=== PATIENT | male | born 1945 | race Caucasian/White ===

== ENCOUNTER 2019-09-16 20:05 | Emergency (ER) | payer MEDICARE, OTHER, SELFPAY ==
[2019-09-16 20:25] VITALS: BP 133/81; PULSE 126; RESP 22; TEMP 39.1; O2SAT 92; BMI 27.3
== END 2019-09-16 21:43 | disposition home or self-care (01) ==
LOC: ER 09-17 03:14
PROVIDERS: Emergency Provider Emergency Medicine; Family Provider Internal Medicine; PCP Internal Medicine
DX: Z53.21 Procedure and treatment not carried out due to patient leaving prior to being seen by health care provider (principal)
CPT/HCPCS: 99281

== ENCOUNTER 2019-12-16 11:20 | Outpatient (CLI) | payer MEDICARE, OTHER, SELFPAY ==
[2019-12-16 12:17] LABS: Basophils % 0.5 %; Eosinophils # 0.1 10^3/uL (0.0-0.8); Eosinophils % 2.2 %; Hematocrit 43.1 % (42.0-52.0); Hemoglobin 13.9 g/dL (11.7-16.6); Lymphocytes # 1.4 10^3/uL (0.8-4.8); Lymphocytes % 26.2 %; Mean Corpuscular HGB Conc 32.3 g/dL (30.0-36.0); Mean Corpuscular Hemoglobin 29.4 pg (28.0-34.0); Mean Corpuscular Volume 91.1 fL (80-94); Mean Platelet Volume 9.7 fL (7.4-10.4); Monocytes # 0.3 10^3/uL (0.2-0.9); Monocytes % 5.8 %; Neutrophils # 3.6 10^3/uL (1.8-7.7); Neutrophils % 65.1 %; Nucleated Red Blood Cells % 0 %; Platelet Count 212 10^3/cmm (130-400); Red Blood Count 4.73 10^6/uL (4.1-5.3); Red Cell Distribution Width 13.7 % (12.1-15.1); White Blood Count 5.5 10^3/uL (4.0-10.0)
[2019-12-16 12:43] LABS: Alanine Aminotransferase 20 U/L (0-41); Albumin Level 3.9 g/dL (3.5-5.2); Alkaline Phosphatase 159 IU/L (40-130); Aspartate Amino Transferase 25 U/L (0-40); Blood Urea Nitrogen 12 mg/dL (8-23); Calcium 9.2 mg/dL (8.5-10.5); Carbon Dioxide 25 mmol/L (22-29); Chloride 103 mmol/L (98-107); Globulin 3.1 g/dL (1.3-4.6); Glucose 122 mg/dL (65-115); Osmolality Calculated 287 mOsm/kg (285-295); Sodium 140 mmol/L (136-145); Total Bilirubin 0.4 mg/dL (0.15-1.2)
[2019-12-16 12:52] LABS: Cancer Antigen 19 9 25.77 U/mL (0-35)
== END 2019-12-16 11:21 | disposition home or self-care (01) ==
LOC: ONCMED 12:54
PROVIDERS: Family Provider Internal Medicine; PCP Internal Medicine; Visit Provider Internal Medicine Medical Oncology
DX: C25.0 Malignant neoplasm of head of pancreas (principal)
CPT/HCPCS: 80053; 85025; 86301

== ENCOUNTER 2020-03-22 09:32 | Outpatient (CLI) | payer MEDICARE, OTHER, SELFPAY ==
[2020-03-22 09:58] LABS: Basophils % 0.6 %; Eosinophils # 0.2 10^3/uL (0.0-0.8); Hematocrit 43.1 % (42.0-52.0); Hemoglobin 13.3 g/dL (11.7-16.6); Lymphocytes # 2.1 10^3/uL (0.8-4.8); Lymphocytes % 30.2 %; Mean Corpuscular HGB Conc 30.9 g/dL (30.0-36.0); Mean Corpuscular Hemoglobin 29.2 pg (28.0-34.0); Mean Corpuscular Volume 94.5 fL (80-94); Mean Platelet Volume 9.7 fL (7.4-10.4); Monocytes # 0.5 10^3/uL (0.2-0.9); Monocytes % 7.3 %; Neutrophils # 4.09 10^3/uL (1.8-7.7); Neutrophils % 58.5 %; Nucleated Red Blood Cells % 0 %; Platelet Count 197 10^3/cmm (130-400); Red Blood Count 4.56 10^6/uL (4.1-5.3); Red Cell Distribution Width 14.3 % (12.1-15.1)
[2020-03-22 10:21] LABS: Alanine Aminotransferase 15 U/L (0-41); Albumin Level 3.9 g/dL (3.5-5.2); Alkaline Phosphatase 129 IU/L (40-130); Aspartate Amino Transferase 23 U/L (0-40); Blood Urea Nitrogen 21 mg/dL (8-23); Cancer Antigen 19 9 26.58 U/mL (0-35); Carbon Dioxide 20 mmol/L (22-29); Chloride 103 mmol/L (98-107); Globulin 3.7 g/dL (1.3-4.6); Glucose 153 mg/dL (65-115); Osmolality Calculated 278 mOsm/kg (285-295); Sodium 134 mmol/L (136-145); Total Bilirubin 0.6 mg/dL (0.15-1.2); Total Protein 7.6 g/dL (6.6-8.7)
--- NOTE | 2020-03-24 16:15 | ONC FU_ITS ---
Dr. Acosta Patient Follow-Up Note Patient: Misbah Springer Unit #: [id number]: 1945 Dicatated By: Evaristo Acosta M.D.Date of Visit:Mar 22, 2020 Onc Med Follow-up/Prog Note Chief Complaint: Pancreatic cancer. History of Present Illness: This is a 74 year-old man with adenocarcinoma of the head of the pancreas. By clinical evaluation, his disease appeared to be stage IIA (T3, N0, M0). His symptoms began in December 2017 with a sensation of fullness in the abdominal area. He then lost appetite and began losing weight. He also got very weak. His CT of the abdomen on 02/15/2018 showed pancreatic ductal dilatation and common bile duct dilatation, the latter measuring up to 22 mm, with abrupt termination secondary to a pancreatic head mass. The mass appeared to measure 3.5 x 3.3 cm. The exam was limited to due lack of IV contrast. He was referred to Dr. Cain Joseph at [facility] in [place] where he underwent ERCP with placement of biliary stent on 03/08/2018. The ERCP showed roughly 3 cm stricture of the distal bile duct with dilatation of the extrahepatic biliary tree proximal to that area. Upper EUS at that time showed a 3.6 x 3.7 hypoechoic mass at the level of the head of the pancreas with obstruction of the extrahepatic bile duct. The mass did not appear to involve the visualized portions of the celiac artery or SMA, but it was noted to abut the portal vein. A 12 x 9 mm hyperechoic nodule was noted in the left lobe of the liver. He underwent FNA of both the pancreatic head mass and the hepatic lesion. Pathology on the liver showed benign hepatocytes with no malignant cells identified. The pancreas showed atypical cells, but no definite malignancy. He had surgical oncology consultation with Dr. Trev Marquez at [facility] on 03/29/2018. CT abdomen/pelvis at that time showed mass in the head of the pancreas measuring approximately 3.8 cm. It was noted to infiltrate the surrounding fat in the pancreaticoduodenal groove. The mass was noted to abut the common hepatic artery along its inferior margin, but it did not appear to be encasing it. It was also noted to abut the inferior margin of the portal vein and the right lateral margin of the geno splenic confluence, but it did not appear to encase vascular structures. The superior mesenteric vein, splenic vein, celiac trunk, splenic artery, and superior mesenteric artery were noted to all be distant from the mass. His recommendation was to initiate chemotherapy following confirmation of tissue diagnosis and then reevaluate for possible surgical resection or chemoradiation. Repeat FNA of the pancreatic head mass on 04/05/2018 was positive for adenocarcinoma. I had seen him initially on 04/20/2018. After discussing options for neoadjuvant chemotherapy, he agreed to begin treatment with a modified FOLFIRINOX regimen. It was administered at a reduced dosage of irinotecan and with omission of the 5-FU bolus. He began cycle 1 of FOLFIRINOX on 04/28/2018. His baseline CA-19-9 level was 515 U/mL. He had no acute toxicity with his treatment. However, at day 10 he was admitted to the hospital after presenting to the emergency room with abdominal pain and fever. He was severely neutropenic, ANC 200. He was treated with Neupogen and broad-spectrum antibiotic coverage, with subsequent recovery. However, during that time he also developed pretty severe diarrhea as well as nausea and anorexia. His clinical course also was complicated by urinary retention. He was discharged home on 05/14/2018 with indwelling Kelly catheter. He was seen for a follow-up visit on 05/24/2018. He still had somewhat marginal performance status, but at that point he was improving. His CA-19-9 level had decreased significantly, to 227 U/mL. Given the fact that he did appear to be showing response to the chemotherapy, we did opt to continue his treatment, but with the regimen changed to modified FOLFOX. He developed some increase in neuropathy with the 1st cycle of FOLFOX, but he otherwise tolerated it well. He was able to continue with the 2nd cycle on 06/07/2018. At that point there was further decrease in the CA-19-9 level to 90 U/mL. He then continued with cycle 3 on 06/22/2018. The CA-19-9 had declined to 44 U/mL. He had followup with Dr. Marquez at [facility] on 07/05/2018. As he appeared to have a good response to the neoadjuvant chemotherapy he was offered the option of undergoing surgical resection. He then underwent pancreaticoduodenectomy on 08/18/2018 with complete resection of the tumor. There was no gross evidence of metastatic disease. Pathology showed just a single focus of residual adenocarcinoma measuring less than 0.1 cm, consistent with near-complete response. There was a residual fibrotic tumor bed extending for approximately 2.1 cm, and there was adjacent high-grade dysplasia. There was no lymphovascular or perineural invasion present. All margins were negative for malignancy. A total of 20 regional lymph nodes were negative for metastatic involvement. Final staging was ypT1a, ypN0. Given the excellent response to the neoadjuvant treatment he was recommended to have additional 4 to 8 cycles of postoperative adjuvant chemotherapy and possibly chemoradiation. He began cycle 1 of postoperative adjuvant chemotherapy with modified FOLFOX on 09/28/2018. He had mild neuropathy symptoms, but no other significant toxicity. He continued with his 2nd postoperative cycle on 10/12/2018, with cycle 3 on 10/26/2018, and with cycle 4 on 11/09/2018. At that point his neuropathy symptoms were getting noticeably worse, and it did opt to stop his chemotherapy after that treatment. He was then followed on observation/expectant management, as he opted not to take chemoradiation. His other medical illnesses include hypertension, dyslipidemia, hypothyroidism, obstructive sleep apnea, and benign prostatic hypertrophy. He also has a history of seizure. He is a nonsmoker. INTERIM HISTORY: He is seen for a followup visit. He has been feeling good generally. He has good energy and activity tolerance. ECOG score is 0. His appetite is pretty good. He does have early satiety. His weight is down just a couple of pounds. He does not have fever or night sweats. He has no shortness of breath, cough, or chest pain. He has no GI or complaints. He has no significant joint or bone pain. He has no residual neuropathy symptoms. Medications: Levothyroxine Sodium 1 Tablet (of 125 mcg) Oral daily, Metoprolol Succinate ER 1.5 (50 mg) Tablet SR 24 HR Oral daily, Tamsulosin HCl 1 Tablet (of 0.4 mg) Capsule Oral at bedtime Allergies: Amoxicillin and Sulfa. Review of Systems: Constitutional - He is generally feeling good and his energy is good. He has normal activity. His appetite is good and weight is down a few pounds from last visit. No fever, night sweats, or hot flashes. ECOG score is 0, ENMT - No sinus congestion/drainage. No mouth sores. No sore throat or difficulty swallowing, Hematologic/Lymphatic - He bruises easily, Respiratory - No shortness of breath. No cough. No pleuritic pain or hemoptysis, Cardiovascular - No angina pain. No palpitations, Gastrointestinal - No nausea or vomiting. No heartburn or acid reflux. No diarrhea or constipation. No blood in the stool or black stools, Genitourinary (M) - No dysuria or hematuria. No urinary frequency. No urgency or incontinence, Musculoskeletal - No joint or bone pain, Integumentary - No skin complications, Neurologic - No headache or dizziness. No numbness or tingling. No other focal neurologic symptoms, Psychiatric - No anxiety or depression. No insomnia. Vital Signs: Performed on Mar 22, 2020 15:17 Height - 68.00 in Weight - 184.4 lbs (LOW) BSA - 1.97 sq.m BMI - 28.04 Temperature - 97.8 F (LOW) Pulse - 51 /min (LOW) Respiration - 18 /min BP - 123/77 mm(hg) O2 Sat - 96 % Pain - 0 Physical Examination: Constitutional - He looks good generally, Eyes - Sclerae nonicteric. Conjunctivae clear, ENMT - No lesions noted in the oral cavity, Hematologic/Lymphatic - No cervical, clavicular, or axillary adenopathy, Respiratory - Lungs are clear with good air movement bilaterally, Cardiovascular - Heart rhythm is regular. There is no murmur, gallop, or rub noted, Abdomen - Soft. He has a large ventral hernia. Liver and spleen are not enlarged. There is no abdominal mass or ascites noted and there is no inguinal adenopathy, Extremities - No edema, Neurologic - No focal neurologic deficits noted. Lab/Imaging: Test performed on Mar 22, 2020 09:45 Sodium 134 mmol/L Potassium 4.0 mmol/L Chloride 103 mmol/L CO2 20 mmol/L Anion Gap 15.0 BUN 21 mg/dL Creatinine 0.9 mg/dL Cr Clearance (Est) 85.1000 mL/min Glucose 153 mg/dL Calcium 9.0 mg/dL Protein, Total 7.6 g/dL Albumin 3.9 g/dL Globulin 3.7 g/dL Bilirubin, Total 0.6 mg/dL ALT (SGPT) 15 U/L AST (SGOT) 23 U/L Alkaline Phosphatase 129 IU/L WBC 7.0 10 3/uL RBC 4.56 10 6/uL HGB 13.3 g/dL HCT 43.1 % MCV 94.5 fL MCH 29.2 pg MCHC 30.9 g/dL RDW 14.3 % Platelet Count 197 10 3/cmm MPV 9.7 fL Neutrophils 4.09 10 3/uL Lymphocytes 2.1 10 3/uL Monocytes 0.5 10 3/uL Eosinophils 0.2 10 3/uL Basophils 0.0 10 3/uL Neutrophil % 58.5 % Lymphocyte % 30.2 % Monocyte % 7.3 % Eosinophil % 3.0 % Basophils % 0.6 % NRBC % 0 % CA 19-9 26.58 U/mL Impression: 1. Patient with adenocarcinoma of the head of the pancreas. By clinical evaluation, his disease appears to be stage IIA (T3, N0, M0). 2. He underwent ERCP with placement of biliary stent and upper EUS 03/08/2018. 3. The diagnosis was confirmed by repeat FNA of the pancreatic head mass on 04/07/2018. His other medical illnesses include: 4. Hypertension. 5. Hyperlipidemia. 6. Hypothyroidism. 7. Obstructive sleep apnea. 8. Benign prostatic hypertrophy. 9. He has a history of seizure. He was recommended to undergo neoadjuvant chemotherapy followed by possible surgery or chemoradiation. He began cycle 1 of neoadjuvant FOLFIRINOX chemotherapy on 04/28/2018. It was administered at a reduced dosage of irinotecan and with omission of the 5-FU bolus. Despite those modifications, he developed multiple toxicities. He required hospital admission at day 10 with neutropenic fever. He recovered uneventfully, but he went on to develop diarrhea and pretty severe nausea/anorexia. He also developed urinary retention, requiring indwelling Kelly catheter. As of his follow-up visit on 05/24/2018 he appeared to have recovered adequately. His CA-19-9 level had declined significantly, from 550 to 227 U/mL. As he did appear to be showing response to chemotherapy, and opted to continue treatment but with the regimen changed to modified FOLFOX. He began cycle 1 on 05/25/2018. He had some increase in neuropathy following that treatment, but he otherwise tolerated it well. He received cycle 2 of modified FOLFOX on 06/07/2018, but with a dose reduction in the oxaliplatin. He continued with cycle 3 of modified FOLFOX in 06/22/2018. At that point his CA-19-9 level had declined to 44 U/mL. He had follow-up with Dr. Marquez at [facility], and given the excellent response to the chemotherapy he was offered the option of undergoing surgical resection. He then underwent pancreaticoduodenectomy on 08/18/2018. Pathology showed near complete response to the chemotherapy with just 1 focus of residual tumor measuring less than 0.1 cm. The surgical margins were free, and there was no involvement in 20 regional lymph nodes. Final pathologic staging was ypT1a, ypN0. Given the excellent response to the neoadjuvant treatment, he was recommended to undergo postoperative adjuvant chemotherapy. He began postoperative cycle 1 of modified FOLFOX on 09/28/2018. He tolerated it pretty well. He was able to continue treatment at 2-week intervals. As of 11/09/2018 he began his 4th postoperative cycle of modified FOLFOX. At that point he had worsening neuropathy with the oxaliplatin, and I opted to stop his chemotherapy after that treatment. He declined to undergo chemoradiation. During subsequent follow-up he had improvement in his performance status, and he had complete resolution of his neuropathy symptoms. At this point he appears to be doing well. There has been no clinical evidence to suggest recurrence of the pancreatic cancer, and his tumor marker remains stable. Plan: He remains on observation/expectant management. I will see him again in 3 months. Signed By: Evaristo Acosta M.D. <<Signature on File>>
== END 2020-03-22 09:33 | disposition home or self-care (01) ==
LOC: ONCMED 09:37
PROVIDERS: PCP Internal Medicine; Visit Provider Internal Medicine Medical Oncology
DX: Z08 Encounter for follow-up examination after completed treatment for malignant neoplasm (principal); Z85.07 Personal history of malignant neoplasm of pancreas; I10 Essential (primary) hypertension; E78.5 Hyperlipidemia, unspecified; E03.9 Hypothyroidism, unspecified; G47.33 Obstructive sleep apnea (adult) (pediatric); N40.0 Benign prostatic hyperplasia without lower urinary tract symptoms; Z90.411 Acquired partial absence of pancreas; Z92.21 Personal history of antineoplastic chemotherapy
CPT/HCPCS: 80053; 85025; 86301; G0463

== ENCOUNTER 2020-07-09 11:32 | Outpatient (CLI) | payer MEDICARE, OTHER, SELFPAY ==
[2020-07-09 12:21] LABS: Basophils # 0.1 10^3/uL (0.0-0.1); Basophils % 0.9 %; Eosinophils # 0.2 10^3/uL (0.0-0.8); Eosinophils % 2.8 %; Hematocrit 43.7 % (42.0-52.0); Hemoglobin 14.1 g/dL (11.7-16.6); Lymphocytes # 2.2 10^3/uL (0.8-4.8); Lymphocytes % 33.1 %; Mean Corpuscular HGB Conc 32.3 g/dL (30.0-36.0); Mean Corpuscular Hemoglobin 30.1 pg (28.0-34.0); Mean Corpuscular Volume 93.2 fL (80-94); Mean Platelet Volume 9.4 fL (7.4-10.4); Monocytes # 0.4 10^3/uL (0.2-0.9); Monocytes % 6.5 %; Neutrophils % 56.4 %; Nucleated Red Blood Cells % 0 %; Platelet Count 222 10^3/cmm (130-400); Red Blood Count 4.69 10^6/uL (4.1-5.3); Red Cell Distribution Width 13.6 % (12.1-15.1); White Blood Count 6.7 10^3/uL (4.0-10.0)
[2020-07-09 13:01] LABS: Alanine Aminotransferase 24 U/L (0-41); Albumin Level 4.2 g/dL (3.5-5.2); Alkaline Phosphatase 158 IU/L (40-130); Anion Gap 12.5 (5-19); Aspartate Amino Transferase 27 U/L (0-40); Blood Urea Nitrogen 15 mg/dL (8-23); Calcium 9.2 mg/dL (8.5-10.5); Cancer Antigen 19 9 31.34 U/mL (0-35); Carbon Dioxide 28 mmol/L (22-29); Chloride 101 mmol/L (98-107); Globulin 3.1 g/dL (1.3-4.6); Glucose 102 mg/dL (65-115); Osmolality Calculated 285 mOsm/kg (285-295); Potassium 4.5 mmol/L (3.5-5.1); Sodium 137 mmol/L (136-145); Total Bilirubin 0.5 mg/dL (0.15-1.2); Total Protein 7.3 g/dL (6.6-8.7)
--- NOTE | 2020-07-09 21:26 | ONC FU_ITS ---
Dr. Acosta Patient Follow-Up Note Patient: Misbah Springer Unit #: [id number]: 1945 Dicatated By: Evaristo Acosta M.D.Date of Visit:Jul 09, 2020 Onc Med Follow-up/Prog Note Chief Complaint: Pancreatic cancer. History of Present Illness: This is a 74 year-old man with adenocarcinoma of the head of the pancreas. By clinical evaluation, his disease appeared to be stage IIA (T3, N0, M0). His symptoms began in December 2017 with a sensation of fullness in the abdominal area. He then lost appetite and began losing weight. He also got very weak. His CT of the abdomen on 02/15/2018 showed pancreatic ductal dilatation and common bile duct dilatation, the latter measuring up to 22 mm, with abrupt termination secondary to a pancreatic head mass. The mass appeared to measure 3.5 x 3.3 cm. The exam was limited to due lack of IV contrast. He was referred to Dr. Cain Joseph at [facility] in [place] where he underwent ERCP with placement of biliary stent on 03/08/2018. The ERCP showed roughly 3 cm stricture of the distal bile duct with dilatation of the extrahepatic biliary tree proximal to that area. Upper EUS at that time showed a 3.6 x 3.7 hypoechoic mass at the level of the head of the pancreas with obstruction of the extrahepatic bile duct. The mass did not appear to involve the visualized portions of the celiac artery or SMA, but it was noted to abut the portal vein. A 12 x 9 mm hyperechoic nodule was noted in the left lobe of the liver. He underwent FNA of both the pancreatic head mass and the hepatic lesion. Pathology on the liver showed benign hepatocytes with no malignant cells identified. The pancreas showed atypical cells, but no definite malignancy. He had surgical oncology consultation with Dr. Trev Marquez at [facility] on 03/29/2018. CT abdomen/pelvis at that time showed mass in the head of the pancreas measuring approximately 3.8 cm. It was noted to infiltrate the surrounding fat in the pancreaticoduodenal groove. The mass was noted to abut the common hepatic artery along its inferior margin, but it did not appear to be encasing it. It was also noted to abut the inferior margin of the portal vein and the right lateral margin of the geno splenic confluence, but it did not appear to encase vascular structures. The superior mesenteric vein, splenic vein, celiac trunk, splenic artery, and superior mesenteric artery were noted to all be distant from the mass. His recommendation was to initiate chemotherapy following confirmation of tissue diagnosis and then reevaluate for possible surgical resection or chemoradiation. Repeat FNA of the pancreatic head mass on 04/05/2018 was positive for adenocarcinoma. I had seen him initially on 04/20/2018. After discussing options for neoadjuvant chemotherapy, he agreed to begin treatment with a modified FOLFIRINOX regimen. It was administered at a reduced dosage of irinotecan and with omission of the 5-FU bolus. He began cycle 1 of FOLFIRINOX on 04/28/2018. His baseline CA-19-9 level was 515 U/mL. He had no acute toxicity with his treatment. However, at day 10 he was admitted to the hospital after presenting to the emergency room with abdominal pain and fever. He was severely neutropenic, ANC 200. He was treated with Neupogen and broad-spectrum antibiotic coverage, with subsequent recovery. However, during that time he also developed pretty severe diarrhea as well as nausea and anorexia. His clinical course also was complicated by urinary retention. He was discharged home on 05/14/2018 with indwelling Kelly catheter. He was seen for a follow-up visit on 05/24/2018. He still had somewhat marginal performance status, but at that point he was improving. His CA-19-9 level had decreased significantly, to 227 U/mL. Given the fact that he did appear to be showing response to the chemotherapy, we did opt to continue his treatment, but with the regimen changed to modified FOLFOX. He developed some increase in neuropathy with the 1st cycle of FOLFOX, but he otherwise tolerated it well. He was able to continue with the 2nd cycle on 06/07/2018. At that point there was further decrease in the CA-19-9 level to 90 U/mL. He then continued with cycle 3 on 06/22/2018. The CA-19-9 had declined to 44 U/mL. He had followup with Dr. Marquez at [facility] on 07/05/2018. As he appeared to have a good response to the neoadjuvant chemotherapy he was offered the option of undergoing surgical resection. He then underwent pancreaticoduodenectomy on 08/18/2018 with complete resection of the tumor. There was no gross evidence of metastatic disease. Pathology showed just a single focus of residual adenocarcinoma measuring less than 0.1 cm, consistent with near-complete response. There was a residual fibrotic tumor bed extending for approximately 2.1 cm, and there was adjacent high-grade dysplasia. There was no lymphovascular or perineural invasion present. All margins were negative for malignancy. A total of 20 regional lymph nodes were negative for metastatic involvement. Final staging was ypT1a, ypN0. Given the excellent response to the neoadjuvant treatment he was recommended to have additional 4 to 8 cycles of postoperative adjuvant chemotherapy and possibly chemoradiation. He began cycle 1 of postoperative adjuvant chemotherapy with modified FOLFOX on 09/28/2018. He had mild neuropathy symptoms, but no other significant toxicity. He continued with his 2nd postoperative cycle on 10/12/2018, with cycle 3 on 10/26/2018, and with cycle 4 on 11/09/2018. At that point his neuropathy symptoms were getting noticeably worse, and it did opt to stop his chemotherapy after that treatment. He was then followed on observation/expectant management, as he opted not to take chemoradiation. His other medical illnesses include hypertension, dyslipidemia, hypothyroidism, obstructive sleep apnea, and benign prostatic hypertrophy. He also has a history of seizure. He is a nonsmoker. INTERIM HISTORY: He is seen for a followup visit. He has been feeling good generally. He has pretty good energy. He is able to do light work. His appetite has been okay, though he does not eat as much at 1 time as he used to. His weight is up 5 pounds. He occasionally will have fever, though without any other associated symptoms. His had recently documented his temperature at 102.8 degrees. He does not have night sweating. He has no shortness of breath, cough, or chest pain. He has no GI/ complaints other than his stomach sometimes rumbles a lot. He has no significant joint or bone pain. He does not complain of headache. He does have some difficulty with balance. He has no numbness/paresthesia or other focal neurologic symptoms. Medications: Levothyroxine Sodium 1 Tablet (of 125 mcg) Oral daily, Metoprolol Succinate ER 1.5 (50 mg) Tablet SR 24 HR Oral daily, Tamsulosin HCl 1 Tablet (of 0.4 mg) Capsule Oral at bedtime Allergies: Amoxicillin and Sulfa. Review of Systems: Constitutional - His energy is pretty good. He is able to do some light work. Appetite is okay, he does not eat as much at 1 time as he used to. Weight is up 5 pounds. He occasionally has fever, but without other associated symptoms. He does not have night sweating. ECOG score is 1, ENMT - No sinus congestion/drainage. No mouth sores. No sore throat or difficulty swallowing, Hematologic/Lymphatic - No abnormal bruising or bleeding, Respiratory - No shortness of breath. No cough. No pleuritic pain or hemoptysis, Cardiovascular - No angina pain. No palpitations, Gastrointestinal - No nausea or vomiting. No heartburn or acid reflux. No diarrhea or constipation. No blood in the stool or black stools, Genitourinary (M) - No dysuria or hematuria. No urinary frequency. No urgency or incontinence, Musculoskeletal - No joint or bone pain, Integumentary - No skin rash, Neurologic - No headache or dizziness. He does have difficulty with balance. No numbness or tingling. No other focal neurologic symptoms, Psychiatric - No anxiety or depression. No insomnia. Vital Signs: Performed on Jul 09, 2020 15:44 Height - 68.00 in Weight - 189.4 lbs (HIGH) BSA - 2.00 sq.m BMI - 28.80 Temperature - 97.3 F (LOW) Pulse - 58 /min (LOW) Respiration - 18 /min BP - 157/93 mm(hg) (HIGH) O2 Sat - 97 % Pain - 0 Physical Examination: Constitutional - He looks good generally, Eyes - Sclerae nonicteric. Conjunctivae clear, ENMT - No lesions noted in the oral cavity, Hematologic/Lymphatic - No cervical, clavicular, or axillary adenopathy, Respiratory - Lungs are clear with good air movement bilaterally, Cardiovascular - Heart rhythm is regular. There is no murmur, gallop, or rub noted, Abdomen - Soft. He has a large ventral hernia. Liver and spleen are not enlarged. There is no abdominal mass or ascites noted and there is no inguinal adenopathy, Extremities - No edema, Neurologic - No focal neurologic deficits noted. Lab/Imaging: Test performed on Jul 09, 2020 11:50 Sodium 137 mmol/L Potassium 4.5 mmol/L Chloride 101 mmol/L CO2 28 mmol/L Anion Gap 12.5 BUN 15 mg/dL Creatinine 0.9 mg/dL Cr Clearance (Est) 85.1000 mL/min Glucose 102 mg/dL Osmolality - Calculated 285 mOsm/kg Calcium 9.2 mg/dL Protein, Total 7.3 g/dL Albumin 4.2 g/dL Globulin 3.1 g/dL Bilirubin, Total 0.5 mg/dL ALT (SGPT) 24 U/L AST (SGOT) 27 U/L Alkaline Phosphatase 158 IU/L WBC 6.7 10 3/uL RBC 4.69 10 6/uL HGB 14.1 g/dL HCT 43.7 % MCV 93.2 fL MCH 30.1 pg MCHC 32.3 g/dL RDW 13.6 % Platelet Count 222 10 3/cmm MPV 9.4 fL Neutrophils 3.80 10 3/uL Lymphocytes 2.2 10 3/uL Monocytes 0.4 10 3/uL Eosinophils 0.2 10 3/uL Basophils 0.1 10 3/uL Neutrophil % 56.4 % Lymphocyte % 33.1 % Monocyte % 6.5 % Eosinophil % 2.8 % Basophils % 0.9 % NRBC % 0 % CA 19-9 31.34 U/mL Impression: 1. Patient with adenocarcinoma of the head of the pancreas. By clinical evaluation, his disease appears to be stage IIA (T3, N0, M0). 2. He underwent ERCP with placement of biliary stent and upper EUS 03/08/2018. 3. The diagnosis was confirmed by repeat FNA of the pancreatic head mass on 04/07/2018. His other medical illnesses include: 4. Hypertension. 5. Hyperlipidemia. 6. Hypothyroidism. 7. Obstructive sleep apnea. 8. Benign prostatic hypertrophy. 9. He has a history of seizure. He was recommended to undergo neoadjuvant chemotherapy followed by possible surgery or chemoradiation. He began cycle 1 of neoadjuvant FOLFIRINOX chemotherapy on 04/28/2018. It was administered at a reduced dosage of irinotecan and with omission of the 5-FU bolus. Despite those modifications, he developed multiple toxicities. He required hospital admission at day 10 with neutropenic fever. He recovered uneventfully, but he went on to develop diarrhea and pretty severe nausea/anorexia. He also developed urinary retention, requiring indwelling Kelly catheter. As of his follow-up visit on 05/24/2018 he appeared to have recovered adequately. His CA-19-9 level had declined significantly, from 550 to 227 U/mL. As he did appear to be showing response to chemotherapy, and opted to continue treatment but with the regimen changed to modified FOLFOX. He began cycle 1 on 05/25/2018. He had some increase in neuropathy following that treatment, but he otherwise tolerated it well. He received cycle 2 of modified FOLFOX on 06/07/2018, but with a dose reduction in the oxaliplatin. He continued with cycle 3 of modified FOLFOX in 06/22/2018. At that point his CA-19-9 level had declined to 44 U/mL. He had follow-up with Dr. Marquez at [facility], and given the excellent response to the chemotherapy he was offered the option of undergoing surgical resection. He then underwent pancreaticoduodenectomy on 08/18/2018. Pathology showed near complete response to the chemotherapy with just 1 focus of residual tumor measuring less than 0.1 cm. The surgical margins were free, and there was no involvement in 20 regional lymph nodes. Final pathologic staging was ypT1a, ypN0. Given the excellent response to the neoadjuvant treatment, he was recommended to undergo postoperative adjuvant chemotherapy. He began postoperative cycle 1 of modified FOLFOX on 09/28/2018. He tolerated it pretty well. He was able to continue treatment at 2-week intervals. As of 11/09/2018 he began his 4th postoperative cycle of modified FOLFOX. At that point he had worsening neuropathy with the oxaliplatin, and I opted to stop his chemotherapy after that treatment. He declined to undergo chemoradiation. During subsequent follow-up he had improvement in his performance status, and he had complete resolution of his neuropathy symptoms. His clinical status since then remained stable, and his CA 19-9 level has also remained stable. He has been getting surveillance CT scans at [facility] in [place], but his follow-up visits there has been put off due to the COVID-19 pandemic. Plan: He remains on observation/expectant management. He will be scheduled for surveillance CT abdomen/pelvis, which is overdue. I will tentatively plan a follow-up visit in 3 months. Signed By: Evaristo Acosta M.D. <<Signature on File>>
== END 2020-07-09 11:33 | disposition home or self-care (01) ==
LOC: ONCMED 11:34
PROVIDERS: PCP Internal Medicine; Visit Provider Internal Medicine Medical Oncology
DX: C25.0 Malignant neoplasm of head of pancreas (principal); I10 Essential (primary) hypertension; E78.5 Hyperlipidemia, unspecified; E03.9 Hypothyroidism, unspecified; G47.33 Obstructive sleep apnea (adult) (pediatric); N40.0 Benign prostatic hyperplasia without lower urinary tract symptoms; Z92.21 Personal history of antineoplastic chemotherapy; Z90.49 Acquired absence of other specified parts of digestive tract
CPT/HCPCS: 36415; 80053; 85025; 86301; G0463

== ENCOUNTER 2020-07-19 09:46 | Outpatient (CLI) | payer MEDICARE, OTHER, SELFPAY ==
--- NOTE | 2020-07-19 | CT_ITS ---
WS: [id number] CT scan of the abdomen and pelvis with Oral and IV contrast. Additional two-dimensional coronal and s agittal reconstruction was performed. 07/19/2020 Clinical Data: PANCREATIC CANCER Comparison: None. DLP: 1115.[address] scans at [facility] use at least one of these dose optimization techniques: automat ed exposure control; mA and/or kV adjustment per patient size (includes targeted exams where dose is matched to clinical indication); or iterative reconstruction. Findings: The lower lungs show no nodules, masses or effusions. There is a small hiatal hernia. The liver shows air within the biliary ductal system which has been seen before. No hepatic cysts, ma sses or portal vein invasion is seen. No metastatic lesions are seen within the liver. The gallbladde r is not imaged. The head of the pancreas now measures 2.92 x 5.90 cm and represents a known pancreatic carcinoma. The distal pancreas shows no ductal dilatation. The spleen shows numerous granulomas. The adrenal glands are not remarkable. The kidneys show equal bilateral contrast excretion with no cyst or masses. No hydronephrosis or jenn l calculi are seen. There is a ventral hernia with an orifice measuring 5.74 cm which contains small bowel. This is seen best on image 27 of 97 on the axial views. Then inferior is another ventral hernia with the orifice m easuring 4.01 cm containing small bowel. This is seen best on axial image 38 of 97. There is a third ventral hernia with the orifice measuring 2.79 cm containing only omental fat. This is seen best on a xial image 51 of 97. The abdominal aorta is normal in size. No appendicitis or diverticulitis is seen but there are numerous sigmoid diverticula.. Oral contrast is in the small bowel and colon, and there is no bowel dilatation. No abscess, adenopathy, ascites, o bstruction or free air is seen. The bladder is unremarkable. The prostate is enlarged. No inguinal hernia is seen. The lumbar vertebral bodies show osteoarthritic change but no metastatic disease is seen.. CT/CT abdomen pelvis w con* [id number] Impression: 1. Enlarged head of the pancreas now measuring 2.92 x 5.90 cm which is a known pancreatic carcinoma. 2. Air in the biliary system. 3. 3 ventral hernias.
[2020-07-19] MEDS: iohexol 300 mg/mL 50 mL Btl PO (11:17)
[2020-07-19] MEDS: iohexol 300 mg/mL 100 mL Btl IV (11:43)
== END 2020-07-19 09:47 | disposition home or self-care (01) ==
PROVIDERS: PCP Internal Medicine; Visit Provider Internal Medicine Medical Oncology
DX: C25.0 Malignant neoplasm of head of pancreas (principal); K43.9 Ventral hernia without obstruction or gangrene
CPT/HCPCS: 74177; Q9967

== ENCOUNTER 2020-10-11 08:49 | Outpatient (CLI) | payer MEDICARE, OTHER, SELFPAY ==
[2020-10-11 09:25] LABS: Basophils # 0.1 10^3/uL (0.0-0.1); Basophils % 0.7 %; Eosinophils # 0.2 10^3/uL (0.0-0.8); Eosinophils % 2.6 %; Hematocrit 43.9 % (42.0-52.0); Hemoglobin 14.5 g/dL (11.7-16.6); Lymphocytes # 1.9 10^3/uL (0.8-4.8); Lymphocytes % 24.9 %; Mean Corpuscular Hemoglobin 29.7 pg (28.0-34.0); Mean Corpuscular Volume 89.8 fL (80-94); Mean Platelet Volume 9.4 fL (7.4-10.4); Monocytes # 0.5 10^3/uL (0.2-0.9); Monocytes % 6.7 %; Neutrophils # 4.82 10^3/uL (1.8-7.7); Neutrophils % 64.8 %; Nucleated Red Blood Cells % 0 %; Platelet Count 226 10^3/cmm (130-400); Red Blood Count 4.89 10^6/uL (4.1-5.3); White Blood Count 7.4 10^3/uL (4.0-10.0)
[2020-10-11 09:59] LABS: Alanine Aminotransferase 15 U/L (0-41); Albumin Level 4.1 g/dL (3.5-5.2); Alkaline Phosphatase 166 IU/L (40-130); Anion Gap 13.7 (5-19); Aspartate Amino Transferase 20 U/L (0-40); Blood Urea Nitrogen 10 mg/dL (8-23); Cancer Antigen 19 9 29.91 U/mL (0-35); Carbon Dioxide 26 mmol/L (22-29); Chloride 100 mmol/L (98-107); Globulin 3.5 g/dL (1.3-4.6); Glucose 138 mg/dL (65-115); Osmolality Calculated 283 mOsm/kg (285-295); Potassium 3.7 mmol/L (3.5-5.1); Sodium 136 mmol/L (136-145); Total Bilirubin 0.5 mg/dL (0.15-1.2); Total Protein 7.6 g/dL (6.6-8.7)
--- NOTE | 2020-10-11 19:32 | ONC FU_ITS ---
Dr. Acosta Patient Follow-Up Note Patient: Misbah Springer Unit #: [id number]: 1945 Dicatated By: Evaristo Acosta M.D.Date of Visit:Oct 11, 2020 Onc Med Follow-up/Prog Note Chief Complaint: Pancreatic cancer. 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 By clinical evaluation, his disease appeared to be stage IIA (T3, N0, M0). His symptoms began in December 2017 with a sensation of fullness in the abdominal area. He then lost appetite and began losing weight. He also got very weak. His CT of the abdomen on 02/15/2018 showed pancreatic ductal dilatation and common bile duct dilatation, the latter measuring up to 22 mm, with abrupt termination secondary to a pancreatic head mass. The mass appeared to measure 3.5 x 3.3 cm. The exam was limited to due lack of IV contrast. He was referred to Dr. Cain Joseph at [facility] in [place] where he underwent ERCP with placement of biliary stent on 03/08/2018. The ERCP showed roughly 3 cm stricture of the distal bile duct with dilatation of the extrahepatic biliary tree proximal to that area. Upper EUS at that time showed a 3.6 x 3.7 hypoechoic mass at the level of the head of the pancreas with obstruction of the extrahepatic bile duct. The mass did not appear to involve the visualized portions of the celiac artery or SMA, but it was noted to abut the portal vein. A 12 x 9 mm hyperechoic nodule was noted in the left lobe of the liver. He underwent FNA of both the pancreatic head mass and the hepatic lesion. Pathology on the liver showed benign hepatocytes with no malignant cells identified. The pancreas showed atypical cells, but no definite malignancy. He had surgical oncology consultation with Dr. Trev Marquez at [facility] on 03/29/2018. CT abdomen/pelvis at that time showed mass in the head of the pancreas measuring approximately 3.8 cm. It was noted to infiltrate the surrounding fat in the pancreaticoduodenal groove. The mass was noted to abut the common hepatic artery along its inferior margin, but it did not appear to be encasing it. It was also noted to abut the inferior margin of the portal vein and the right lateral margin of the geno splenic confluence, but it did not appear to encase vascular structures. The superior mesenteric vein, splenic vein, celiac trunk, splenic artery, and superior mesenteric artery were noted to all be distant from the mass. His recommendation was to initiate chemotherapy following confirmation of tissue diagnosis and then reevaluate for possible surgical resection or chemoradiation. Repeat FNA of the pancreatic head mass on 04/05/2018 was positive for adenocarcinoma. I had seen him initially on 04/20/2018. After discussing options for neoadjuvant chemotherapy, he agreed to begin treatment with a modified FOLFIRINOX regimen. It was administered at a reduced dosage of irinotecan and with omission of the 5-FU bolus. He began cycle 1 of FOLFIRINOX on 04/28/2018. His baseline CA-19-9 level was 515 U/mL. He had no acute toxicity with his treatment. However, at day 10 he was admitted to the hospital after presenting to the emergency room with abdominal pain and fever. He was severely neutropenic, ANC 200. He was treated with Neupogen and broad-spectrum antibiotic coverage, with subsequent recovery. However, during that time he also developed pretty severe diarrhea as well as nausea and anorexia. His clinical course also was complicated by urinary retention. He was discharged home on 05/14/2018 with indwelling Kelly catheter. He was seen for a follow-up visit on 05/24/2018. He still had somewhat marginal performance status, but at that point he was improving. His CA-19-9 level had decreased significantly, to 227 U/mL. Given the fact that he did appear to be showing response to the chemotherapy, we did opt to continue his treatment, but with the regimen changed to modified FOLFOX. He developed some increase in neuropathy with the 1st cycle of FOLFOX, but he otherwise tolerated it well. He was able to continue with the 2nd cycle on 06/07/2018. At that point there was further decrease in the CA-19-9 level to 90 U/mL. He then continued with cycle 3 on 06/22/2018. The CA-19-9 had declined to 44 U/mL. He had followup with Dr. Marquez at [facility] on 07/05/2018. As he appeared to have a good response to the neoadjuvant chemotherapy he was offered the option of undergoing surgical resection. He then underwent pancreaticoduodenectomy on 08/18/2018 with complete resection of the tumor. There was no gross evidence of metastatic disease. Pathology showed just a single focus of residual adenocarcinoma measuring less than 0.1 cm, consistent with near-complete response. There was a residual fibrotic tumor bed extending for approximately 2.1 cm, and there was adjacent high-grade dysplasia. There was no lymphovascular or perineural invasion present. All margins were negative for malignancy. A total of 20 regional lymph nodes were negative for metastatic involvement. Final staging was ypT1a, ypN0. Given the excellent response to the neoadjuvant treatment he was recommended to have additional 4 to 8 cycles of postoperative adjuvant chemotherapy and possibly chemoradiation. He began cycle 1 of postoperative adjuvant chemotherapy with modified FOLFOX on 09/28/2018. He had mild neuropathy symptoms, but no other significant toxicity. He continued with his 2nd postoperative cycle on 10/12/2018, with cycle 3 on 10/26/2018, and with cycle 4 on 11/09/2018. At that point his neuropathy symptoms were getting noticeably worse, and it did opt to stop his chemotherapy after that treatment. He was then followed on observation/expectant management, as he opted not to take chemoradiation. His other medical illnesses include hypertension, dyslipidemia, hypothyroidism, obstructive sleep apnea, and benign prostatic hypertrophy. He also has a history of seizure. He is a nonsmoker. INTERIM HISTORY: At his follow-up visit in June his CA 19-9 level had increased to 34 U/mL. A surveillance CT abdomen/pelvis on 07/19/2020 showed residual density in the area of the head of the pancreas measuring 2.92 x 5.90 cm. There was air noted in the biliary system and he was noted to have 3 ventral hernias. There was no obvious metastatic disease. He continued on observation/expectant management. He is seen for a followup visit. He says he has been feeling fine. His energy has been pretty good, and he has normal activity. ECOG score is 0. Appetite also has been good. His weight is up a few pounds. He does not have fever or night sweats. He has no shortness of breath, cough, or chest pain. He has no GI complaints other than his stools have been soft ever since his surgery. He has not had diarrhea, though. His urination has been slowing down a little. He is seeing a urologist in [place]. He has no significant joint or bone pain. He does not complain of headache or dizziness, and he has no focal neurologic symptoms. In particular, he has no residual neuropathy. Medications: Levothyroxine Sodium 1 Tablet (of 125 mcg) Oral daily, Metoprolol Succinate ER 1.5 (50 mg) Tablet SR 24 HR Oral daily, Tamsulosin HCl 1 Tablet (of 0.4 mg) Capsule Oral at bedtime Allergies: Amoxicillin and Sulfa. Vital Signs: Performed on Oct 11, 2020 14:56 Height - 68.00 in Weight - 193 lbs (HIGH) BSA - 2.01 sq.m BMI - 29.35 Temperature - 97.1 F (LOW) Pulse - 68 /min Respiration - 17 /min BP - 144/94 mm(hg) (HIGH) O2 Sat - 98 % Pain - 0 Physical Examination: Constitutional - He looks good generally, Eyes - Sclerae nonicteric. Conjunctivae clear, ENMT - No lesions noted in the oral cavity, Hematologic/Lymphatic - No cervical, clavicular, or axillary adenopathy, Respiratory - Lungs are clear with good air movement bilaterally, Cardiovascular - Heart rhythm is regular. There is no murmur, gallop, or rub noted, Abdomen - Soft. He has a ventral hernia. Liver and spleen are not enlarged. There is no abdominal mass or ascites noted and there is no inguinal adenopathy, Extremities - No edema, Neurologic - No focal neurologic deficits noted. Lab/Imaging: CBC shows hemoglobin 14.5 g, white blood cell count 7400, and platelet count 226,000. Comprehensive metabolic profile is unremarkable except for mildly elevated alkaline phosphatase at 166/130 IU/L. The CA 19-9 level is back down to 29.9 U/mL. Problem List: 1. Adenocarcinoma of the head of the pancreas. By clinical evaluation, his disease appears to be stage IIA (T3, N0, M0). He underwent ERCP with placement of biliary stent and upper EUS 03/08/2018. The diagnosis was confirmed by repeat FNA of the pancreatic head mass on 04/07/2018. 2. Hypertension. 3. Hyperlipidemia. 4. Hypothyroidism. 5. Obstructive sleep apnea. 6. Benign prostatic hypertrophy. 7. He has a history of seizure. Problems Addressed with this Encounter and Plan: Adenocarcinoma of the head of the pancreas. By clinical evaluation, his disease appears to be stage IIA (T3, N0, M0). He underwent ERCP with placement of biliary stent and upper EUS 03/08/2018. The diagnosis was confirmed by repeat FNA of the pancreatic head mass on 04/07/2018. He had a very good response to neoadjuvant chemotherapy with FOLFIRINOX, though it did cause severe toxicities. He had further neoadjuvant chemotherapy with 3 cycles of modified FOLFOX and he then underwent pancreaticoduodenectomy on 08/18/2018. Pathology showed near complete response to the chemotherapy with one focus of residual tumor measuring less than 0.1 cm. The margins were free and there was no involvement in 20 lymph nodes. Pathologic staging was ypT1a, ypN0. He was then given postoperative adjuvant chemotherapy with an additional 4 cycles of modified FOLFOX, completed in October 2018. He was then followed on observation/expectant management, as he declined chemoradiation. As of his follow-up visit in June 2020 there was an increase in his CA 19-9 level up to 34 U/mL. His surveillance CT abdomen/pelvis on 07/19/2020 showed residual density in the area of the head of the pancreas measuring 2.92 x 5.90 cm. There was air noted in the biliary system, and he was noted to have 3 ventral hernias. There was no obvious metastatic disease. During further follow-up, he has been doing well clinically. His current CA 19-9 level is back down to 29.91 U/mL. He will continue on observation/expectant management. I will see him again in [address] of the abdomen/pelvis. Signed By: Evaristo Acosta M.D. <<Signature on File>>
== END 2020-10-11 08:50 | disposition home or self-care (01) ==
LOC: ONCMED 08:52
PROVIDERS: PCP Internal Medicine; Visit Provider Internal Medicine Medical Oncology
DX: C25.0 Malignant neoplasm of head of pancreas (principal); Z92.21 Personal history of antineoplastic chemotherapy
CPT/HCPCS: 36415; 80053; 85025; 86301; G0463

== ENCOUNTER 2021-01-11 10:41 | Outpatient (CLI) | payer MEDICARE, OTHER, SELFPAY ==
--- NOTE | 2021-01-11 11:20 | CT_ITS ---
WS: [id number] CT ABDOMEN AND PELVIS WITH CONTRAST HISTORY: PANCREATIC CANCER TECHNIQUE: Imaging performed of the abdomen and pelvis with IV contrast. Single phase imaging of the abdomen. Coronal and sagittal reformats are submitted. All CT scans at [facility] use at least one of these dose optimization techniques: automated exposure control; mA and/or kV adjustment per patient size (includes targeted exams where dose is matched to clinical indication); or iterativ e reconstruction. IV CONTRAST: Omnipaque 300; 95 mL IV. Oral contrast: Yes. DLP: 1609.54 mGy.cm COMPARISON: 07/19/2020 Lower thorax: Emphysematous changes at the lung bases. Bilateral lower lobe scarring and bronchiectas is. No pulmonary mass or nodule. Heart is normal size. No hiatal hernia. Liver/biliary system: Normal size liver. Again noted is mild heterogeneity throughout the liver with pneumobilia. No metastatic lesions. Gallbladder: Prior cholecystectomy. Pancreas: Status post pancreaticoduodenectomy. There is a soft tissue lobulated mass at the region of the pancreatic head which is progressed since 07/19/2020. This soft tissue measures 3.4 x 6.3 cm. Thi s mass is not as low attenuation is typically seen for pancreatic lesion. The fact that is increased in size since 07/19/2020 is concerning for recurrent cancer. There is mild atrophy of the pancreatic t ail but stable. Spleen: Splenic granulomata. Adrenal glands: Normal. Right kidney: Normal. Left kidney: Normal. Aorta: Mild atherosclerosis aorta. Lymphadenopathy: None. Free fluid: None. GI tract: No GI tract obstruction. Extensive diverticular disease in the sigmoid colon. Abdominal wall: Multifocal abdominal wall hernias. Supraumbilical hernia contains a loop of colon wit h no obstruction. There is additional umbilical hernia containing colon but no obstruction. Fat-conta ining hernia below the umbilicus. Pelvis: Well-distended urinary bladder. Marked enlargement of the prostate gland. Heterogeneous prost ate gland measures 6.4 x 5.4 x 6.3 cm. Bones: Anterolisthesis of L5. Mild degenerative changes at the hip joints. CT/CT abdomen pelvis w con* [id number] IMPRESSION: 1. Increasing soft tissue mass at the pancreatic head. Increased in size since 07/19/2020. No ascites or adjacent inflammatory changes. This could be a cluste r of lymph nodes or recurrent pancreatic neoplasm. 2. No ascites. 3. Pneumobilia, stable. 4. 3 ventral abdominal wall hernias not causing obstruction.
[2021-01-11 11:29] LABS: Basophils % 0.6 %; Eosinophils # 0.2 10^3/uL (0.0-0.8); Eosinophils % 3.2 %; Hematocrit 44.9 % (42.0-52.0); Hemoglobin 14.8 g/dL (11.7-16.6); Lymphocytes # 1.9 10^3/uL (0.8-4.8); Lymphocytes % 29.2 %; Mean Corpuscular Volume 90.9 fL (80-94); Mean Platelet Volume 9.9 fL (7.4-10.4); Monocytes # 0.4 10^3/uL (0.2-0.9); Monocytes % 6.7 %; Neutrophils # 3.92 10^3/uL (1.8-7.7); Nucleated Red Blood Cells % 0 %; Platelet Count 211 10^3/cmm (130-400); Red Blood Count 4.94 10^6/uL (4.1-5.3); Red Cell Distribution Width 13.4 % (12.1-15.1); White Blood Count 6.5 10^3/uL (4.0-10.0)
[2021-01-11 12:22] LABS: Alanine Aminotransferase 15 U/L (0-41); Albumin Level 3.8 g/dL (3.5-5.2); Alkaline Phosphatase 157 IU/L (40-130); Blood Urea Nitrogen 12 mg/dL (8-23); Calcium 8.3 mg/dL (8.5-10.5); Cancer Antigen 19 9 28.24 U/mL (0-35); Carbon Dioxide 26 mmol/L (22-29); Chloride 103 mmol/L (98-107); Glucose 101 mg/dL (65-115); Osmolality Calculated 280 mOsm/kg (285-295); Sodium 135 mmol/L (136-145); Total Bilirubin 0.6 mg/dL (0.15-1.2); Total Protein 6.8 g/dL (6.6-8.7)
[2021-01-11 12:23] LABS: Anion Gap 10.4 (5-19); Aspartate Amino Transferase 21 U/L (0-40); Potassium 4.4 mmol/L (3.5-5.1)
[2021-01-11] MEDS: iohexol 300 mg/mL 50 mL Btl PO (13:11)
[2021-01-11] MEDS: iohexol 300 mg/mL 100 mL Btl IV (13:11)
== END 2021-01-11 10:42 | disposition home or self-care (01) ==
PROVIDERS: PCP Internal Medicine; Visit Provider Internal Medicine Medical Oncology
DX: C25.0 Malignant neoplasm of head of pancreas (principal); J43.9 Emphysema, unspecified; J47.9 Bronchiectasis, uncomplicated; I70.0 Atherosclerosis of aorta; M47.9 Spondylosis, unspecified; Z79.899 Other long term (current) drug therapy
CPT/HCPCS: 36415; 74177; 80053; 85025; 86301; Q9967

== ENCOUNTER 2021-01-15 06:01 | Outpatient (CLI) | payer MEDICARE, OTHER, SELFPAY ==
--- NOTE | 2021-01-15 17:12 | ONC FU_ITS ---
Dr. Acosta Patient Follow-Up Note Patient: Misbah Springer Unit #: [id number]: 1945 Dicatated By: Evaristo Acosta M.D.Date of Visit:January 15, 2021 Onc Med Follow-up/Prog Note Chief Complaint: Pancreatic cancer. 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 By clinical evaluation, his disease appeared to be stage IIA (T3, N0, M0). His symptoms began in December 2017 with a sensation of fullness in the abdominal area. He then lost appetite and began losing weight. He also got very weak. His CT of the abdomen on 02/15/2018 showed pancreatic ductal dilatation and common bile duct dilatation, the latter measuring up to 22 mm, with abrupt termination secondary to a pancreatic head mass. The mass appeared to measure 3.5 x 3.3 cm. The exam was limited to due lack of IV contrast. He was referred to Dr. Cain Joseph at [facility] in [place] where he underwent ERCP with placement of biliary stent on 03/08/2018. The ERCP showed roughly 3 cm stricture of the distal bile duct with dilatation of the extrahepatic biliary tree proximal to that area. Upper EUS at that time showed a 3.6 x 3.7 hypoechoic mass at the level of the head of the pancreas with obstruction of the extrahepatic bile duct. The mass did not appear to involve the visualized portions of the celiac artery or SMA, but it was noted to abut the portal vein. A 12 x 9 mm hyperechoic nodule was noted in the left lobe of the liver. He underwent FNA of both the pancreatic head mass and the hepatic lesion. Pathology on the liver showed benign hepatocytes with no malignant cells identified. The pancreas showed atypical cells, but no definite malignancy. He had surgical oncology consultation with Dr. Trev Marquez at [facility] on 03/29/2018. CT abdomen/pelvis at that time showed mass in the head of the pancreas measuring approximately 3.8 cm. It was noted to infiltrate the surrounding fat in the pancreaticoduodenal groove. The mass was noted to abut the common hepatic artery along its inferior margin, but it did not appear to be encasing it. It was also noted to abut the inferior margin of the portal vein and the right lateral margin of the geno splenic confluence, but it did not appear to encase vascular structures. The superior mesenteric vein, splenic vein, celiac trunk, splenic artery, and superior mesenteric artery were noted to all be distant from the mass. His recommendation was to initiate chemotherapy following confirmation of tissue diagnosis and then reevaluate for possible surgical resection or chemoradiation. Repeat FNA of the pancreatic head mass on 04/05/2018 was positive for adenocarcinoma. I had seen him initially on 04/20/2018. After discussing options for neoadjuvant chemotherapy, he agreed to begin treatment with a modified FOLFIRINOX regimen. It was administered at a reduced dosage of irinotecan and with omission of the 5-FU bolus. He began cycle 1 of FOLFIRINOX on 04/28/2018. His baseline CA-19-9 level was 515 U/mL. He had no acute toxicity with his treatment. However, at day 10 he was admitted to the hospital after presenting to the emergency room with abdominal pain and fever. He was severely neutropenic, ANC 200. He was treated with Neupogen and broad-spectrum antibiotic coverage, with subsequent recovery. However, during that time he also developed pretty severe diarrhea as well as nausea and anorexia. His clinical course also was complicated by urinary retention. He was discharged home on 05/14/2018 with indwelling Kelly catheter. He was seen for a follow-up visit on 05/24/2018. He still had somewhat marginal performance status, but at that point he was improving. His CA-19-9 level had decreased significantly, to 227 U/mL. Given the fact that he did appear to be showing response to the chemotherapy, we did opt to continue his treatment, but with the regimen changed to modified FOLFOX. He developed some increase in neuropathy with the 1st cycle of FOLFOX, but he otherwise tolerated it well. He was able to continue with the 2nd cycle on 06/07/2018. At that point there was further decrease in the CA-19-9 level to 90 U/mL. He then continued with cycle 3 on 06/22/2018. The CA-19-9 had declined to 44 U/mL. He had followup with Dr. Marquez at [facility] on 07/05/2018. As he appeared to have a good response to the neoadjuvant chemotherapy he was offered the option of undergoing surgical resection. He then underwent pancreaticoduodenectomy on 08/18/2018 with complete resection of the tumor. There was no gross evidence of metastatic disease. Pathology showed just a single focus of residual adenocarcinoma measuring less than 0.1 cm, consistent with near-complete response. There was a residual fibrotic tumor bed extending for approximately 2.1 cm, and there was adjacent high-grade dysplasia. There was no lymphovascular or perineural invasion present. All margins were negative for malignancy. A total of 20 regional lymph nodes were negative for metastatic involvement. Final staging was ypT1a, ypN0. Given the excellent response to the neoadjuvant treatment he was recommended to have additional 4 to 8 cycles of postoperative adjuvant chemotherapy and possibly chemoradiation. He began cycle 1 of postoperative adjuvant chemotherapy with modified FOLFOX on 09/28/2018. He had mild neuropathy symptoms, but no other significant toxicity. He continued with his 2nd postoperative cycle on 10/12/2018, with cycle 3 on 10/26/2018, and with cycle 4 on 11/09/2018. At that point his neuropathy symptoms were getting noticeably worse, and it did opt to stop his chemotherapy after that treatment. He was then followed on observation/expectant management, as he opted not to take chemoradiation. His other medical illnesses include hypertension, dyslipidemia, hypothyroidism, obstructive sleep apnea, and benign prostatic hypertrophy. He also has a history of seizure. He is a nonsmoker. INTERIM HISTORY: At his follow-up visit in June 2020 his CA 19-9 level had increased to 34 U/mL. A surveillance CT abdomen/pelvis on 07/19/2020 showed residual density in the area of the head of the pancreas measuring 2.92 x 5.90 cm. There was air noted in the biliary system and he was noted to have 3 ventral hernias. There was no obvious metastatic disease. At his follow-up visit on 10/11/2020 he appeared stable clinically. His CA 19-9 level was back down to 29.9 U/mL. He continued observation/expectant management. Repeat CT abdomen/pelvis on 01/11/2021 showed a lobulated soft tissue mass at the region of the pancreatic head measuring 3.4 x 6.3 cm, progressed compared to the July 2020 study. There was no adenopathy or other obvious metastatic disease, but the appearance was suspicious for recurrent disease. He is seen for a follow-up visit. He has been feeling good generally. He works 1 or 2 days a week, and he has normal activity. ECOG score is 0. His appetite is not real good, but he eats 2 meals a day. His weight is down 6 to 7 pounds. He does not have fever or night sweats. He has no shortness of breath, cough, or chest pain. He has no GI complaints other than his stools tend to be loose. His urination is slowing down. He does not have any significant joint or bone pain. He does complain of having leg cramps occasionally. He does not complain of headache or dizziness. He has no focal neurologic symptoms. Medications: Levothyroxine Sodium 1 Tablet (of 125 mcg) Oral daily, Metoprolol Succinate ER 1.5 (50 mg) Tablet SR 24 HR Oral daily, Tamsulosin HCl 1 Tablet (of 0.4 mg) Capsule Oral at bedtime Allergies: Amoxicillin and Sulfa. Vital Signs: Performed on January 15, 2021 15:16 Height - 68.00 in Weight - 186.4 lbs (LOW) BSA - 1.98 sq.m BMI - 28.34 Temperature - 98.5 F Pulse - 52 /min (LOW) Respiration - 18 /min BP - 129/78 mm(hg) O2 Sat - 95 % (LOW) Pain - 0 Fatigue - 0 Physical Examination: Constitutional - He looks good generally, Eyes - Sclerae nonicteric. Conjunctivae clear, ENMT - No lesions noted in the oral cavity, Hematologic/Lymphatic - No cervical, clavicular, or axillary adenopathy, Respiratory - Lungs are clear with good air movement bilaterally, Cardiovascular - Heart rhythm is regular. There is no murmur, gallop, or rub noted, Abdomen - Soft. He has a ventral hernia. Liver and spleen are not enlarged. There is no abdominal mass or ascites noted and there is no inguinal adenopathy, Extremities - No edema, Neurologic - No focal neurologic deficits noted. Lab/Imaging: CBC shows hemoglobin 14.8 g, white blood cell count 6500, and platelet count 211,000. Comprehensive metabolic profile shows stable renal function with BUN 12 and creatinine 0.8 mg/dL. Alkaline phosphatase is mildly elevated at 157/130 IU/L, similar to prior studies. The bilirubin and the other liver enzymes are normal. The CA 19-9 level is stable at 28.24 U/mL. Problem List: 1. Adenocarcinoma of the head of the pancreas. By clinical evaluation, his disease appears to be stage IIA (T3, N0, M0). He underwent ERCP with placement of biliary stent and upper EUS 03/08/2018. The diagnosis was confirmed by repeat FNA of the pancreatic head mass on 04/07/2018. 2. Hypertension. 3. Hyperlipidemia. 4. Hypothyroidism. 5. Obstructive sleep apnea. 6. Benign prostatic hypertrophy. 7. He has a history of seizure. 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 By clinical evaluation, his disease appears to be stage IIA (T3, N0, M0). He underwent ERCP with placement of biliary stent and upper EUS 03/08/2018. The diagnosis was confirmed by repeat FNA of the pancreatic head mass on 04/07/2018. He had a very good response to neoadjuvant chemotherapy with FOLFIRINOX, though it did cause severe toxicities. He had further neoadjuvant chemotherapy with 3 cycles of modified FOLFOX and he then underwent pancreaticoduodenectomy on 08/18/2018. Pathology showed near complete response to the chemotherapy with one focus of residual tumor measuring less than 0.1 cm. The margins were free and there was no involvement in 20 lymph nodes. Pathologic staging was ypT1a, ypN0. He was then given postoperative adjuvant chemotherapy with an additional 4 cycles of modified FOLFOX, completed in October 2018. He was then followed on observation/expectant management, as he declined chemoradiation. As of his follow-up visit in June 2020 there was an increase in his CA 19-9 level up to 34 U/mL. His surveillance CT abdomen/pelvis on 07/19/2020 showed residual density in the area of the head of the pancreas measuring 2.92 x 5.90 cm. There was air noted in the biliary system, and he was noted to have 3 ventral hernias. There was no obvious metastatic disease. As of his follow-up visit in September 2020 his CA 19-9 level was back down to 29.91 U/mL. He continued observation/expectant management. Since then his clinical status has remained stable and his CA 19-9 level also has remained stable. However, his repeat CT abdomen/pelvis shows further increase in the lobulated mass in the area of the pancreatic head, now measuring 3.4 x 6.3 cm. The appearance is suspicious for recurrent neoplasm. Given those findings, he will be scheduled now for restaging PET/CT. He will then have further evaluation as indicated. Signed By: Evaristo Acosta M.D. <<Signature on File>>
== END 2021-01-15 06:02 | disposition home or self-care (01) ==
PROVIDERS: PCP Internal Medicine; Visit Provider Internal Medicine Medical Oncology
DX: Z08 Encounter for follow-up examination after completed treatment for malignant neoplasm (principal); Z85.07 Personal history of malignant neoplasm of pancreas; I10 Essential (primary) hypertension; E78.5 Hyperlipidemia, unspecified; E03.9 Hypothyroidism, unspecified; G47.33 Obstructive sleep apnea (adult) (pediatric); N40.0 Benign prostatic hyperplasia without lower urinary tract symptoms; G40.909 Epilepsy, unspecified, not intractable, without status epilepticus; Z79.899 Other long term (current) drug therapy
CPT/HCPCS: 99214

== ENCOUNTER 2021-02-14 11:15 | Outpatient (CLI) | payer MEDICARE, OTHER, SELFPAY ==
[2021-02-14 13:50] LABS: Cancer Antigen 19 9 30.08 U/mL (0-35)
--- NOTE | 2021-02-17 08:40 | ONC FU_ITS ---
Dr. Acosta Patient Follow-Up Note Patient: Misbah Springer Unit #: [id number]: 1945 Dicatated By: Evaristo Acosta M.D.Date of Visit:Feb 14, 2021 Onc Med Follow-up/Prog Note Chief Complaint: Pancreatic cancer. 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 By clinical evaluation, his disease appeared to be stage IIA (T3, N0, M0). His symptoms began in December 2017 with a sensation of fullness in the abdominal area. He then lost appetite and began losing weight. He also got very weak. His CT of the abdomen on 02/15/2018 showed pancreatic ductal dilatation and common bile duct dilatation, the latter measuring up to 22 mm, with abrupt termination secondary to a pancreatic head mass. The mass appeared to measure 3.5 x 3.3 cm. The exam was limited to due lack of IV contrast. He was referred to Dr. Cain Joseph at [facility] in [place] where he underwent ERCP with placement of biliary stent on 03/08/2018. The ERCP showed roughly 3 cm stricture of the distal bile duct with dilatation of the extrahepatic biliary tree proximal to that area. Upper EUS at that time showed a 3.6 x 3.7 hypoechoic mass at the level of the head of the pancreas with obstruction of the extrahepatic bile duct. The mass did not appear to involve the visualized portions of the celiac artery or SMA, but it was noted to abut the portal vein. A 12 x 9 mm hyperechoic nodule was noted in the left lobe of the liver. He underwent FNA of both the pancreatic head mass and the hepatic lesion. Pathology on the liver showed benign hepatocytes with no malignant cells identified. The pancreas showed atypical cells, but no definite malignancy. He had surgical oncology consultation with Dr. Trev Marquez at [facility] on 03/29/2018. CT abdomen/pelvis at that time showed mass in the head of the pancreas measuring approximately 3.8 cm. It was noted to infiltrate the surrounding fat in the pancreaticoduodenal groove. The mass was noted to abut the common hepatic artery along its inferior margin, but it did not appear to be encasing it. It was also noted to abut the inferior margin of the portal vein and the right lateral margin of the geno splenic confluence, but it did not appear to encase vascular structures. The superior mesenteric vein, splenic vein, celiac trunk, splenic artery, and superior mesenteric artery were noted to all be distant from the mass. His recommendation was to initiate chemotherapy following confirmation of tissue diagnosis and then reevaluate for possible surgical resection or chemoradiation. Repeat FNA of the pancreatic head mass on 04/05/2018 was positive for adenocarcinoma. I had seen him initially on 04/20/2018. After discussing options for neoadjuvant chemotherapy, he agreed to begin treatment with a modified FOLFIRINOX regimen. It was administered at a reduced dosage of irinotecan and with omission of the 5-FU bolus. He began cycle 1 of FOLFIRINOX on 04/28/2018. His baseline CA-19-9 level was 515 U/mL. He had no acute toxicity with his treatment. However, at day 10 he was admitted to the hospital after presenting to the emergency room with abdominal pain and fever. He was severely neutropenic, ANC 200. He was treated with Neupogen and broad-spectrum antibiotic coverage, with subsequent recovery. However, during that time he also developed pretty severe diarrhea as well as nausea and anorexia. His clinical course also was complicated by urinary retention. He was discharged home on 05/14/2018 with indwelling Kelly catheter. He was seen for a follow-up visit on 05/24/2018. He still had somewhat marginal performance status, but at that point he was improving. His CA-19-9 level had decreased significantly, to 227 U/mL. Given the fact that he did appear to be showing response to the chemotherapy, we did opt to continue his treatment, but with the regimen changed to modified FOLFOX. He developed some increase in neuropathy with the 1st cycle of FOLFOX, but he otherwise tolerated it well. He was able to continue with the 2nd cycle on 06/07/2018. At that point there was further decrease in the CA-19-9 level to 90 U/mL. He then continued with cycle 3 on 06/22/2018. The CA-19-9 had declined to 44 U/mL. He had followup with Dr. Marquez at [facility] on 07/05/2018. As he appeared to have a good response to the neoadjuvant chemotherapy he was offered the option of undergoing surgical resection. He then underwent pancreaticoduodenectomy on 08/18/2018 with complete resection of the tumor. There was no gross evidence of metastatic disease. Pathology showed just a single focus of residual adenocarcinoma measuring less than 0.1 cm, consistent with near-complete response. There was a residual fibrotic tumor bed extending for approximately 2.1 cm, and there was adjacent high-grade dysplasia. There was no lymphovascular or perineural invasion present. All margins were negative for malignancy. A total of 20 regional lymph nodes were negative for metastatic involvement. Final staging was ypT1a, ypN0. Given the excellent response to the neoadjuvant treatment he was recommended to have additional 4 to 8 cycles of postoperative adjuvant chemotherapy and possibly chemoradiation. He began cycle 1 of postoperative adjuvant chemotherapy with modified FOLFOX on 09/28/2018. He had mild neuropathy symptoms, but no other significant toxicity. He continued with his 2nd postoperative cycle on 10/12/2018, with cycle 3 on 10/26/2018, and with cycle 4 on 11/09/2018. At that point his neuropathy symptoms were getting noticeably worse, and it did opt to stop his chemotherapy after that treatment. He was then followed on observation/expectant management, as he opted not to take chemoradiation. His other medical illnesses include hypertension, dyslipidemia, hypothyroidism, obstructive sleep apnea, and benign prostatic hypertrophy. He also has a history of seizure. He is a nonsmoker. INTERIM HISTORY: At his follow-up visit in June 2020 his CA 19-9 level had increased to 34 U/mL. A surveillance CT abdomen/pelvis on 07/19/2020 showed residual density in the area of the head of the pancreas measuring 2.92 x 5.90 cm. There was air noted in the biliary system and he was noted to have 3 ventral hernias. There was no obvious metastatic disease. At his follow-up visit on 10/11/2020 he appeared stable clinically. His CA 19-9 level was back down to 29.9 U/mL. CT abdomen/pelvis on 01/11/2021 showed a lobulated soft tissue mass at the region of the pancreatic head measuring 3.4 x 6.3 cm, progressed compared to the July 2020 study. There was no adenopathy or other obvious metastatic disease, but the appearance was suspicious for recurrent disease. He continued expectant management. His repeat CT abdomen/pelvis on 01/11/2021 showed increasing soft tissue mass at the pancreatic head compared to the 07/19/2020 study. Further evaluation with PET/CT on 01/19/2021 showed and FDG avid soft tissue mass in the precaval region of the upper abdomen measuring 2.5 x 2.0 cm, SUV 6.3, consistent with recurrent malingancy. The pancreatic head was noted to be enlarged with diffuse increased uptake, also suspicious for malignancy. Also noted was internval development of left upper quadrant omental soft tissue implants, SUV 4,9 and multiple FDG positive bilateral mediastinal lymph nodes, likely malignant. A lytic lesion with sclerotic rim in the T9 vertebral body had SUV 4.6, consistent with osseous metastatic disease and a similar lesion was noted in the lateral T2 vertebral body. He is seen for a follow-up visit. He says he feels fine. His energy is okay. He is doing light work. ECOG score is 1. He does not have much appetite, but his weight is stable. He had one episode of fever up to 102 degrees with associated chills, but by the next day he was feeling okay. He has not had sore throat or difficulty swallowing. He has an occasional hacking cough, but not bad. He does not complain of shortness of breath or chest pain. He has had a little pain in his right lower quadrant area, possibly associated with his hernia belt. He also complains that his stomach growls. He has no other GI complaints. Bladder function remains adequate, though he says his urination is slower than normal. He has no significant joint or bone pain. In particular, he has not been having any back pain. He does not complain of headache or dizziness, and he has no focal neurologic symptoms. Medications: Levothyroxine Sodium 1 Tablet (of 125 mcg) Oral daily, Metoprolol Succinate ER 1.5 (50 mg) Tablet SR 24 HR Oral daily, Tamsulosin HCl 1 Tablet (of 0.4 mg) Capsule Oral at bedtime Allergies: Amoxicillin and Sulfa. Vital Signs: Performed on Feb 14, 2021 11:44 Height - 68.00 in Weight - 185.2 lbs (LOW) BSA - 1.98 sq.m BMI - 28.16 Temperature - 98.2 F (LOW) Pulse - 53 /min (LOW) Respiration - 18 /min BP - 130/79 mm(hg) O2 Sat - 94 % (LOW) Pain - 0 Fatigue - 0 Physical Examination: Constitutional - He looks good generally, Eyes - Sclerae nonicteric. Conjunctivae clear, ENMT - No lesions noted in the oral cavity, Hematologic/Lymphatic - No cervical, clavicular, or axillary adenopathy, Respiratory - Lungs are clear with good air movement bilaterally, Cardiovascular - Heart rhythm is regular. There is no murmur, gallop, or rub noted, Abdomen - Moderately distended. There is a ventral hernia. Liver and spleen are not enlarged. There is no abdominal mass or ascites noted and there is no inguinal adenopathy, Extremities - No edema, Neurologic - No focal neurologic deficits noted. Lab/Imaging: Test performed on Feb 14, 2021 12:25 CA 19-9 30.08 U/mL Test performed on Jan 11, 2021 11:00 Sodium 135 mmol/L Potassium 4.4 mmol/L Chloride 103 mmol/L CO2 26 mmol/L Anion Gap 10.4 BUN 12 mg/dL Creatinine 0.8 mg/dL Cr Clearance (Est) 94.2900 mL/min Glucose 101 mg/dL Osmolality - Calculated 280 mOsm/kg Calcium 8.3 mg/dL Protein, Total 6.8 g/dL Albumin 3.8 g/dL Globulin 3.0 g/dL Bilirubin, Total 0.6 mg/dL ALT (SGPT) 15 U/L AST (SGOT) 21 U/L Alkaline Phosphatase 157 IU/L WBC 6.5 10 3/uL RBC 4.94 10 6/uL HGB 14.8 g/dL HCT 44.9 % MCV 90.9 fL MCH 30.0 pg MCHC 33.0 g/dL RDW 13.4 % Platelet Count 211 10 3/cmm MPV 9.9 fL Neutrophils 3.92 10 3/uL Lymphocytes 1.9 10 3/uL Monocytes 0.4 10 3/uL Eosinophils 0.2 10 3/uL Basophils 0.0 10 3/uL Neutrophil % 60.0 % Lymphocyte % 29.2 % Monocyte % 6.7 % Eosinophil % 3.2 % Basophils % 0.6 % NRBC % 0 % Problem List: 1. Adenocarcinoma of the head of the pancreas. By clinical evaluation, his disease appears to be stage IIA (T3, N0, M0). He underwent ERCP with placement of biliary stent and upper EUS 03/08/2018. The diagnosis was confirmed by repeat FNA of the pancreatic head mass on 04/07/2018. 2. Hypertension. 3. Hyperlipidemia. 4. Hypothyroidism. 5. Obstructive sleep apnea. 6. Benign prostatic hypertrophy. 7. He has a history of seizure. 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 By clinical evaluation, his disease appears to be stage IIA (T3, N0, M0). He underwent ERCP with placement of biliary stent and upper EUS 03/08/2018. The diagnosis was confirmed by repeat FNA of the pancreatic head mass on 04/07/2018. He had a very good response to neoadjuvant chemotherapy with FOLFIRINOX, though it did cause severe toxicities. He had further neoadjuvant chemotherapy with 3 cycles of modified FOLFOX and he then underwent pancreaticoduodenectomy on 08/18/2018. Pathology showed near complete response to the chemotherapy with one focus of residual tumor measuring less than 0.1 cm. The margins were free and there was no involvement in 20 lymph nodes. Pathologic staging was ypT1a, ypN0. He was then given postoperative adjuvant chemotherapy with an additional 4 cycles of modified FOLFOX, completed in October 2018. He was then followed on observation/expectant management, as he declined chemoradiation. As of his follow-up visit in June 2020 there was an increase in his CA 19-9 level up to 34 U/mL. His surveillance CT abdomen/pelvis on 07/19/2020 showed residual density in the area of the head of the pancreas measuring 2.92 x 5.90 cm. There was air noted in the biliary system, and he was noted to have 3 ventral hernias. There was no obvious metastatic disease. As of his follow-up visit in September 2020 his CA 19-9 level was back down to 29.91 U/mL. He continued observation/expectant management. His repeat CT abdomen/pelvis on showed further increase in the lobulated mass in the area of the pancreatic head measuring 3.4 x 6.3 cm. The appearance was suspicious for recurrent neoplasm. With those findings had had further evaluation with PET/CT on 01/19/2021 and that study showed FDG uptake in upper abdominal precaval mass, in the area of the pancreatic head, and bilateral mediastinal lymph nodes and in left upper quadrant omental soft tissue implants consistent with recurrence/metastatic disease. Also noted were suspected metastatic lesions in the T2 and T9 vertebral bodies. Despite those findings, there has still been no increase in his tumor marker, he appears stable clinically. When the PET/CT report became available, I had requested next generation sequencing to be done on his biopsy, but it has just now been reported that there is insufficient material available for that study. As such, a next generation sequencing will now be requested by liquid biopsy. I will defer recommendations for further treatment pending outcome of that study. Signed By: Evaristo Acosta M.D. <<Signature on File>>
== END 2021-02-14 11:16 | disposition home or self-care (01) ==
LOC: ONCMED 11:17
PROVIDERS: PCP Internal Medicine; Visit Provider Internal Medicine Medical Oncology
DX: Z08 Encounter for follow-up examination after completed treatment for malignant neoplasm (principal); Z85.07 Personal history of malignant neoplasm of pancreas; Z92.21 Personal history of antineoplastic chemotherapy; I10 Essential (primary) hypertension; E78.5 Hyperlipidemia, unspecified; E03.9 Hypothyroidism, unspecified; G47.33 Obstructive sleep apnea (adult) (pediatric); N40.0 Benign prostatic hyperplasia without lower urinary tract symptoms
CPT/HCPCS: 36415; 86301; 99214

== ENCOUNTER 2021-03-28 06:46 | Outpatient (CLI) | payer MEDICARE, OTHER, SELFPAY ==
[2021-03-28 07:10] VITALS: BMI 27.3
--- NOTE | 2021-03-28 07:11 | ECG_ITS ---
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 Interpretive Statements NAME OF STUDY: EXERCISE SESTAMIBI STRESS TEST INDICATION: Dyspnea on exertion, HTN Baseline blood pressure of 136/98 mm Hg, heart rate of 79 beats per minute and oxygen saturation of 96%. EKG showed normal sinus rhythm, normal axis with nonspecific ST depression. The patient exercised for 5 minutes 16 seconds on a standard Sahil protocol. Patient attained a maximum heart rate of 136 beats per minute(93% of the maximum predicted heart rate) with a blood pressure at the peak exercise of 187/92 mm Hg and oxygen saturation of 88%. The EKG at the peak exercise revealed sinus tachycardia with no significant ST-T wave changes. Patient did not have any chest pain or any significant arrhythmis with the exercise During the recovery phase, there were no new changes. Blood pressure at the end of the recovery phase was 135/88 mm Hg with a heart rate of 81 beats per minute and oxygen saturation 97%. CONCLUSION: 1. Normal EKG response to treadmill exercise. 2. No exercise-induced chest pain or cardiac arrhythmia 3. Good exercise tolerance, attained a maximum of 7 METs. Maximum VO2 of 24.5 mL/kg/min. 4. Baseline normal blood pressure with normal response to exercise. 5. Perfusion scan will be documented separately. Electronically Signed On 03-29-2021 12:11:43 CDT by Nicole Oconnell M.D. [id number]
--- NOTE | 2021-03-28 07:11 | NMCV_ITS ---
NM parag perf SPECT r/s* [id number] Misbah Springer Age: 75 Gender: M : 1945 Exam Date: 03/28/2021 07:58 Ordering Phys: Nicole Oconnell MD ([email or web address]) Technologist: TERESA Hu Exam Location: [facility] Indications: HYPERTENSION, CHEST PAIN STRESS TEST Please see separate stress test report in [facility] for full findings IMAGE PROTOCOL Rest/Stress 1 Exercise Day Radiopharmaceutical Dose (mCi) Administration Site Administered by Rest: Tc-99m 10.7 IV TERESA Schaefer Sestamibi Stress:Tc-99m 31.2 IV TERESA Hu Seskathymibenjamin Rest: 28-Mar-2021 60 Discovery 630 Stress: 28-Mar-2021 15 Discovery 630 Radiopharmaceutical was injected at 90 % maximum heart rate. Images obtained in supine and prone position. SPECT RESULTS Technical Quality: Excellent Raw Data Analysis: Normal Image Corrections: No attenuation or motion correction applied Summed Stress Score: 8 Summed Rest Score: 1 Summed Difference Score: 7 PERFUSION FINDINGS Medium sized reversible perfusion abnormality of mild to moderate severity of basal to mid inferolateral and basal to mid anterolateral kaplan. There is improved tracer uptake in prone stress images. FUNCTIONAL RESULTS (calculated via Gated SPECT) Stress Image LV EF (%): 73 Stress EDV (mL):63 TID: 0.91 Stress ESV (mL):17 FUNCTIONAL FINDINGS: The left ventricle is normal in size. Transient Ischemia Dilatation of 0.91. There is normal left ventricular systolic function. The left ventricular ejection fraction is normal with a value of 73%. There is normal left ventricular wall thickening. Normal end diastolic and end systolic volumes. IMPRESSIONS 1. Medium sized reversible perfusion abnormality of mild to moderate severity of basal to mid inferolateral and basal to mid anterolateral kaplan. 2. This may represent a small area of ischemia in circumflex artery territory. However, attenuation artifact may not be completely ruled out. 3. Overall left ventricular systolic function is normal without regional wall motion abnormalities. 4. The left ventricular ejection fraction is normal with a value of 73%. 5. EKG portion of the study will be reported separately. 6. No prior similar studies to compare. Nicole Oconnell MD (Electronically Signed) Final Date: 29 March 2021 13:04 S
[2021-03-28 09:53] VITALS: BP 165/74; PULSE 63
== END 2021-03-28 06:47 | disposition home or self-care (01) ==
PROVIDERS: PCP Internal Medicine; Visit Provider Internal Medicine Cardiovascular Disease
DX: R06.09 Other forms of dyspnea (principal); I10 Essential (primary) hypertension; R07.9 Chest pain, unspecified
CPT/HCPCS: 78452; 93017; A9500

== ENCOUNTER → 2021-04-09 08:38 | Outpatient (BNVA) | payer MEDICARE, OTHER, SELFPAY | PROVIDERS: PCP Internal Medicine; Visit Provider Surgery | DX: Z20.822 Contact with and (suspected) exposure to COVID-19 (principal); Z11.52 Encounter for screening for COVID-19 | CPT/HCPCS: 87635 ==

== ENCOUNTER 2021-04-15 07:01 | Day surgery (SDC) | payer MEDICARE, OTHER, SELFPAY ==
[2021-04-12 10:55] VITALS: BMI 26.6
--- NOTE | 2021-04-12 11:23 | ECG_ITS ---
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
--- NOTE | 2021-04-12 11:44 | ANES.PREANE2 ---
Pre-Anesthetic Assessment Pre-Anesthetic Assessment: Height/Weight: Height 1.73 m Weight 79.379 kg Preop Diagnosis: Recurrent pancreatic cancer Proposed Procedure: Operation Date: 04/15/21 08:45 Proposed Procedures p Portacath Placement 59426 c25.9(Not Applicable) - Franky Pleitez MD Was Beta Swetha taken within 24 hours: Yes Was Clonidine taken within 24 hours: N/A Social: Social History: No alcohol and No tobacco Exam: Pre-Anes Outpt Exam: alert, oriented x 3, clear to auscultation bilaterally and regular rate & rhythm Airway: Submandibular: WNL Cervical ROM: WNL MP: 2 Dentition: Partials Pulmonary: Pulmonary: Sleep apnea and SOB CV/HEM: CV/HEM: CHF, HTN and PVD Comments: Recent stress test unremarkable, good fitness GI: Comments: Pancreatic CA (recurrent) Metabolic: Metabolic: Hyperlipidemia Anesthetic Plan: ASA status: 3 Anesthesia: MAC Risk of > 500 ml blood loss (7ml/kg in children): No PFSH Anesthesia PFSH: Medical History Ascending aorta enlargement Carotid stenosis, bilateral CHF (congestive heart failure) CVA (cerebral vascular accident) Dyslipidemia HTN (hypertension) Hypothyroidism Local recurrence of pancreatic cancer MELL (obstructive sleep apnea) Pancreatic cancer Surgical History History of colonoscopy 10+yrs History of pancreatic surgery 08/2018 History of removal of Port-a-Cath 2019 S/P cataract extraction Family History Family/Other No problems noted. Brother Cancer LUNG Father Cancer LUNG Social History Household members: spouse Marital status: Data Anesthesia Cardiac Studies: No Data to Display
[2021-04-15] VITALS (8 sets, daily range): BP systolic 95–135; BP diastolic 60–80; PULSE 48–62; RESP 12–18; TEMP 36.2–36.4; O2SAT 93–98
--- NOTE | 2021-04-15 | SCC_ITS ---
Procedure Done: Placement of PowerPort in the left subclavian vein Fluoroscopic guidance and interpretation for placement of catheter 32.4 seconds of fluoroscopic guidance, for a cumulative dose of 5.25 mGy, was provided to Dr. Pleitez by the radiology department. C-arm images of the chest were saved for the patient's permanent record. [facility]
[2021-04-15] MEDS: sodium chloride 0.9% 1,000 ML 30 ML IV (07:45)
--- NOTE | 2021-04-15 07:58 | P.HP_ITS ---
Same Day Surgery H&P Indication for Procedure/HPI DATE OF PROCEDURE: April 15, 2021 CHIEF COMPLAINT/INDICATIONFOR SURGICAL PROCEDURE: recurrent pancreatic ca PREOP DIAGNOSIS: Recurrent pancreatic cancer PLANNED PROCEDRUE: Operation Date: 04/15/21 08:45 Proposed Procedures p Portacath Placement 40802 c25.9(Not Applicable) - Franky Pleitez MD Medications/Allergies* Home Medications Medication Instructions Recorded Confirmed Type tamsulosin 0.4 mg PO DAILY 09/16/19 04/15/21 History levothyroxine 88 mcg tablet 88 mcg PO DAILY 03/19/21 04/15/21 History losartan 25 mg tablet 25 mg PO DAILY 03/19/21 04/15/21 History metoprolol succinate 50 mg 50 mg PO DAILY 03/19/21 04/15/21 History tablet,extended release 24 hr aspirin [Aspir-81] 81 mg PO DAILY 04/12/21 04/15/21 History Allergies/Adverse Reactions Allergy/AdvReac Type Severity Reaction Status Date / Time amoxicillin Allergy ALGY-Rash Verified 03/28/21 07:33 Sulfa (Sulfonamide Allergy Unknown Verified 03/28/21 07:33 Antibiotics) Current Medications: Generic Name Dose Route Start Last Admin Trade Name Freq PRN Reason Stop Dose Admin Sodium Chloride 1,000 mls @ 30 mls/hr 04/15/21 07:15 04/15/21 07:45 Sodium Chloride 0.9% IV 04/16/21 07:14 30 mls/hr .Q24H JAMES Administration Pertinent History/Comorbid Conditions* Medical History (Updated 03/27/21 @ 15:59 by Franky Pleitez MD) Ascending aorta enlargement Carotid stenosis, bilateral CHF (congestive heart failure) CVA (cerebral vascular accident) Dyslipidemia HTN (hypertension) Hypothyroidism Local recurrence of pancreatic cancer MELL (obstructive sleep apnea) Pancreatic cancer Surgical History (Updated 03/25/21 @ 10:18 by Franky Pleitez MD) History of colonoscopy 10+yrs History of pancreatic surgery 08/2018 History of removal of Port-a-Cath 2019 S/P cataract extraction Family History (Updated 03/13/20 @ 09:43 by Marti Smith RN) Cancer Brother LUNG Father LUNG Social History Household members: spouse Marital status: Pertinent Exam Findings alert, oriented x 3 and regular rate & rhythm Recommendations Surgery/Procedure today Coding Level of Care Code Acute Heat Treat Operator for Chg Tawanna
--- NOTE | 2021-04-15 08:14 | P.ANESUD_ITS ---
Pre-Anesthetic Update Pre-Anesthetic Assessment: Date of Surgery/Procedure: 04/15/21 Preop Queta gnosis: Recurrent pancreatic cancer Proposed Procedure: Operation Date: 04/15/21 08:45 Proposed Procedures p Portacath Placement 82203 c25.9(Not Applicable) - Franky Pleitez MD Any changes to Pre-Anesthetic Assessment?: No Last Intake: Intake Last Liquid Date 04/14/21 Last Liquid Time 20:00 Last Solid Date 04/14/21 Last Solid Time 20:00 Vitals: Pulse Rate 62 04/15/21 07:21 Pulse Rhythm 04/15/21 07:21 Pulse Strength 3+ Normal 04/15/21 07:21 Respiratory Rate 18 04/15/21 07:21 Blood Pressure 135/80 04/15/21 07:21 Blood Pressure Maci n 98 04/15/21 07:21 Pulse Oximetry 98 04/15/21 07:21 Oxygen Delivery Me thod 04/15/21 07:21 Exam: Pre-Anes Outpt Exam: alert, oriented x 3, clear to auscultation bilaterally and regular rate & rhythm Cardiac Studies: No Data to Display
--- NOTE | 2021-04-15 08:14 | SC_ITS ---
WS: [id number] C-arm fluoroscopy for left Port-A-Cath insertion, 04/15/2021 Clinical Data: PORTACATH Comparison: PA and lateral chest, 01/18/2019. Findings: Left Port-A-Cath has been inserted. The tip ends in the superior vena cava. SC/C-arm FL for CVA [id number] Impression: Left Port-A-Cath insertion.
[2021-04-15] MEDS: lidocaine 1% INJ 20 mL SUBCUT (08:26)
[2021-04-15] MEDS: heparin, porcine 1,000 unit/mL INJ 10 mL 10000 UNIT IRRIGATION (08:28)
[2021-04-15] MEDS: vancomycin 1,000 MG in sodium chloride 0.9% 250 ML 250 MG IV (10:54)
--- NOTE | 2021-04-15 11:42 | SUR.PHASEI ---
patient into pacu at 1134. simple mask in place at 6l O2 and sats at 95%. patient is asleep, resting comfortably. dressing in place to left chest, dermabond x2 sites. no drainage from sites.
--- NOTE | 2021-04-15 11:48 | SUR.PHASEI ---
1148: patient awake and talking. placed on room air with sats at 96%. pt states no pain.
--- NOTE | 2021-04-15 11:50 | PM.OP ---
Operative Report Date of procedure: April 15, 2021 Pre-op Diagnosis: Recurrent pancreatic cancer Post-op diagnosis: same Procedure Done: Placement of PowerPort in the left subclavian vein Fluoroscopic guidance and interpretation for placement of catheter Surgeon: Franky Pleitez Anesthesia: MAC Condition: stable Disposition: PACU Procedure: The patient was taken to the Operating Room and the chest and neck bilaterally were prepped and draped in a sterile manner after the antibiotic had been administered and shoulder rolls had been placed. A total of 10 mL of 1% lidocaine with 0.5% Marcaine was infiltrated under the clavicle on the left side at the site of the planned entry into the subclavian vein. An introducer needle was then used to access the subclavian vein under the clavicle and after withdrawing blood syringe was removed and a guidewire passed under fluoroscopy into the superior vena cava. The site of the planned port was then marked on the chest and a 15 blade was used to make a 3 cm skin incision this was extended into the subcutaneous tissue using electrocautery and a subcutaneous pocket over the pectoralis fascia was created 2-0 Vicryl suture was used to suture the port to the pectoral fascia in the pocket on 3 sides. The catheter, after having been flushed with hep saline, was attached to the tunneler and a tunnel created between the port site and the subclavian vein entry site. Under fluoroscopy the dilator sheath was passed over the guidewire into the proximal superior vena cava. The inner dilator was removed and the sheath left behind and~ the catheter was introduced through the peel-away sheath with the tip in the superior vena cava. The peel-away sheath was removed. The proximal end of the catheter was cut to the right size and was attached to the port. Using a Neal needle the port was accessed, it withdrew blood easily and flushed easily. A final 5cc of heparin was used to flush the PowerPort. The subcutaneous tissue was approximated using interrupted 3-0 Vicryl sutures and the skin at the introducer site and the port site was closed using subcuticular running 4-0 Monocryl sutures. Surgical glue was applied and the patient was stable throughout the procedure. Fluoroscopic guidance and interpretation was performed for introduction of the guidewire in the left subclavian vein, passage of dilator and placement of catheter tip in the distal superior vena cava.
--- NOTE | 2021-04-15 11:53 | SUR.PHASEI ---
1153: patient awake and alert, ready to be transported back to ops.
--- NOTE | 2021-04-15 12:12 | SUR.PHASEI ---
1156: patient transferred to ops. awake and alert, dressing in place. on room air sats at 94%. present in room
--- NOTE | 2021-04-15 19:31 | ANE.PACU2 ---
Inpatient post-anesthesia follow up: Airway intact: Yes Vital signs: Temperature 97.3 F Pulse Rate 48 Respiratory Rate 16 Blood Pressure 111/72 Pulse Oximetry 95 Oxygen Delivery Me thod Room Air Oxygen Flow Rate 6 Fraction of Inspir ed Oxygen Hydration adequate: Yes Nausea and vomiting: No Pain level: 2 Mental status: Baseline
== END 2021-04-15 12:53 | disposition home or self-care (01) ==
PROVIDERS: PCP Internal Medicine; Visit Provider Surgery
PROC: (CPT 36561; principal; 2021-04-15 08:45)
DX: C25.9 Malignant neoplasm of pancreas, unspecified (principal); I11.0 Hypertensive heart disease with heart failure; I50.9 Heart failure, unspecified; E78.5 Hyperlipidemia, unspecified; Z86.73 Personal history of transient ischemic attack (TIA), and cerebral infarction without residual deficits; I10 Essential (primary) hypertension; E03.9 Hypothyroidism, unspecified; G47.33 Obstructive sleep apnea (adult) (pediatric)
CPT/HCPCS: 36561; 77001; 93005; C1788; J1644; J2370; J2704; J3010; J3370; J3490; J7030; J7050

== ENCOUNTER 2021-05-08 12:35 | Outpatient (CLI) | payer MEDICARE, OTHER, SELFPAY ==
--- NOTE | 2021-05-08 12:45 | USCV_ITS ---
Misbah Springer Age: 75 Gender: M : 1945 Exam Date: 05/08/2021 13:09 Ordering Phys: Nicole Oconnell MD ([email or web address]) Technologist: Exam Location: [facility] [place] Indication: SYNCOPE Risk Factors: None Previous Vascular Surgery: Right Brachial BP: / Left Brachial BP: / Right Left Velocity (cm/s) Spectral Plaque Velocity (cm/s) Spectral Plaque Syst/Diast Broadening Syst/Diast Broadening 54.60/ 18.50 Prox CCA 53.20 / 18.20 63.90/ 17.60 Mid CCA 63.00 / 18.90 57.10/ 18.50 Hetro Distal CCA 59.50 / 16.10 Homo 36.10/ 11.50 Hetro Prox ICA 40.90 / 11.70 Hetro 36.60/ 8.50 Hetro Mid ICA 47.10 / 17.10 Hetro 36.60/ 13.50 Distal ICA 62.40 / 20.10 48.70 ECA 39.40 0.57 ICA/CCA 0.99 Antegrade Vertebral Antegrade 36.10/ 13.50 cm/s 30.00/ 9.60 cm/s Bi Subclavian Bi 34.60 58.00 FINDINGS INCIDENTAL FINDING OF LT JUGULAR THROMBUS CALLED DR GONZALEZ CONCLUSIONS Left internal jugular thrombus Right ICA stenosis <50%. Moderate atheromatous plaque right carotid bulb/ICA. Left ICA stenosis <50%. Moderate atheromatous plaque left carotid bulb/ICA. Normal antegrade Doppler flow noted in the right vertebral artery. Normal antegrade Doppler flow noted in the right vertebral artery. Bacilio Ortiz MD (Electronically Signed) Final Date: 08 May 2021 17:51 S
--- NOTE | 2021-05-08 13:30 | USCV_ITS ---
Misbah Springer Age: 75 Gender: M : 1945 Exam Date: 05/08/2021 12:54 Ordering Phys: Nicole Oconnell MD ([email or web address]) Technologist: Exam Location: [facility] [place] Indication: HIGH RISK MEDS BP: / HR: 64 Rhythm: Sinus Technical Quality: Adequate MEASUREMENTS (Male / Female) Normal Values 2D ECHO LV Diastolic Diameter PLAX 3.7 cm 4.2 - 5.9 / 3.9 - 5.3 cm LV Systolic Diameter PLAX 2.3 cm IVS Diastolic Thickness 0.8 cm 0.6 - 1.0 / 0.6 - 0.9 cm IVS Systolic Thickness 1.1 cm LVPW Diastolic Thickness 1.0 cm 0.6 - 1.0 / 0.6 - 0.9 cm LVPW Systolic Thickness 1.2 cm LVOT Diameter 2.0 cm LV Ejection Fraction 2D Teich 69.4 % LV Ejection Fraction MOD 2C 67.1 % LV Ejection Fraction 2C AL 67.0 % LA Diameter 3.7 cm LA Width 2.9 cm LA Height 3.7 cm RA Width 3.2 cm RA Height 3.7 cm Aorta at Sinotubular Diameter 2.9 cm DOPPLER AV Peak Velocity 97.0 cm/s LVOT Peak Velocity 87.0 cm/s AV Area Cont Eq vti 3.1 cm squared AV Area Cont Eq pk 2.9 cm squared MV Area PHT 4.9 cm squared Mitral E to A Ratio 0.6 MV E' Velocity 26.0 cm/s Mitral E to MV E' Ratio 7.0 Mitral E to LV E' Lateral Ratio 5.4 Mitral E to LV E' Septal Ratio 10.0 TR Peak Velocity 225.0 cm/s TR Peak Gradient 20.3 mmHg TV Peak E Velocity 47.0 cm/s Right Atrial Pressure 3.0 mmHg Pulmonary Artery Systolic Pressu 23.3 mmHg FINDINGS Left Ventricle Normal left ventricular size, systolic function and wall thickness, with no regional wall motion abnormalities. Left ventricular ejection fraction is estimated at 60-65%. Grade I diastolic dysfunction (abnormal relaxation filling pattern), normal to mildly elevated filling pressures. Right Ventricle Normal right ventricular size and low normal systolic function. Right ventricular systolic pressure 23 mmHg. Right Atrium Normal right atrial size. Left Atrium Normal left atrial size. Mitral Valve Mildly thickened mitral valve. No mitral valve stenosis. Trace mitral valve regurgitation. Aortic Valve Aortic valve not well visualized. No aortic valve stenosis. No aortic valve regurgitation. Tricuspid Valve Structurally normal tricuspid valve. Trace to mild tricuspid valve regurgitation. Pulmonic Valve Structurally normal pulmonic valve. No pulmonary valve stenosis. No significant pulmonary valve regurgitation. Pericardium Trivial pericardial effusion. Aorta Normal size aortic root and proximal ascending aorta. CONCLUSIONS 1. Normal left ventricular size, systolic function and wall thickness, with no regional wall motion abnormalities. Left ventricular ejection fraction is estimated at 60-65%. Grade I diastolic dysfunction (abnormal relaxation filling pattern), normal to mildly elevated filling pressures. 2. Trace to mild tricuspid valve regurgitation. 3. Trivial pericardial effusion. 4. No prior similar studies to compare. Nicole Oconnell MD (Electronically Signed) Final Date: 12 May 2021 22:23 S
== END 2021-05-08 12:36 | disposition home or self-care (01) ==
LOC: US 12:36
PROVIDERS: PCP Internal Medicine; Visit Provider Internal Medicine Cardiovascular Disease
DX: I77.89 Other specified disorders of arteries and arterioles (principal); Z79.899 Other long term (current) drug therapy; I07.1 Rheumatic tricuspid insufficiency; I65.23 Occlusion and stenosis of bilateral carotid arteries; R55 Syncope and collapse
CPT/HCPCS: 93306; 93880

== ENCOUNTER 2021-05-10 05:38 | Outpatient (RCR) | payer MEDICARE, OTHER, SELFPAY ==
[2021-04-17 16:00] LABS: Basophils % 0.7 %; Eosinophils # 0.2 10^3/uL (0.0-0.8); Hematocrit 40.8 % (42.0-52.0); Hemoglobin 13.4 g/dL (11.7-16.6); Lymphocytes # 1.8 10^3/uL (0.8-4.8); Lymphocytes % 31.8 %; Mean Corpuscular HGB Conc 32.8 g/dL (30.0-36.0); Mean Corpuscular Volume 91.3 fL (80-94); Mean Platelet Volume 9.5 fL (7.4-10.4); Monocytes # 0.4 10^3/uL (0.2-0.9); Monocytes % 6.9 %; Neutrophils # 3.11 10^3/uL (1.8-7.7); Neutrophils % 56.2 %; Nucleated Red Blood Cells % 0 %; Platelet Count 196 10^3/cmm (130-400); Red Blood Count 4.47 10^6/uL (4.1-5.3); Red Cell Distribution Width 13.2 % (12.1-15.1); White Blood Count 5.5 10^3/uL (4.0-10.0)
[2021-04-17 16:29] LABS: Alanine Aminotransferase 11 U/L (0-41); Albumin Level 3.6 g/dL (3.5-5.2); Alkaline Phosphatase 135 IU/L (40-130); Anion Gap 11.9 (5-19); Aspartate Amino Transferase 17 U/L (0-40); Blood Urea Nitrogen 9 mg/dL (8-23); Calcium 8.4 mg/dL (8.5-10.5); Carbon Dioxide 25 mmol/L (22-29); Chloride 103 mmol/L (98-107); Glucose 101 mg/dL (65-115); Osmolality Calculated 281 mOsm/kg (285-295); Potassium 3.9 mmol/L (3.5-5.1); Sodium 136 mmol/L (136-145); Total Bilirubin 0.5 mg/dL (0.15-1.2); Total Protein 6.6 g/dL (6.6-8.7)
[2021-04-17 21:33] LABS: Cancer Antigen 19 9 26.47 U/mL (0-35)
[2021-04-18] MEDS: sodium chloride 0.9% 250 ML 75 ML IV (09:30)
[2021-04-18] MEDS: palonosetron 0.25 mg/5 mL SDV IVP (09:30)
[2021-04-18] MEDS: FUROsemide 10 mg/mL SDV 2mL 20 MG IV (13:55)
[2021-04-18] MEDS: sodium chlor 0.9% + KCl 20 mEq 20 MEQ/1,000 ML BAG 500 MEQ IV (13:56)
--- NOTE | 2021-04-18 17:13 | ONC FU_ITS ---
Dr. Acosta Patient Follow-Up Note Patient: Misbah Springer Unit #: [id number]: [id number] Dicatated By: Evaristo Acosta M.D.Date of Visit:Apr 18, 2021 Onc Med Follow-up/Prog Note Chief Complaint: Pancreatic cancer. 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 By clinical evaluation, his disease appeared to be stage IIA (T3, N0, M0). His symptoms began in December 2017 with a sensation of fullness in the abdominal area. He then lost appetite and began losing weight. He also got very weak. His CT of the abdomen on 02/15/2018 showed pancreatic ductal dilatation and common bile duct dilatation, the latter measuring up to 22 mm, with abrupt termination secondary to a pancreatic head mass. The mass appeared to measure 3.5 x 3.3 cm. The exam was limited to due lack of IV contrast. He was referred to Dr. Cain Joseph at [facility] in [place] where he underwent ERCP with placement of biliary stent on 03/08/2018. The ERCP showed roughly 3 cm stricture of the distal bile duct with dilatation of the extrahepatic biliary tree proximal to that area. Upper EUS at that time showed a 3.6 x 3.7 hypoechoic mass at the level of the head of the pancreas with obstruction of the extrahepatic bile duct. The mass did not appear to involve the visualized portions of the celiac artery or SMA, but it was noted to abut the portal vein. A 12 x 9 mm hyperechoic nodule was noted in the left lobe of the liver. He underwent FNA of both the pancreatic head mass and the hepatic lesion. Pathology on the liver showed benign hepatocytes with no malignant cells identified. The pancreas showed atypical cells, but no definite malignancy. He had surgical oncology consultation with Dr. Trev Marquez at [facility] on 03/29/2018. CT abdomen/pelvis at that time showed mass in the head of the pancreas measuring approximately 3.8 cm. It was noted to infiltrate the surrounding fat in the pancreaticoduodenal groove. The mass was noted to abut the common hepatic artery along its inferior margin, but it did not appear to be encasing it. It was also noted to abut the inferior margin of the portal vein and the right lateral margin of the geno splenic confluence, but it did not appear to encase vascular structures. The superior mesenteric vein, splenic vein, celiac trunk, splenic artery, and superior mesenteric artery were noted to all be distant from the mass. His recommendation was to initiate chemotherapy following confirmation of tissue diagnosis and then reevaluate for possible surgical resection or chemoradiation. Repeat FNA of the pancreatic head mass on 04/05/2018 was positive for adenocarcinoma. I had seen him initially on 04/20/2018. After discussing options for neoadjuvant chemotherapy, he agreed to begin treatment with a modified FOLFIRINOX regimen. It was administered at a reduced dosage of irinotecan and with omission of the 5-FU bolus. He began cycle 1 of FOLFIRINOX on 04/28/2018. His baseline CA-19-9 level was 515 U/mL. He had no acute toxicity with his treatment. However, at day 10 he was admitted to the hospital after presenting to the emergency room with abdominal pain and fever. He was severely neutropenic, ANC 200. He was treated with Neupogen and broad-spectrum antibiotic coverage, with subsequent recovery. However, during that time he also developed pretty severe diarrhea as well as nausea and anorexia. His clinical course also was complicated by urinary retention. He was discharged home on 05/14/2018 with indwelling Kelly catheter. He was seen for a follow-up visit on 05/24/2018. He still had somewhat marginal performance status, but at that point he was improving. His CA-19-9 level had decreased significantly, to 227 U/mL. Given the fact that he did appear to be showing response to the chemotherapy, we did opt to continue his treatment, but with the regimen changed to modified FOLFOX. He developed some increase in neuropathy with the 1st cycle of FOLFOX, but he otherwise tolerated it well. He was able to continue with the 2nd cycle on 06/07/2018. At that point there was further decrease in the CA-19-9 level to 90 U/mL. He then continued with cycle 3 on 06/22/2018. The CA-19-9 had declined to 44 U/mL. He had followup with Dr. Marquez at [facility] on 07/05/2018. As he appeared to have a good response to the neoadjuvant chemotherapy he was offered the option of undergoing surgical resection. He then underwent pancreaticoduodenectomy on 08/18/2018 with complete resection of the tumor. There was no gross evidence of metastatic disease. Pathology showed just a single focus of residual adenocarcinoma measuring less than 0.1 cm, consistent with near-complete response. There was a residual fibrotic tumor bed extending for approximately 2.1 cm, and there was adjacent high-grade dysplasia. There was no lymphovascular or perineural invasion present. All margins were negative for malignancy. A total of 20 regional lymph nodes were negative for metastatic involvement. Final staging was ypT1a, ypN0. Given the excellent response to the neoadjuvant treatment he was recommended to have additional 4 to 8 cycles of postoperative adjuvant chemotherapy and possibly chemoradiation. He began cycle 1 of postoperative adjuvant chemotherapy with modified FOLFOX on 09/28/2018. He had mild neuropathy symptoms, but no other significant toxicity. He continued with his 2nd postoperative cycle on 10/12/2018, with cycle 3 on 10/26/2018, and with cycle 4 on 11/09/2018. At that point his neuropathy symptoms were getting noticeably worse, and it did opt to stop his chemotherapy after that treatment. He was then followed on observation/expectant management, as he opted not to take chemoradiation. His other medical illnesses include hypertension, dyslipidemia, hypothyroidism, obstructive sleep apnea, and benign prostatic hypertrophy. He also has a history of seizure. He is a nonsmoker. INTERIM HISTORY: At his follow-up visit in June 2020 his CA 19-9 level had increased to 34 U/mL. A surveillance CT abdomen/pelvis on 07/19/2020 showed residual density in the area of the head of the pancreas measuring 2.92 x 5.90 cm. There was air noted in the biliary system and he was noted to have 3 ventral hernias. There was no obvious metastatic disease. At his follow-up visit on 10/11/2020 he appeared stable clinically. His CA 19-9 level was back down to 29.9 U/mL. His repeat CT abdomen/pelvis on 01/11/2021 showed increasing soft tissue mass at the pancreatic head compared to the 07/19/2020 study. Further evaluation with PET/CT on 01/19/2021 showed an FDG avid soft tissue mass in the precaval region of the upper abdomen measuring 2.5 x 2.0 cm, SUV 6.3, consistent with recurrent malingancy. The pancreatic head was noted to be enlarged with diffuse increased uptake, also suspicious for malignancy. Also noted was internval development of left upper quadrant omental soft tissue implants, SUV 4.9, and multiple FDG positive bilateral mediastinal lymph nodes, likely malignant. A lytic lesion with sclerotic rim in the T9 vertebral body had SUV 4.6, consistent with osseous metastatic disease and a similar lesion was noted in the lateral T2 vertebral body. He was seen for follow-upon 02/14/2021. He was not overtly symptomatic, but given the PET/CT findings, I did recommend that he begin systemic therapy pending outcome of next generation sequencing study. That study was performed by liquid biopsy and it did show evidence of a BRCA1 mutation at an allelic fraction which was suspicious for germline origin (48.7%). He is still feeling good generally. He has good energy and he still has normal activity. ECOG score is 0. His appetite has been the same since his surgery. His weight is stable. He has no fever or night sweats. He has no shortness of breath, cough, or chest pain. He has no GI/ complaints other than his urination is slow. He is not having any significant joint or bone pain. He does not complain of headache or dizziness, and he has no residual neuropathy. Medications: Levothyroxine Sodium 1 Tablet (of 125 mcg) Oral daily, Metoprolol Succinate ER 1.5 (50 mg) Tablet SR 24 HR Oral daily, Tamsulosin HCl 1 Tablet (of 0.4 mg) Capsule Oral at bedtime Allergies: Amoxicillin and Sulfa. Vital Signs: Performed on Apr 18, 2021 08:41 Height - 68.00 in Weight - 184.2 lbs (LOW) BSA - 1.97 sq.m BMI - 28.01 Temperature - 98.7 F Pulse - 55 /min (LOW) Respiration - 18 /min BP - 117/74 mm(hg) O2 Sat - 95 % (LOW) Pain - 0 Fatigue - 4 Physical Examination: Constitutional - He looks good generally, Eyes - Sclerae nonicteric. Conjunctivae clear, ENMT - No lesions noted in the oral cavity, Hematologic/Lymphatic - No cervical, clavicular, or axillary adenopathy, Respiratory - Lungs are clear with good air movement bilaterally, Cardiovascular - Heart rhythm is regular. There is no murmur, gallop, or rub noted, Abdomen - Mildly distended but soft. There is a ventral hernia. Liver and spleen are not enlarged. There is no abdominal mass or ascites noted and there is no inguinal adenopathy, Extremities - No edema, Neurologic - No focal neurologic deficits noted. Lab/Imaging: CBC shows hemoglobin 13.4 g, white blood cell count 5500, and platelet count 196,000. Comprehensive metabolic profile is unremarkable. The CA 19-9 level is down slightly at 26.47 U/mL. Problem List: 1. Adenocarcinoma of the head of the pancreas. By clinical evaluation, his disease appears to be stage IIA (T3, N0, M0). He underwent ERCP with placement of biliary stent and upper EUS 03/08/2018. The diagnosis was confirmed by repeat FNA of the pancreatic head mass on 04/07/2018. 2. Hypertension. 3. Hyperlipidemia. 4. Hypothyroidism. 5. Obstructive sleep apnea. 6. Benign prostatic hypertrophy. 7. He has a history of seizure. 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 By clinical evaluation, his disease appears to be stage IIA (T3, N0, M0). He underwent ERCP with placement of biliary stent and upper EUS 03/08/2018. The diagnosis was confirmed by repeat FNA of the pancreatic head mass on 04/07/2018. He had a very good response to neoadjuvant chemotherapy with FOLFIRINOX, though it did cause severe toxicities. He had further neoadjuvant chemotherapy with 3 cycles of modified FOLFOX and he then underwent pancreaticoduodenectomy on 08/18/2018. Pathology showed near complete response to the chemotherapy with one focus of residual tumor measuring less than 0.1 cm. The margins were free and there was no involvement in 20 lymph nodes. Pathologic staging was ypT1a, ypN0. He was then given postoperative adjuvant chemotherapy with an additional 4 cycles of modified FOLFOX, completed in October 2018. He was then followed on observation/expectant management, as he declined chemoradiation. As of his follow-up visit in June 2020 there was an increase in his CA 19-9 level up to 34 U/mL. His surveillance CT abdomen/pelvis on 07/19/2020 showed residual density in the area of the head of the pancreas measuring 2.92 x 5.90 cm. There was air noted in the biliary system, and he was noted to have 3 ventral hernias. There was no obvious metastatic disease. As of his follow-up visit in September 2020 his CA 19-9 level was back down to 29.91 U/mL. He continued observation/expectant management. His repeat CT abdomen/pelvis on 01/11/2021 showed further increase in the lobulated mass in the area of the pancreatic head measuring 3.4 x 6.3 cm. The appearance was suspicious for recurrent neoplasm. With those findings had had further evaluation with PET/CT on 01/19/2021 and that study showed FDG uptake in upper abdominal precaval mass, in the area of the pancreatic head, and bilateral mediastinal lymph nodes and in left upper quadrant omental soft tissue implants consistent with recurrence/metastatic disease. Also noted were suspected metastatic lesions in the T2 and T9 vertebral bodies. A next generation sequencing study by liquid biopsy showed evidence of a BRCA1 mutation. Based on the allelic fraction, it was suspicious for a germline mutation. At this point he is not overtly symptomatic and there really has not been any significant increase in his tumor marker. However, with the PET/CT showing multiple sites of FDG uptake, the probability is very high that he has metastatic disease. In the setting of a known BRCA1 mutation, I have recommended that he restart systemic therapy with a [place]-based chemotherapy regimen, specifically cisplatin/gemcitabine. If he is showing response after 3-4 cycles, he can then be transitioned to maintenance therapy with a PARP inhibitor. He is going to start his first cycle of chemotherapy today. Will be administered on day 1/day 15 schedule. I reviewed anticipated side effects which may include nausea/vomiting, alopecia, fatigue, and low blood counts, among others. The risk of neuropathy, though, will be much lower with this regimen. He will return for a blood count in 1 week and for a follow-up visit in 2 weeks. In the meantime, he will also now have genetic screening to verify if the BRCA1 mutation is germline, as it will potentially have implications for his son. Signed By: Evaristo Acosta M.D. <<Signature on File>>
[2021-04-25 14:42] LABS: Basophils % 1.2 %; Eosinophils # 0.1 10^3/uL (0.0-0.8); Eosinophils % 2.8 %; Hematocrit 39.8 % (42.0-52.0); Hemoglobin 13.4 g/dL (11.7-16.6); Lymphocytes # 1.1 10^3/uL (0.8-4.8); Lymphocytes % 42.9 %; Mean Corpuscular HGB Conc 33.7 g/dL (30.0-36.0); Mean Corpuscular Hemoglobin 29.8 pg (28.0-34.0); Mean Corpuscular Volume 88.6 fL (80-94); Mean Platelet Volume 9.5 fL (7.4-10.4); Monocytes # 0.1 10^3/uL (0.2-0.9); Monocytes % 2.4 %; Neutrophils # 1.27 10^3/uL (1.8-7.7); Neutrophils % 50.3 %; Nucleated Red Blood Cells % 0 %; Platelet Count 141 10^3/cmm (130-400); Red Blood Count 4.49 10^6/uL (4.1-5.3); Red Cell Distribution Width 12.7 % (12.1-15.1); White Blood Count 2.5 10^3/uL (4.0-10.0)
[2021-05-01 14:57] LABS: Basophils % 0.9 %; Eosinophils # 0.1 10^3/uL (0.0-0.8); Eosinophils % 3.3 %; Hematocrit 38.5 % (42.0-52.0); Lymphocytes # 1.2 10^3/uL (0.8-4.8); Lymphocytes % 36.9 %; Mean Corpuscular HGB Conc 33.8 g/dL (30.0-36.0); Mean Corpuscular Volume 88.9 fl (80-94); Mean Platelet Volume 9.4 fL (7.4-10.4); Monocytes # 0.1 10^3/uL (0.2-0.9); Monocytes % 4.2 %; Neutrophils # 1.81 10^3/uL (1.8-7.7); Neutrophils % 54.4 %; Nucleated Red Blood Cells % 0 %; Platelet Count 119 10^3/cmm (130-400); Red Blood Count 4.33 10^6/uL (4.1-5.3); Red Cell Distribution Width 13.4 % (12.1-15.1); White Blood Count 3.3 10^3/uL (4.0-10.0)
[2021-05-01 16:26] LABS: Alanine Aminotransferase 26 U/L (0-41); Albumin Level 3.8 g/dL (3.5-5.2); Alkaline Phosphatase 119 IU/L (40-130); Anion Gap 14.3 (5-19); Aspartate Amino Transferase 31 U/L (0-40); Blood Urea Nitrogen 15 mg/dL (8-23); Calcium 8.4 mg/dL (8.5-10.5); Carbon Dioxide 24 mmol/L (22-29); Chloride 101 mmol/L (98-107); Glucose 93 mg/dL (65-115); Osmolality Calculated 281 mOsm/kg (285-295); Potassium 4.3 mmol/L (3.5-5.1); Sodium 135 mmol/L (136-145); Total Bilirubin 0.4 mg/dL (0.15-1.2); Total Protein 6.8 g/dL (6.6-8.7)
[2021-05-02] MEDS: sodium chloride 0.9% 250 ML 75 ML IV (08:33)
[2021-05-02] MEDS: palonosetron 0.25 mg/5 mL SDV IV (10:50)
[2021-05-02] MEDS: fosaprepitant 150 MG in sodium chloride 0.9% 150 ML 300 MG IV (11:07)
[2021-05-02] MEDS: FUROsemide 10 mg/mL SDV 2mL 20 MG IV (13:26)
[2021-05-02] MEDS: sodium chlor 0.9% + KCl 20 mEq 20 MEQ/1,000 ML BAG 500 MEQ IV (13:27)
--- NOTE | 2021-05-02 20:12 | ONC FU_ITS ---
Dr. Acosta Patient Follow-Up Note Patient: Misbah Springer Unit #: [id number]: 1945 Dicatated By: Evaristo Acosta M.D.Date of Visit:May 02, 2021 Onc Med Follow-up/Prog Note Chief Complaint: Pancreatic cancer. 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 By clinical evaluation, his disease appeared to be stage IIA (T3, N0, M0) at initial diagnosis in February 2018. He has had subsequent progression to stage IV. 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 His symptoms began in December 2017 with a sensation of fullness in the abdominal area. He then lost appetite and began losing weight. He also got very weak. His CT of the abdomen on 02/15/2018 showed pancreatic ductal dilatation and common bile duct dilatation, the latter measuring up to 22 mm, with abrupt termination secondary to a pancreatic head mass. The mass appeared to measure 3.5 x 3.3 cm. The exam was limited to due lack of IV contrast. He was referred to Dr. Cain Joseph at [facility] in [place] where he underwent ERCP with placement of biliary stent on 03/08/2018. The ERCP showed roughly 3 cm stricture of the distal bile duct with dilatation of the extrahepatic biliary tree proximal to that area. Upper EUS at that time showed a 3.6 x 3.7 hypoechoic mass at the level of the head of the pancreas with obstruction of the extrahepatic bile duct. The mass did not appear to involve the visualized portions of the celiac artery or SMA, but it was noted to abut the portal vein. A 12 x 9 mm hyperechoic nodule was noted in the left lobe of the liver. He underwent FNA of both the pancreatic head mass and the hepatic lesion. Pathology on the liver showed benign hepatocytes with no malignant cells identified. The pancreas showed atypical cells, but no definite malignancy. He had surgical oncology consultation with Dr. Trev Marquez at [facility] on 03/29/2018. CT abdomen/pelvis at that time showed mass in the head of the pancreas measuring approximately 3.8 cm. It was noted to infiltrate the surrounding fat in the pancreaticoduodenal groove. The mass was noted to abut the common hepatic artery along its inferior margin, but it did not appear to be encasing it. It was also noted to abut the inferior margin of the portal vein and the right lateral margin of the geno splenic confluence, but it did not appear to encase vascular structures. The superior mesenteric vein, splenic vein, celiac trunk, splenic artery, and superior mesenteric artery were noted to all be distant from the mass. His recommendation was to initiate chemotherapy following confirmation of tissue diagnosis and then reevaluate for possible surgical resection or chemoradiation. Repeat FNA of the pancreatic head mass on 04/05/2018 was positive for adenocarcinoma. I had seen him initially on 04/20/2018. After discussing options for neoadjuvant chemotherapy, he agreed to begin treatment with a modified FOLFIRINOX regimen. It was administered at a reduced dosage of irinotecan and with omission of the 5-FU bolus. He began cycle 1 of FOLFIRINOX on 04/28/2018. His baseline CA-19-9 level was 515 U/mL. He had no acute toxicity with his treatment. However, at day 10 he was admitted to the hospital after presenting to the emergency room with abdominal pain and fever. He was severely neutropenic, ANC 200. He was treated with Neupogen and broad-spectrum antibiotic coverage, with subsequent recovery. However, during that time he also developed pretty severe diarrhea as well as nausea and anorexia. His clinical course also was complicated by urinary retention. He was discharged home on 05/14/2018 with indwelling Kelly catheter. He was seen for a follow-up visit on 05/24/2018. He still had somewhat marginal performance status, but at that point he was improving. His CA-19-9 level had decreased significantly, to 227 U/mL. Given the fact that he did appear to be showing response to the chemotherapy, we did opt to continue his treatment, but with the regimen changed to modified FOLFOX. He developed some increase in neuropathy with the 1st cycle of FOLFOX, but he otherwise tolerated it well. He was able to continue with the 2nd cycle on 06/07/2018. At that point there was further decrease in the CA-19-9 level to 90 U/mL. He then continued with cycle 3 on 06/22/2018. The CA-19-9 had declined to 44 U/mL. He had followup with Dr. Marquez at [facility] on 07/05/2018. As he appeared to have a good response to the neoadjuvant chemotherapy he was offered the option of undergoing surgical resection. He then underwent pancreaticoduodenectomy on 08/18/2018 with complete resection of the tumor. There was no gross evidence of metastatic disease. Pathology showed just a single focus of residual adenocarcinoma measuring less than 0.1 cm, consistent with near-complete response. There was a residual fibrotic tumor bed extending for approximately 2.1 cm, and there was adjacent high-grade dysplasia. There was no lymphovascular or perineural invasion present. All margins were negative for malignancy. A total of 20 regional lymph nodes were negative for metastatic involvement. Final staging was ypT1a, ypN0. Given the excellent response to the neoadjuvant treatment he was recommended to have additional 4 to 8 cycles of postoperative adjuvant chemotherapy and possibly chemoradiation. He began cycle 1 of postoperative adjuvant chemotherapy with modified FOLFOX on 09/28/2018. He had mild neuropathy symptoms, but no other significant toxicity. He continued with his 2nd postoperative cycle on 10/12/2018, with cycle 3 on 10/26/2018, and with cycle 4 on 11/09/2018. At that point his neuropathy symptoms were getting noticeably worse, and it did opt to stop his chemotherapy after that treatment. He was then followed on observation/expectant management, as he opted not to take chemoradiation. At his follow-up visit in June 2020 his CA 19-9 level had increased to 34 U/mL. A surveillance CT abdomen/pelvis on 07/19/2020 showed residual density in the area of the head of the pancreas measuring 2.92 x 5.90 cm. There was air noted in the biliary system and he was noted to have 3 ventral hernias. There was no obvious metastatic disease. At his follow-up visit on 10/11/2020 he appeared stable clinically. His CA 19-9 level was back down to 29.9 U/mL. His repeat CT abdomen/pelvis on 01/11/2021 showed increasing soft tissue mass at the pancreatic head compared to the 07/19/2020 study. Further evaluation with PET/CT on 01/19/2021 showed an FDG avid soft tissue mass in the precaval region of the upper abdomen measuring 2.5 x 2.0 cm, SUV 6.3, consistent with recurrent malingancy. The pancreatic head was noted to be enlarged with diffuse increased uptake, also suspicious for malignancy. Also noted was internval development of left upper quadrant omental soft tissue implants, SUV 4.9, and multiple FDG positive bilateral mediastinal lymph nodes, likely malignant. A lytic lesion with sclerotic rim in the T9 vertebral body had SUV 4.6, consistent with osseous metastatic disease and a similar lesion was noted in the lateral T2 vertebral body. He was seen for follow-up on 02/14/2021. He was not overtly symptomatic, but given the PET/CT findings, I did recommend that he begin systemic therapy pending outcome of next generation sequencing study. That study was performed by liquid biopsy, and it did show evidence of a BRCA1 mutation at an allelic fraction which was suspicious for germline origin (48.7%). On a subsequent genetic screening study he was confirmed to be heterozygous for a pathogenic BRCA1 mutation ([id number]). Given those findings, I had recommended that he restart chemotherapy with a cisplatin/gemcitabine combination for 4 cycles, with the option to then transition to maintenance therapy with a PARP inhibitor depending on the response. His other medical illnesses include hypertension, dyslipidemia, hypothyroidism, obstructive sleep apnea, and benign prostatic hypertrophy. He also has a history of seizure. He is a nonsmoker. INTERIM HISTORY: He began cycle 1 of cisplatin/gemcitabine on 04/18/2021. He tolerated the initial infusions without acute toxicities. He is seen for a follow-up visit. He has been feeling pretty good generally. He has been more tired following his day 1 chemotherapy, but his energy now is getting better, and he is doing light work. His ECOG score is 1. He developed constipation for several days after the treatment, but that subsequently resolved. He still complains that he is not hungry, but he is eating. He does not have fever or night sweats. He has had no mouth sores. He has a hacking cough. He does not complain of shortness of breath. He had some pain in his upper chest for a day or 2 after treatment. He has not had any nausea or vomiting. He has had no diarrhea. His urination is slow, but that is chronic. He does not complain of headache or dizziness. He has no numbness/paresthesia or other neuropathy symptoms. Medications: Levothyroxine Sodium 1 Tablet (of 125 mcg) Oral daily, Metoprolol Succinate ER 1.5 (50 mg) Tablet SR 24 HR Oral daily, Tamsulosin HCl 1 Tablet (of 0.4 mg) Capsule Oral at bedtime Allergies: Amoxicillin and Sulfa. Vital Signs: Performed on May 02, 2021 10:12 Height - 68.00 in Weight - 183.8 lbs (LOW) BSA - 1.97 sq.m BMI - 27.95 Temperature - 97.1 F (LOW) Pulse - 57 /min (LOW) Respiration - 18 /min BP - 133/77 mm(hg) O2 Sat - 97 % Pain - 0 Fatigue - 8 Physical Examination: Constitutional - He looks good generally, Eyes - Sclerae nonicteric. Conjunctivae clear, ENMT - No lesions noted in the oral cavity, Hematologic/Lymphatic - No cervical, clavicular, or axillary adenopathy, Respiratory - Lungs are clear with good air movement bilaterally, Cardiovascular - Heart rhythm is regular. There is no murmur, gallop, or rub noted, Abdomen - Mildly distended but soft. There is a ventral hernia. Liver and spleen are not enlarged. There is no abdominal mass or ascites noted and there is no inguinal adenopathy, Extremities - No edema, Neurologic - No focal neurologic deficits noted. Lab/Imaging: CBC shows hemoglobin 13.0 g, white blood cell count 3300, and platelet count 119,000. The absolute neutrophil count is 1800. Comprehensive metabolic profile is unremarkable. Problem List: 1. Adenocarcinoma of the head of the pancreas. By clinical evaluation, his disease appears to be stage IIA (T3, N0, M0) at intial diagnosis in February 2018. He has had subsequent progression to stage IV. He also has been found to be a BRCA1 mutation carrier. 2. Hypertension. 3. Hyperlipidemia. 4. Hypothyroidism. 5. Obstructive sleep apnea. 6. Benign prostatic hypertrophy. 7. He has a history of seizure. 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 By clinical evaluation, his disease appears to be stage IIA (T3, N0, M0). He underwent ERCP with placement of biliary stent and upper EUS 03/08/2018. The diagnosis was confirmed by repeat FNA of the pancreatic head mass on 04/07/2018. He had a very good response to neoadjuvant chemotherapy with FOLFIRINOX, though it did cause severe toxicities. He had further neoadjuvant chemotherapy with 3 cycles of modified FOLFOX and he then underwent pancreaticoduodenectomy on 08/18/2018. Pathology showed near complete response to the chemotherapy with one focus of residual tumor measuring less than 0.1 cm. The margins were free and there was no involvement in 20 lymph nodes. Pathologic staging was ypT1a, ypN0. He was then given postoperative adjuvant chemotherapy with an additional 4 cycles of modified FOLFOX, completed in October 2018. He was then followed on observation/expectant management, as he declined chemoradiation. As of his follow-up visit in June 2020 there was an increase in his CA 19-9 level up to 34 U/mL. His surveillance CT abdomen/pelvis on 07/19/2020 showed residual density in the area of the head of the pancreas measuring 2.92 x 5.90 cm. There was air noted in the biliary system, and he was noted to have 3 ventral hernias. There was no obvious metastatic disease. As of his follow-up visit in September 2020 his CA 19-9 level was back down to 29.91 U/mL. He continued observation/expectant management. His repeat CT abdomen/pelvis on 01/11/2021 showed further increase in the lobulated mass in the area of the pancreatic head measuring 3.4 x 6.3 cm. The appearance was suspicious for recurrent neoplasm. With those findings had had further evaluation with PET/CT on 01/19/2021 and that study showed FDG uptake in upper abdominal precaval mass, in the area of the pancreatic head, and bilateral mediastinal lymph nodes and in left upper quadrant omental soft tissue implants consistent with recurrence/metastatic disease. Also noted were suspected metastatic lesions in the T2 and T9 vertebral bodies. A next generation sequencing study by liquid biopsy showed evidence of a BRCA1 mutation. Based on the allelic fraction, it was suspicious for a germline mutation. I subsequent genetic screening study he was confirmed to be heterozygous for a BRCA1 mutation. On 04/18/2020 when he restarted chemotherapy with cycle 1 of cisplatin/gemcitabine. Toxicities were relatively mild and included fatigue and constipation. He was significantly neutropenic at day 8 with absolute neutrophil count 1200. He does appear to be showing adequate recovery, and he will proceed now with his day 15 treatment. Based on his blood counts, the dosages will be reduced by 20%. He will be scheduled for follow-up visit in 2 weeks. Signed By: Evaristo Acosta M.D. <<Signature on File>>
[2021-05-08 15:19] LABS: Basophils % 1.9 %; Hematocrit 37.2 % (42.0-52.0); Hemoglobin 12.8 g/dL (11.7-16.6); Lymphocytes # 0.7 10^3/uL (0.8-4.8); Lymphocytes % 70.9 %; Mean Corpuscular HGB Conc 34.4 g/dL (30.0-36.0); Mean Corpuscular Hemoglobin 30.5 pg (28.0-34.0); Mean Corpuscular Volume 88.6 fl (80-94); Mean Platelet Volume 8.8 fL (7.4-10.4); Monocytes # 0.1 10^3/uL (0.2-0.9); Monocytes % 6.8 %; Neutrophils % 19.4 %; Nucleated Red Blood Cells % 0 %; Platelet Count 249 10^3/cmm (130-400); Red Cell Distribution Width 13.5 % (12.1-15.1)
[2021-05-08 15:44] LABS: Alanine Aminotransferase 25 U/L (0-41); Albumin Level 3.8 g/dL (3.5-5.2); Alkaline Phosphatase 128 IU/L (40-130); Anion Gap 16.9 (5-19); Aspartate Amino Transferase 28 U/L (0-40); Blood Urea Nitrogen 16 mg/dL (8-23); Calcium 8.2 mg/dL (8.5-10.5); Carbon Dioxide 22 mmol/L (22-29); Chloride 95 mmol/L (98-107); Globulin 3.2 g/dL (1.3-4.6); Glucose 127 mg/dL (65-115); Osmolality Calculated 273 mOsm/kg (285-295); Potassium 3.9 mmol/L (3.5-5.1); Sodium 130 mmol/L (136-145); Total Bilirubin 0.3 mg/dL (0.15-1.2)
== END 2021-05-14 23:59 | disposition home or self-care (01) ==
LOC: ONCMED 05:38
PROVIDERS: PCP Internal Medicine; Visit Provider Internal Medicine Medical Oncology
DX: Z51.11 Encounter for antineoplastic chemotherapy (principal); C25.0 Malignant neoplasm of head of pancreas; I10 Essential (primary) hypertension; E78.5 Hyperlipidemia, unspecified; E03.9 Hypothyroidism, unspecified; G47.33 Obstructive sleep apnea (adult) (pediatric); N40.0 Benign prostatic hyperplasia without lower urinary tract symptoms; G40.909 Epilepsy, unspecified, not intractable, without status epilepticus; Z79.899 Other long term (current) drug therapy
CPT/HCPCS: 36415; 36591; 80053; 85025; 86301; 96366; 96367; 96372; 96375; 96413; 96417; 99214; 99215; J1100; J1453; J1940; J2469; J3475; J3480; J7030; J7040; J7050; J9060; J9201; Q5101

== ENCOUNTER 2021-06-11 06:32 | Outpatient (RCR) | payer MEDICARE, OTHER, SELFPAY ==
[2021-05-15 14:35] LABS: Basophils # 0.1 10^3/uL (0.0-0.1); Eosinophils % 0.5 %; Hematocrit 37.7 % (42.0-52.0); Hemoglobin 12.8 g/dL (11.7-16.6); Lymphocytes # 1.5 10^3/uL (0.8-4.8); Lymphocytes % 24.5 %; Mean Corpuscular Volume 91.3 fl (80-94); Mean Platelet Volume 9.6 fL (7.4-10.4); Monocytes # 0.9 10^3/uL (0.2-0.9); Monocytes % 14.7 %; Neutrophils # 1.99 10^3/uL (1.8-7.7); Neutrophils % 32.4 %; Nucleated Red Blood Cells % 0.5 %; Platelet Count 129 10^3/cmm (130-400); Positive C 1; Positive M 1; Red Blood Count 4.13 10^6/uL (4.1-5.3); Red Cell Distribution Width 14.7 % (12.1-15.1); White Blood Count 6.1 10^3/uL (4.0-10.0)
[2021-05-15 15:11] LABS: Alanine Aminotransferase 9 U/L (0-41); Albumin Level 3.7 g/dL (3.5-5.2); Alkaline Phosphatase 137 IU/L (40-130); Anion Gap 14.2 (5-19); Aspartate Amino Transferase 16 U/L (0-40); Blood Urea Nitrogen 13 mg/dL (8-23); Calcium 8.3 mg/dL (8.5-10.5); Cancer Antigen 19 9 41.24 U/mL (0-35); Carbon Dioxide 24 mmol/L (22-29); Chloride 102 mmol/L (98-107); Glucose 111 mg/dL (65-115); Osmolality Calculated 283 mOsm/kg (285-295); Potassium 4.2 mmol/L (3.5-5.1); Sodium 136 mmol/L (136-145); Total Bilirubin 0.2 mg/dL (0.15-1.2); Total Protein 6.7 g/dL (6.6-8.7)
[2021-05-16] MEDS: sodium chloride 0.9% 250 ML 75 ML IV (09:25)
[2021-05-16] MEDS: palonosetron 0.25 mg/5 mL SDV IV (11:05)
[2021-05-16] MEDS: fosaprepitant 150 MG in sodium chloride 0.9% 150 ML 300 MG IV (11:25)
[2021-05-16] MEDS: FUROsemide 10 mg/mL SDV 2mL 20 MG IV (12:52)
[2021-05-16] MEDS: sodium chlor 0.9% + KCl 20 mEq 20 MEQ/1,000 ML BAG 500 MEQ IV (12:55)
--- NOTE | 2021-05-16 13:59 | ONC FU_ITS ---
Dr. Acosta Patient Follow-Up Note Patient: Misbah Springer Unit #: [id number]: 1945 Dicatated By: Evaristo Acosta M.D.Date of Visit:May 16, 2021 Onc Med Follow-up/Prog Note Chief Complaint: Pancreatic cancer. 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 By clinical evaluation, his disease appeared to be stage IIA (T3, N0, M0) at initial diagnosis in February 2018. He has had subsequent progression to stage IV. 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 His symptoms began in December 2017 with a sensation of fullness in the abdominal area. He then lost appetite and began losing weight. He also got very weak. His CT of the abdomen on 02/15/2018 showed pancreatic ductal dilatation and common bile duct dilatation, the latter measuring up to 22 mm, with abrupt termination secondary to a pancreatic head mass. The mass appeared to measure 3.5 x 3.3 cm. The exam was limited to due lack of IV contrast. He was referred to Dr. Cain Joseph at [facility] in [place] where he underwent ERCP with placement of biliary stent on 03/08/2018. The ERCP showed roughly 3 cm stricture of the distal bile duct with dilatation of the extrahepatic biliary tree proximal to that area. Upper EUS at that time showed a 3.6 x 3.7 hypoechoic mass at the level of the head of the pancreas with obstruction of the extrahepatic bile duct. The mass did not appear to involve the visualized portions of the celiac artery or SMA, but it was noted to abut the portal vein. A 12 x 9 mm hyperechoic nodule was noted in the left lobe of the liver. He underwent FNA of both the pancreatic head mass and the hepatic lesion. Pathology on the liver showed benign hepatocytes with no malignant cells identified. The pancreas showed atypical cells, but no definite malignancy. He had surgical oncology consultation with Dr. Trev Marquez at [facility] on 03/29/2018. CT abdomen/pelvis at that time showed mass in the head of the pancreas measuring approximately 3.8 cm. It was noted to infiltrate the surrounding fat in the pancreaticoduodenal groove. The mass was noted to abut the common hepatic artery along its inferior margin, but it did not appear to be encasing it. It was also noted to abut the inferior margin of the portal vein and the right lateral margin of the geno splenic confluence, but it did not appear to encase vascular structures. The superior mesenteric vein, splenic vein, celiac trunk, splenic artery, and superior mesenteric artery were noted to all be distant from the mass. His recommendation was to initiate chemotherapy following confirmation of tissue diagnosis and then reevaluate for possible surgical resection or chemoradiation. Repeat FNA of the pancreatic head mass on 04/05/2018 was positive for adenocarcinoma. I had seen him initially on 04/20/2018. After discussing options for neoadjuvant chemotherapy, he agreed to begin treatment with a modified FOLFIRINOX regimen. It was administered at a reduced dosage of irinotecan and with omission of the 5-FU bolus. He began cycle 1 of FOLFIRINOX on 04/28/2018. His baseline CA-19-9 level was 515 U/mL. He had no acute toxicity with his treatment. However, at day 10 he was admitted to the hospital after presenting to the emergency room with abdominal pain and fever. He was severely neutropenic, ANC 200. He was treated with Neupogen and broad-spectrum antibiotic coverage, with subsequent recovery. However, during that time he also developed pretty severe diarrhea as well as nausea and anorexia. His clinical course also was complicated by urinary retention. He was discharged home on 05/14/2018 with indwelling Kelly catheter. He was seen for a follow-up visit on 05/24/2018. He still had somewhat marginal performance status, but at that point he was improving. His CA-19-9 level had decreased significantly, to 227 U/mL. Given the fact that he did appear to be showing response to the chemotherapy, we did opt to continue his treatment, but with the regimen changed to modified FOLFOX. He developed some increase in neuropathy with the 1st cycle of FOLFOX, but he otherwise tolerated it well. He was able to continue with the 2nd cycle on 06/07/2018. At that point there was further decrease in the CA-19-9 level to 90 U/mL. He then continued with cycle 3 on 06/22/2018. The CA-19-9 had declined to 44 U/mL. He had followup with Dr. Marquez at [facility] on 07/05/2018. As he appeared to have a good response to the neoadjuvant chemotherapy he was offered the option of undergoing surgical resection. He then underwent pancreaticoduodenectomy on 08/18/2018 with complete resection of the tumor. There was no gross evidence of metastatic disease. Pathology showed just a single focus of residual adenocarcinoma measuring less than 0.1 cm, consistent with near-complete response. There was a residual fibrotic tumor bed extending for approximately 2.1 cm, and there was adjacent high-grade dysplasia. There was no lymphovascular or perineural invasion present. All margins were negative for malignancy. A total of 20 regional lymph nodes were negative for metastatic involvement. Final staging was ypT1a, ypN0. Given the excellent response to the neoadjuvant treatment he was recommended to have additional 4 to 8 cycles of postoperative adjuvant chemotherapy and possibly chemoradiation. He began cycle 1 of postoperative adjuvant chemotherapy with modified FOLFOX on 09/28/2018. He had mild neuropathy symptoms, but no other significant toxicity. He continued with his 2nd postoperative cycle on 10/12/2018, with cycle 3 on 10/26/2018, and with cycle 4 on 11/09/2018. At that point his neuropathy symptoms were getting noticeably worse, and it did opt to stop his chemotherapy after that treatment. He was then followed on observation/expectant management, as he opted not to take chemoradiation. At his follow-up visit in June 2020 his CA 19-9 level had increased to 34 U/mL. A surveillance CT abdomen/pelvis on 07/19/2020 showed residual density in the area of the head of the pancreas measuring 2.92 x 5.90 cm. There was air noted in the biliary system and he was noted to have 3 ventral hernias. There was no obvious metastatic disease. At his follow-up visit on 10/11/2020 he appeared stable clinically. His CA 19-9 level was back down to 29.9 U/mL. His repeat CT abdomen/pelvis on 01/11/2021 showed increasing soft tissue mass at the pancreatic head compared to the 07/19/2020 study. Further evaluation with PET/CT on 01/19/2021 showed an FDG avid soft tissue mass in the precaval region of the upper abdomen measuring 2.5 x 2.0 cm, SUV 6.3, consistent with recurrent malingancy. The pancreatic head was noted to be enlarged with diffuse increased uptake, also suspicious for malignancy. Also noted was internval development of left upper quadrant omental soft tissue implants, SUV 4.9, and multiple FDG positive bilateral mediastinal lymph nodes, likely malignant. A lytic lesion with sclerotic rim in the T9 vertebral body had SUV 4.6, consistent with osseous metastatic disease and a similar lesion was noted in the lateral T2 vertebral body. He was seen for follow-up on 02/14/2021. He was not overtly symptomatic, but given the PET/CT findings, I did recommend that he begin systemic therapy pending outcome of next generation sequencing study. That study was performed by liquid biopsy, and it did show evidence of a BRCA1 mutation at an allelic fraction which was suspicious for germline origin (48.7%). On a subsequent genetic screening study he was confirmed to be heterozygous for a pathogenic BRCA1 mutation ([id number]). Given those findings, I had recommended that he restart chemotherapy with a cisplatin/gemcitabine combination for 4 cycles, with the option to then transition to maintenance therapy with a PARP inhibitor depending on the response. His other medical illnesses include hypertension, dyslipidemia, hypothyroidism, obstructive sleep apnea, and benign prostatic hypertrophy. He also has a history of seizure. He is a nonsmoker. INTERIM HISTORY: He began cycle 1 of cisplatin/gemcitabine on 04/18/2021. It was complicated by weakness/fatigue and by severe neutropenia, but he recovered uneventfully. He proceeded with his cycle 1 day 15 treatment on 05/02/2021. It was administered with a 20% dose reduction. In the meantime, a scheduled carotid Doppler study on 05/08/2021 showed less than 50% ICA stenosis bilaterally. There was an incidental finding, though, of left jugular vein thrombosis. With that finding, he began anticoagulation with rivaroxaban. He is seen for a follow-up visit. He was again tired and weak following his chemotherapy treatment. He has just started to feel good again within the last few days. He still has limited activity. His ECOG score is 2. Appetite has been okay. He has no fever or night sweats. He has had no mouth sores. He has no shortness of breath, cough, or chest pain. He has not been having nausea and he has not had acid reflux symptoms. He had constipation for a few days. Urination is slow, but bladder function remains adequate. He has no significant joint or bone pain. He does not complain of headache or dizziness. He has no numbness/paresthesia or other focal neurologic symptoms. Medications: Levothyroxine Sodium 1 Tablet (of 125 mcg) Oral daily, Metoprolol Succinate ER 1.5 (50 mg) Tablet SR 24 HR Oral daily, Rivaroxaban Tablet Oral, Tamsulosin HCl 1 Tablet (of 0.4 mg) Capsule Oral at bedtime Allergies: Amoxicillin and Sulfa. Vital Signs: Performed on May 16, 2021 08:10 Height - 68.00 in Weight - 183 lbs (LOW) BSA - 1.97 sq.m BMI - 27.83 Temperature - 97 F (LOW) Pulse - 62 /min Respiration - 18 /min BP - 137/83 mm(hg) O2 Sat - 95 % (LOW) Pain - 0 Fatigue - 2 Physical Examination: Constitutional - He looks pretty good generally, Eyes - Sclerae nonicteric. Conjunctivae clear, ENMT - No lesions noted in the oral cavity, Hematologic/Lymphatic - No cervical, clavicular, or axillary adenopathy, Respiratory - Lungs are clear with good air movement bilaterally, Cardiovascular - Heart rhythm is regular. There is no murmur, gallop, or rub noted, Abdomen - Mildly distended but soft. There is a ventral hernia. Liver and spleen are not enlarged. There is no abdominal mass or ascites noted and there is no inguinal adenopathy, Extremities - No edema, Neurologic - No focal neurologic deficits noted. Lab/Imaging: CBC shows hemoglobin 12.8 g, white blood cell count 6100, and platelet count 129,000. Comprehensive metabolic profile is unremarkable except for slightly elevated alkaline phosphatase at 137/130 IU/L. Problem List: 1. Adenocarcinoma of the head of the pancreas. By clinical evaluation, his disease appears to be stage IIA (T3, N0, M0) at intial diagnosis in February 2018. He has had subsequent progression to stage IV. He also has been found to be a BRCA1 mutation carrier. 2. Hypertension. 3. Hyperlipidemia. 4. Hypothyroidism. 5. Obstructive sleep apnea. 6. Benign prostatic hypertrophy. 7. He has a history of seizure. Problems Addressed with this Encounter and Plan: 1. Patient with adenocarcinoma of the head of the pancreas. By clinical evaluation, his disease appears to be stage IIA (T3, N0, M0). He underwent ERCP with placement of biliary stent and upper EUS 03/08/2018. The diagnosis was confirmed by repeat FNA of the pancreatic head mass on 04/07/2018. He had a very good response to neoadjuvant chemotherapy with FOLFIRINOX, though it did cause severe toxicities. He had further neoadjuvant chemotherapy with 3 cycles of modified FOLFOX and he then underwent pancreaticoduodenectomy on 08/18/2018. Pathology showed near complete response to the chemotherapy with one focus of residual tumor measuring less than 0.1 cm. The margins were free and there was no involvement in 20 lymph nodes. Pathologic staging was ypT1a, ypN0. He was then given postoperative adjuvant chemotherapy with an additional 4 cycles of modified FOLFOX, completed in October 2018. He was then followed on observation/expectant management, as he declined chemoradiation. As of his follow-up visit in June 2020 there was an increase in his CA 19-9 level up to 34 U/mL. His surveillance CT abdomen/pelvis on 07/19/2020 showed residual density in the area of the head of the pancreas measuring 2.92 x 5.90 cm. There was air noted in the biliary system, and he was noted to have 3 ventral hernias. There was no obvious metastatic disease. As of his follow-up visit in September 2020 his CA 19-9 level was back down to 29.91 U/mL. He continued observation/expectant management. His repeat CT abdomen/pelvis on 01/11/2021 showed further increase in the lobulated mass in the area of the pancreatic head measuring 3.4 x 6.3 cm. The appearance was suspicious for recurrent neoplasm. With those findings had had further evaluation with PET/CT on 01/19/2021 and that study showed FDG uptake in upper abdominal precaval mass, in the area of the pancreatic head, and bilateral mediastinal lymph nodes and in left upper quadrant omental soft tissue implants consistent with recurrence/metastatic disease. Also noted were suspected metastatic lesions in the T2 and T9 vertebral bodies. A next generation sequencing study by liquid biopsy showed evidence of a BRCA1 mutation. Based on the allelic fraction, it was suspicious for a germline mutation. I subsequent genetic screening study he was confirmed to be heterozygous for a BRCA1 mutation. On 04/18/2021 he restarted chemotherapy with cycle 1 of cisplatin/gemcitabine. Toxicities were relatively mild and included fatigue and constipation. He was significantly neutropenic at day 8 with absolute neutrophil count 1200. He recovered uneventfully and he proceeded with his cycle 1 day 15 treatment on 05/02/2021. It was administered with a 20% dose reduction. Despite the reduction, he again became severely neutropenic, though he did recover uneventfully with Neupogen. In the meantime, he was found on scheduled carotid Doppler study to have an incidental finding of left internal jugular vein thrombosis. This is presumed to be Port-A-Cath related. He has on anticoagulation with rivaroxaban. His overall clinical status at this point appears stable. He will proceed with his cycle 2 of cisplatin/gemcitabine. He will have an additional dose reduction in the gemcitabine, and he also will be given Neulasta prophylactically. For now we will continue to use the Port-A-Cath, as it does appear to be functioning properly. He will continue his anticoagulation with rivaroxaban. He will return for treatment again in 2 weeks. I will plan restaging PET/CT in 4 weeks, that will be subject to verification of insurance coverage. Signed By: Evaristo Acosta M.D. <<Signature on File>>
[2021-05-17] MEDS: pegfilgrastim-bmez 6 mg/0.6 mL SYR SUBCUT (10:18)
[2021-05-22 15:25] LABS: Basophils # 0.2 10^3/uL (0.0-0.1); Basophils % 0.9 %; Hematocrit 36.5 % (42.0-52.0); Hemoglobin 12.3 g/dL (11.7-16.6); Lymphocytes # 1.3 10^3/uL (0.8-4.8); Lymphocytes % 6.2 %; Mean Corpuscular HGB Conc 33.7 g/dL (30.0-36.0); Mean Corpuscular Hemoglobin 30.9 pg (28.0-34.0); Mean Corpuscular Volume 91.7 fl (80-94); Mean Platelet Volume 9.3 fL (7.4-10.4); Monocytes # 0.7 10^3/uL (0.2-0.9); Monocytes % 3.1 %; Neutrophils # 18.63 10^3/uL (1.8-7.7); Neutrophils % 88.7 %; Nucleated Red Blood Cells % 0 %; Platelet Count 202 10^3/cmm (130-400); Red Blood Count 3.98 10^6/uL (4.1-5.3); Red Cell Distribution Width 14.6 % (12.1-15.1)
[2021-05-22 16:01] LABS: Slide Review Slide Review Perform
[2021-05-23 10:34] LABS: Add Urine Microscopic? YES; Bilirubin Urine Neg (Negative); Blood Urine 3+ (Negative); Glucose Urine UA Norm (Normal); Ketones Urine Negative (Negative); Leukocyte Esterase Urine Negative (Negative); Nitrate Urine Negative (Negative); Protein Urine Neg (Negative); Urine Appearance Clear (CLEAR); Urine Color Yellow (Yellow); Urobilinogen Urine Neg (Negative); pH Urine 5 (5-7)
[2021-05-23 10:35] LABS: Add Urine Culture? No; Squamous Epithelial Cell Urine 0-4 /hpf (0-5); Uric Acid Crystals Urine 0-4 /hpf
== END 2021-06-13 23:59 | disposition home or self-care (01) ==
LOC: ONCMED 06:32
PROVIDERS: PCP Internal Medicine; Visit Provider Internal Medicine Medical Oncology
DX: Z51.11 Encounter for antineoplastic chemotherapy (principal); C25.0 Malignant neoplasm of head of pancreas; I10 Essential (primary) hypertension; E78.5 Hyperlipidemia, unspecified; E03.9 Hypothyroidism, unspecified; G47.33 Obstructive sleep apnea (adult) (pediatric); N40.0 Benign prostatic hyperplasia without lower urinary tract symptoms; Z86.69 Personal history of other diseases of the nervous system and sense organs; Z79.899 Other long term (current) drug therapy
CPT/HCPCS: 36415; 36591; 80053; 81001; 85025; 86301; 96366; 96367; 96372; 96375; 96413; 96417; 96523; 99215; J1100; J1453; J1940; J2469; J3475; J3480; J7030; J7040; J7050; J9060; J9201; Q5120

== ENCOUNTER → 2021-07-03 07:53 | Outpatient (BNVA) | payer MEDICARE, OTHER, SELFPAY | PROVIDERS: PCP Internal Medicine; Visit Provider Urology | DX: R33.9 Retention of urine, unspecified (principal); R31.0 Gross hematuria; N40.1 Benign prostatic hyperplasia with lower urinary tract symptoms | CPT/HCPCS: 81003 ==

== ENCOUNTER 2021-07-15 10:40 | Outpatient (RCR) | payer MEDICARE, OTHER, SELFPAY ==
[2021-07-15 12:17] LABS: Basophils % 0.6 %; Eosinophils # 0.1 10^3/uL (0.0-0.8); Eosinophils % 2.1 %; Hematocrit 38.2 % (42.0-52.0); Hemoglobin 12.6 g/dL (11.7-16.6); Lymphocytes # 1.5 10^3/uL (0.8-4.8); Lymphocytes % 30.7 %; Mean Corpuscular Hemoglobin 31.3 pg (28.0-34.0); Mean Corpuscular Volume 94.8 fl (80-94); Mean Platelet Volume 8.8 fL (7.4-10.4); Monocytes # 0.4 10^3/uL (0.2-0.9); Monocytes % 8.5 %; Neutrophils % 58.1 %; Nucleated Red Blood Cells % 0 %; Platelet Count 173 10^3/cmm (130-400); Red Blood Count 4.03 10^6/uL (4.1-5.3); Red Cell Distribution Width 14.3 % (12.1-15.1); White Blood Count 4.8 10^3/uL (4.0-10.0)
[2021-07-15 12:52] LABS: Alanine Aminotransferase 14 U/L (0-41); Albumin Level 3.8 g/dL (3.5-5.2); Alkaline Phosphatase 112 IU/L (40-130); Anion Gap 14.1 (5-19); Aspartate Amino Transferase 20 U/L (0-40); Blood Urea Nitrogen 14 mg/dL (8-23); Calcium 8.8 mg/dL (8.5-10.5); Cancer Antigen 19 9 37.84 U/mL (0-35); Carbon Dioxide 24 mmol/L (22-29); Chloride 102 mmol/L (98-107); Globulin 3.2 g/dL (1.3-4.6); Glucose 93 mg/dL (65-115); Osmolality Calculated 282 mOsm/kg (285-295); Potassium 4.1 mmol/L (3.5-5.1); Sodium 136 mmol/L (136-145); Total Bilirubin 0.5 mg/dL (0.15-1.2)
== END 2021-08-13 23:59 | disposition home or self-care (01) ==
LOC: ONCMED 10:40
PROVIDERS: PCP Internal Medicine; Visit Provider Internal Medicine Medical Oncology
DX: C25.0 Malignant neoplasm of head of pancreas (principal); Z79.899 Other long term (current) drug therapy
CPT/HCPCS: 36415; 80053; 85025; 86301; 99211

== ENCOUNTER 2021-08-19 06:05 | Outpatient (RCR) | payer MEDICARE, OTHER, SELFPAY ==
[2021-08-16 10:39] LABS: Basophils # 0.1 10^3/uL (0.0-0.1); Basophils % 1.6 %; Eosinophils # 0.1 10^3/uL (0.0-0.8); Eosinophils % 2.9 %; Hematocrit 30.5 % (42.0-52.0); Hemoglobin 10.4 g/dL (11.7-16.6); Lymphocytes # 0.9 10^3/uL (0.8-4.8); Lymphocytes % 28.3 %; Mean Corpuscular HGB Conc 34.1 g/dL (30.0-36.0); Mean Corpuscular Hemoglobin 32.1 pg (28.0-34.0); Mean Corpuscular Volume 94.1 fl (80-94); Monocytes # 0.2 10^3/uL (0.2-0.9); Monocytes % 5.8 %; Neutrophils % 61.1 %; Nucleated Red Blood Cells % 0 %; Platelet Count 182 10^3/cmm (130-400); Red Blood Count 3.24 10^6/uL (4.1-5.3); Red Cell Distribution Width 13.6 % (12.1-15.1); White Blood Count 3.1 10^3/uL (4.0-10.0)
[2021-08-16 11:09] LABS: Alanine Aminotransferase 13 U/L (0-41); Albumin Level 3.5 g/dL (3.5-5.2); Alkaline Phosphatase 107 IU/L (40-130); Anion Gap 13.7 (5-19); Aspartate Amino Transferase 14 U/L (0-40); Blood Urea Nitrogen 12 mg/dL (8-23); Calcium 7.8 mg/dL (8.5-10.5); Carbon Dioxide 21 mmol/L (22-29); Chloride 106 mmol/L (98-107); Globulin 2.6 g/dL (1.3-4.6); Glucose 96 mg/dL (65-115); Osmolality Calculated 284 mOsm/kg (285-295); Potassium 3.7 mmol/L (3.5-5.1); Sodium 137 mmol/L (136-145); Total Bilirubin 0.4 mg/dL (0.15-1.2); Total Protein 6.1 g/dL (6.6-8.7)
[2021-08-16 12:59] LABS: Cancer Antigen 19 9 46.81 U/mL (0-35)
--- NOTE | 2021-08-19 17:17 | ONC FU_ITS ---
Dr. Acosta Patient Follow-Up Note Patient: Misbah Springer Unit #: [id number]: 1945 Dicatated By: vEaristo Acosta M.D.Date of Visit:Aug 19, 2021 Onc Med Follow-up/Prog Note Chief Complaint: Pancreatic cancer. 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 By clinical evaluation, his disease appeared to be stage IIA (T3, N0, M0) at initial diagnosis in February 2018. He has had subsequent progression to stage IV. 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 His symptoms began in December 2017 with a sensation of fullness in the abdominal area. He then lost appetite and began losing weight. He also got very weak. His CT of the abdomen on 02/15/2018 showed pancreatic ductal dilatation and common bile duct dilatation, the latter measuring up to 22 mm, with abrupt termination secondary to a pancreatic head mass. The mass appeared to measure 3.5 x 3.3 cm. The exam was limited to due lack of IV contrast. He was referred to Dr. Cain Joseph at [facility] in [place] where he underwent ERCP with placement of biliary stent on 03/08/2018. The ERCP showed roughly 3 cm stricture of the distal bile duct with dilatation of the extrahepatic biliary tree proximal to that area. Upper EUS at that time showed a 3.6 x 3.7 hypoechoic mass at the level of the head of the pancreas with obstruction of the extrahepatic bile duct. The mass did not appear to involve the visualized portions of the celiac artery or SMA, but it was noted to abut the portal vein. A 12 x 9 mm hyperechoic nodule was noted in the left lobe of the liver. He underwent FNA of both the pancreatic head mass and the hepatic lesion. Pathology on the liver showed benign hepatocytes with no malignant cells identified. The pancreas showed atypical cells, but no definite malignancy. He had surgical oncology consultation with Dr. Trev Marquez at [facility] on 03/29/2018. CT abdomen/pelvis at that time showed mass in the head of the pancreas measuring approximately 3.8 cm. It was noted to infiltrate the surrounding fat in the pancreaticoduodenal groove. The mass was noted to abut the common hepatic artery along its inferior margin, but it did not appear to be encasing it. It was also noted to abut the inferior margin of the portal vein and the right lateral margin of the geno splenic confluence, but it did not appear to encase vascular structures. The superior mesenteric vein, splenic vein, celiac trunk, splenic artery, and superior mesenteric artery were noted to all be distant from the mass. His recommendation was to initiate chemotherapy following confirmation of tissue diagnosis and then reevaluate for possible surgical resection or chemoradiation. Repeat FNA of the pancreatic head mass on 04/05/2018 was positive for adenocarcinoma. I had seen him initially on 04/20/2018. After discussing options for neoadjuvant chemotherapy, he agreed to begin treatment with a modified FOLFIRINOX regimen. It was administered at a reduced dosage of irinotecan and with omission of the 5-FU bolus. He began cycle 1 of FOLFIRINOX on 04/28/2018. His baseline CA-19-9 level was 515 U/mL. He had no acute toxicity with his treatment. However, at day 10 he was admitted to the hospital after presenting to the emergency room with abdominal pain and fever. He was severely neutropenic, ANC 200. He was treated with Neupogen and broad-spectrum antibiotic coverage, with subsequent recovery. However, during that time he also developed pretty severe diarrhea as well as nausea and anorexia. His clinical course also was complicated by urinary retention. He was discharged home on 05/14/2018 with indwelling Kelly catheter. He was seen for a follow-up visit on 05/24/2018. He still had somewhat marginal performance status, but at that point he was improving. His CA-19-9 level had decreased significantly, to 227 U/mL. Given the fact that he did appear to be showing response to the chemotherapy, we did opt to continue his treatment, but with the regimen changed to modified FOLFOX. He developed some increase in neuropathy with the 1st cycle of FOLFOX, but he otherwise tolerated it well. He was able to continue with the 2nd cycle on 06/07/2018. At that point there was further decrease in the CA-19-9 level to 90 U/mL. He then continued with cycle 3 on 06/22/2018. The CA-19-9 had declined to 44 U/mL. He had followup with Dr. Marquez at [facility] on 07/05/2018. As he appeared to have a good response to the neoadjuvant chemotherapy he was offered the option of undergoing surgical resection. He then underwent pancreaticoduodenectomy on 08/18/2018 with complete resection of the tumor. There was no gross evidence of metastatic disease. Pathology showed just a single focus of residual adenocarcinoma measuring less than 0.1 cm, consistent with near-complete response. There was a residual fibrotic tumor bed extending for approximately 2.1 cm, and there was adjacent high-grade dysplasia. There was no lymphovascular or perineural invasion present. All margins were negative for malignancy. A total of 20 regional lymph nodes were negative for metastatic involvement. Final staging was ypT1a, ypN0. Given the excellent response to the neoadjuvant treatment he was recommended to have additional 4 to 8 cycles of postoperative adjuvant chemotherapy and possibly chemoradiation. He began cycle 1 of postoperative adjuvant chemotherapy with modified FOLFOX on 09/28/2018. He had mild neuropathy symptoms, but no other significant toxicity. He continued with his 2nd postoperative cycle on 10/12/2018, with cycle 3 on 10/26/2018, and with cycle 4 on 11/09/2018. At that point his neuropathy symptoms were getting noticeably worse, and it did opt to stop his chemotherapy after that treatment. He was then followed on observation/expectant management, as he opted not to take chemoradiation. At his follow-up visit in June 2020 his CA 19-9 level had increased to 34 U/mL. A surveillance CT abdomen/pelvis on 07/19/2020 showed residual density in the area of the head of the pancreas measuring 2.92 x 5.90 cm. There was air noted in the biliary system and he was noted to have 3 ventral hernias. There was no obvious metastatic disease. At his follow-up visit on 10/11/2020 he appeared stable clinically. His CA 19-9 level was back down to 29.9 U/mL. His repeat CT abdomen/pelvis on 01/11/2021 showed increasing soft tissue mass at the pancreatic head compared to the 07/19/2020 study. Further evaluation with PET/CT on 01/19/2021 showed an FDG avid soft tissue mass in the precaval region of the upper abdomen measuring 2.5 x 2.0 cm, SUV 6.3, consistent with recurrent malingancy. The pancreatic head was noted to be enlarged with diffuse increased uptake, also suspicious for malignancy. Also noted was internval development of left upper quadrant omental soft tissue implants, SUV 4.9, and multiple FDG positive bilateral mediastinal lymph nodes, likely malignant. A lytic lesion with sclerotic rim in the T9 vertebral body had SUV 4.6, consistent with osseous metastatic disease and a similar lesion was noted in the lateral T2 vertebral body. He was seen for follow-up on 02/14/2021. He was not overtly symptomatic, but given the PET/CT findings, I did recommend that he begin systemic therapy pending outcome of next generation sequencing study. That study was performed by liquid biopsy, and it did show evidence of a BRCA1 mutation at an allelic fraction which was suspicious for germline origin (48.7%). On a subsequent genetic screening study he was confirmed to be heterozygous for a pathogenic BRCA1 mutation ([id number]). Given those findings, I had recommended that he restart chemotherapy with a cisplatin/gemcitabine combination for 4 cycles, with the option to then transition to maintenance therapy with a PARP inhibitor depending on the response. He began cycle 1 of cisplatin/gemcitabine on 04/18/2021. It was complicated by weakness/fatigue and by severe neutropenia, but he recovered uneventfully. He proceeded with his cycle 1 day 15 treatment on 05/02/2021. It was administered with a 20% dose reduction. In the meantime, a scheduled carotid Doppler study on 05/08/2021 showed less than 50% ICA stenosis bilaterally. There was an incidental finding, though, of left jugular vein thrombosis. With that finding, he began anticoagulation with rivaroxaban. He then continued with cycle 2 of cisplatin/gemcitabine on 05/16/2021. Subsequent to that treatment he developed acute urinary retention, requiring placement of Kelly catheter. At that point his chemotherapy was put on hold. Restaging PET/CT on 06/29/2021 showed improvement in the precaval soft tissue lesion with SUV decreased to 4.2, though size was unchanged at 2.4 cm. The diffuse increased pancreatic head uptake had normalized to background, consistent with positive response to therapy. Left upper quadrant soft tissue omental implants appeared modestly improved, SUV decreased to 3.7 from 4.9. Retroperitoneal lymph nodes were subcentimeter in size and FDG negative and previously described mediastinal lymph nodes had FDG activity equivalent to baseline physiologic uptake. Osseous metastatic lesions in the T9 vertebral body and a T2 lytic lesion were noted to be FDG negative. With his having significant treatment-related side effects and with his known BRCA mutation, I opted to stop the chemotherapy and transition him to maintenance olaparib. His other medical illnesses include hypertension, dyslipidemia, hypothyroidism, obstructive sleep apnea, and benign prostatic hypertrophy. He also has a history of seizure. He is a nonsmoker. INTERIM HISTORY: In July 2021 he began maintenance olaparib 300 mg twice daily. He is seen for a follow-up visit. He has now started his second month of maintenance olaparib. Thus far he has been tolerating it without any significant adverse effects. He has been feeling a little bit tired, but he has normal activity. ECOG score is 0. His appetite is good. He has no fever or night sweats. He complains of a nasal drip, but he has not had sore mouth or throat. He does not complain of cough, and he has not been having shortness of breath or chest pain. He currently has no GI or complaints. He does not complain of headache or dizziness, and he has no focal neurologic symptoms. Medications: Euthyrox 1 Tablet (of 88 mcg) Oral daily, Finasteride 1 Tablet (of 5 mg) Oral daily, Lynparza 2 Tablet (of 150 mg) Oral b.i.d., Metoprolol Succinate ER 1.5 (50 mg) Tablet SR 24 HR Oral daily, Tamsulosin HCl 1 Tablet (of 0.4 mg) Capsule Oral at bedtime Allergies: Amoxicillin and Sulfa. Vital Signs: Performed on Aug 19, 2021 08:46 Height - 68.00 in Weight - 187.0 lbs (HIGH) BSA - 1.99 sq.m BMI - 28.43 Temperature - 97.7 F (LOW) Pulse - 76 /min Respiration - 18 /min BP - 110/70 mm(hg) O2 Sat - 99 % Pain - 0 Fatigue - 3 Physical Examination: Constitutional - He looks pretty good generally, Eyes - Sclerae nonicteric. Conjunctivae clear, ENMT - No lesions noted in the oral cavity, Hematologic/Lymphatic - No cervical, clavicular, or axillary adenopathy, Respiratory - Lungs are clear with good air movement bilaterally, Cardiovascular - Heart rhythm is regular. There is no murmur, gallop, or rub noted, Abdomen - Mildly distended but soft. There is a ventral hernia. Liver and spleen are not enlarged. There is no abdominal mass or ascites noted and there is no inguinal adenopathy, Extremities - No edema, Neurologic - No focal neurologic deficits noted. Lab/Imaging: Test performed on Aug 16, 2021 10:32 Sodium 137 mmol/L Potassium 3.7 mmol/L Chloride 106 mmol/L CO2 21 mmol/L Anion Gap 13.7 BUN 12 mg/dL Creatinine 0.8 mg/dL Cr Clearance (Est) 94.8000 mL/min Glucose 96 mg/dL Osmolality - Calculated 284 mOsm/kg Calcium 7.8 mg/dL Protein, Total 6.1 g/dL Albumin 3.5 g/dL Globulin 2.6 g/dL Bilirubin, Total 0.4 mg/dL ALT (SGPT) 13 U/L AST (SGOT) 14 U/L Alkaline Phosphatase 107 IU/L WBC 3.1 10 3/uL RBC 3.24 10 6/uL HGB 10.4 g/dL HCT 30.5 % MCV 94.1 fl MCH 32.1 pg MCHC 34.1 g/dL RDW 13.6 % Platelet Count 182 10 3/cmm MPV 9.0 fL Neutrophils 1.90 10 3/uL Lymphocytes 0.9 10 3/uL Monocytes 0.2 10 3/uL Eosinophils 0.1 10 3/uL Basophils 0.1 10 3/uL Neutrophil % 61.1 % Lymphocyte % 28.3 % Monocyte % 5.8 % Eosinophil % 2.9 % Basophils % 1.6 % NRBC % 0 % CA 19-9 46.81 U/mL Problem List: 1. Adenocarcinoma of the head of the pancreas. By clinical evaluation, his disease appears to be stage IIA (T3, N0, M0) at intial diagnosis in February 2018. He has had subsequent progression to stage IV. He also has been found to be a BRCA1 mutation carrier. 2. Hypertension. 3. Hyperlipidemia. 4. Hypothyroidism. 5. Obstructive sleep apnea. 6. Benign prostatic hypertrophy. 7. He has a history of seizure. Problems Addressed with this Encounter and Plan: 1. Patient with adenocarcinoma of the head of the pancreas. By clinical evaluation, his disease appears to be stage IIA (T3, N0, M0). He underwent ERCP with placement of biliary stent and upper EUS 03/08/2018. The diagnosis was confirmed by repeat FNA of the pancreatic head mass on 04/07/2018. He had a very good response to neoadjuvant chemotherapy with FOLFIRINOX, though it did cause severe toxicities. He had further neoadjuvant chemotherapy with 3 cycles of modified FOLFOX and he then underwent pancreaticoduodenectomy on 08/18/2018. Pathology showed near complete response to the chemotherapy with one focus of residual tumor measuring less than 0.1 cm. The margins were free and there was no involvement in 20 lymph nodes. Pathologic staging was ypT1a, ypN0. He was then given postoperative adjuvant chemotherapy with an additional 4 cycles of modified FOLFOX, completed in October 2018. He was then followed on observation/expectant management, as he declined chemoradiation. As of his follow-up visit in June 2020 there was an increase in his CA 19-9 level up to 34 U/mL. His surveillance CT abdomen/pelvis on 07/19/2020 showed residual density in the area of the head of the pancreas measuring 2.92 x 5.90 cm. There was air noted in the biliary system, and he was noted to have 3 ventral hernias. There was no obvious metastatic disease. As of his follow-up visit in September 2020 his CA 19-9 level was back down to 29.91 U/mL. He continued observation/expectant management. His repeat CT abdomen/pelvis on 01/11/2021 showed further increase in the lobulated mass in the area of the pancreatic head measuring 3.4 x 6.3 cm. The appearance was suspicious for recurrent neoplasm. With those findings had had further evaluation with PET/CT on 01/19/2021 and that study showed FDG uptake in upper abdominal precaval mass, in the area of the pancreatic head, and bilateral mediastinal lymph nodes and in left upper quadrant omental soft tissue implants consistent with recurrence/metastatic disease. Also noted were suspected metastatic lesions in the T2 and T9 vertebral bodies. A next generation sequencing study by liquid biopsy showed evidence of a BRCA1 mutation. Based on the allelic fraction, it was suspicious for a germline mutation. I subsequent genetic screening study he was confirmed to be heterozygous for a BRCA1 mutation. On 04/18/2021 he restarted chemotherapy with cycle 1 of cisplatin/gemcitabine. Toxicities were relatively mild and included fatigue and constipation. He was significantly neutropenic at day 8 with absolute neutrophil count 1200. He recovered uneventfully and he proceeded with his cycle 1 day 15 treatment on 05/02/2021. It was administered with a 20% dose reduction. Despite the reduction, he again became severely neutropenic, though he did recover uneventfully with Neupogen. In the meantime, he was found on scheduled carotid Doppler study to have an incidental finding of left internal jugular vein thrombosis. This was presumed to be Port-A-Cath related. He began on anticoagulation with rivaroxaban. He continued with cycle 2 of cisplatin/gemcitabine on 05/16/2021. That treatment was complicated by acute urinary retention, requiring temporary placement of Kelly catheter. His bladder function subsequently recovered, but he opted to put his chemotherapy on hold. Restaging PET/CT on 06/29/2021 showed improvement in the areas of FDG uptake, including the pancreatic head area, the aortocaval mass, and the retroperitoneal and mediastinal lymph nodes. The bone lesions were FDG negative. With those findings and with his known BRCA1 mutation, I opted to stop the chemotherapy and transition him to maintenance olaparib 300 mg twice daily. Thus far he has been tolerating the olaparib well. He has mild anemia and neutropenia, but he appears to be having no other adverse effects and thus far there appears to be no progression of the pancreatic cancer. As such she continues olaparib 300 mg twice daily. I will continue to monitor his lab studies monthly. He will be scheduled for a follow-up visit in 3 months. Signed By: Evaristo Acosta M.D. <<Signature on File>>
== END 2021-09-13 23:59 | disposition home or self-care (01) ==
LOC: ONCMED 06:05
PROVIDERS: PCP Internal Medicine; Visit Provider Internal Medicine Medical Oncology
DX: C25.0 Malignant neoplasm of head of pancreas (principal); I10 Essential (primary) hypertension; E78.5 Hyperlipidemia, unspecified; E03.9 Hypothyroidism, unspecified; G47.33 Obstructive sleep apnea (adult) (pediatric); N40.0 Benign prostatic hyperplasia without lower urinary tract symptoms; D64.9 Anemia, unspecified; D70.9 Neutropenia, unspecified; Z86.69 Personal history of other diseases of the nervous system and sense organs; Z79.01 Long term (current) use of anticoagulants; Z79.899 Other long term (current) drug therapy
CPT/HCPCS: 36591; 80053; 85025; 86301; 99214

== ENCOUNTER → 2021-10-08 08:21 | Outpatient (BNVA) | payer MEDICARE, OTHER, SELFPAY | PROVIDERS: PCP Internal Medicine; Visit Provider Urology | DX: N40.1 Benign prostatic hyperplasia with lower urinary tract symptoms (principal) | CPT/HCPCS: 81003 ==

== ENCOUNTER 2021-10-14 08:08 | Outpatient (RCR) | payer MEDICARE, OTHER, SELFPAY ==
[2021-09-23 13:52] LABS: Basophils % 1.1 %; Eosinophils # 0.1 10^3/uL (0.0-0.8); Eosinophils % 3.6 %; Lymphocytes # 1.1 10^3/uL (0.8-4.8); Lymphocytes % 31.4 %; Mean Corpuscular HGB Conc 34.3 g/dL (30.0-36.0); Mean Corpuscular Hemoglobin 29.9 pg (28.0-34.0); Mean Corpuscular Volume 87.2 fl (80-94); Mean Platelet Volume 10.3 fL (7.4-10.4); Monocytes # 0.3 10^3/uL (0.2-0.9); Monocytes % 7.4 %; Neutrophils # 2.04 10^3/uL (1.8-7.7); Neutrophils % 56.2 %; Nucleated Red Blood Cells % 0 %; Platelet Count 176 10^3/cmm (130-400); Red Blood Count 2.34 10^6/uL (4.1-5.3); Red Cell Distribution Width 13.6 % (12.1-15.1); White Blood Count 3.6 10^3/uL (4.0-10.0)
[2021-09-23 14:15] LABS: Hematocrit 20.4 % (42.0-52.0)
[2021-09-23 14:24] LABS: Alanine Aminotransferase 21 U/L (0-41); Albumin Level 3.9 g/dL (3.5-5.2); Alkaline Phosphatase 142 IU/L (40-130); Anion Gap 15.8 (5-19); Aspartate Amino Transferase 21 U/L (0-40); Blood Urea Nitrogen 15 mg/dL (8-23); Calcium 8.9 mg/dL (8.5-10.5); Cancer Antigen 19 9 21.49 U/mL (0-35); Carbon Dioxide 20 mmol/L (22-29); Chloride 103 mmol/L (98-107); Globulin 2.5 g/dL (1.3-4.6); Glucose 86 mg/dL (65-115); Osmolality Calculated 280 mOsm/kg (285-295); Potassium 3.8 mmol/L (3.5-5.1); Sodium 135 mmol/L (136-145); Total Bilirubin 0.6 mg/dL (0.15-1.2); Total Protein 6.4 g/dL (6.6-8.7)
[2021-09-24] VITALS (11 sets, daily range): BP systolic 98–117; BP diastolic 60–75; PULSE 64–72; RESP 16–18; TEMP 36.3–36.8; O2SAT 98–99
[2021-09-24 12:40] LABS: Iron 243 ug/dL (59-158)
[2021-09-24 12:48] LABS: Percent Saturation 99.5 % (20-50); Total Iron Binding Capacity 244 mcg/dl; Unsaturated Iron Binding 1 ug/dL (112-347)
[2021-09-24 14:43] LABS: Ferritin 722 ng/mL (30-400); Iron 212 ug/dL (59-158)
[2021-09-24 14:45] LABS: Total Iron Binding Capacity 212 mcg/dl; Unsaturated Iron Binding 0 ug/dL (112-347)
[2021-09-24] MEDS: sodium chloride 0.9% 250 ML 999 ML IV (15:26)
[2021-09-24] MEDS: diphenhydrAMINE 25 mg Capsule PO (15:26)
[2021-09-24] MEDS: acetaminophen 325 mg Tablet 650 MG PO (15:26)
[2021-09-24] MEDS: FUROsemide 10 mg/mL SDV 2mL 20 MG IV (16:30)
[2021-10-11 15:06] LABS: Basophils % 0.5 %; Lymphocytes # 0.6 10^3/uL (0.8-4.8); Lymphocytes % 14.4 %; Mean Corpuscular HGB Conc 34.1 g/dL (30.0-36.0); Mean Corpuscular Hemoglobin 30.4 pg (28.0-34.0); Mean Platelet Volume 10.4 fL (7.4-10.4); Monocytes # 0.3 10^3/uL (0.2-0.9); Monocytes % 7.3 %; Neutrophils % 75.8 %; Nucleated Red Blood Cells % 0 %; Platelet Count 231 10^3/cmm (130-400); Red Blood Count 1.91 10^6/uL (4.1-5.3); Red Cell Distribution Width 14.1 % (12.1-15.1); White Blood Count 3.8 10^3/uL (4.0-10.0)
[2021-10-11 15:25] LABS: Hemoglobin 5.8 g/dL (11.7-16.6)
[2021-10-11 15:27] LABS: Slide Review Slide Review Perform
[2021-10-11 15:43] LABS: Alanine Aminotransferase 19 U/L (0-41); Albumin Level 3.9 g/dL (3.5-5.2); Alkaline Phosphatase 159 IU/L (40-130); Anion Gap 17.7 (5-19); Aspartate Amino Transferase 16 U/L (0-40); Blood Urea Nitrogen 16 mg/dL (8-23); Calcium 7.8 mg/dL (8.5-10.5); Carbon Dioxide 19 mmol/L (22-29); Chloride 103 mmol/L (98-107); Globulin 2.5 g/dL (1.3-4.6); Glucose 103 mg/dL (65-115); Osmolality Calculated 283 mOsm/kg (285-295); Potassium 3.7 mmol/L (3.5-5.1); Sodium 136 mmol/L (136-145); Total Bilirubin 0.6 mg/dL (0.15-1.2); Total Protein 6.4 g/dL (6.6-8.7)
[2021-10-14] VITALS (10 sets, daily range): BP systolic 85–116; BP diastolic 48–69; PULSE 59–67; RESP 16–18; TEMP 36.7–37.1; O2SAT 97–100
[2021-10-14 08:40] LABS: Basophils % 0.9 %; Eosinophils # 0.1 10^3/uL (0.0-0.8); Eosinophils % 3.7 %; Lymphocytes # 0.8 10^3/uL (0.8-4.8); Lymphocytes % 25.8 %; Mean Corpuscular HGB Conc 34.3 g/dL (30.0-36.0); Mean Corpuscular Hemoglobin 30.4 pg (28.0-34.0); Mean Corpuscular Volume 88.5 fl (80-94); Monocytes # 0.2 10^3/uL (0.2-0.9); Monocytes % 7.1 %; Neutrophils % 62.2 %; Nucleated Red Blood Cells % 0 %; Platelet Count 223 10^3/cmm (130-400); Red Blood Count 1.91 10^6/uL (4.1-5.3); Red Cell Distribution Width 13.9 % (12.1-15.1); White Blood Count 3.2 10^3/uL (4.0-10.0)
[2021-10-14 08:48] LABS: Hemoglobin 5.8 g/dL (11.7-16.6)
[2021-10-14 08:49] LABS: Hematocrit 16.9 % (42.0-52.0)
[2021-10-14] MEDS: diphenhydrAMINE 25 mg Capsule PO (09:10)
[2021-10-14] MEDS: acetaminophen 325 mg Tablet 650 MG PO (09:10)
[2021-10-14] MEDS: sodium chloride 0.9% 250 ML 999 ML IV (09:10)
[2021-10-14] MEDS: FUROsemide 10 mg/mL SDV 2mL 20 MG IV (10:47)
== END 2021-10-14 23:59 | disposition home or self-care (01) ==
LOC: ONCMED 08:08
PROVIDERS: Internal Medicine Medical Oncology; PCP Internal Medicine; Visit Provider Nurse Practitioner
DX: C25.0 Malignant neoplasm of head of pancreas (principal); D50.9 Iron deficiency anemia, unspecified; Z79.899 Other long term (current) drug therapy
CPT/HCPCS: 36415; 36430; 36591; 80053; 82728; 83540; 83550; 85025; 86301; 86850; 86900; 86920; J1940; J7050; P9016

== ENCOUNTER 2021-11-04 06:40 | Outpatient (RCR) | payer MEDICARE, OTHER, SELFPAY ==
[2021-10-21 13:43] LABS: Basophils % 0.6 %; Eosinophils # 0.1 10^3/uL (0.0-0.8); Eosinophils % 2.3 %; Hematocrit 27.5 % (42.0-52.0); Hemoglobin 8.8 g/dL (11.7-16.6); Lymphocytes # 0.9 10^3/uL (0.8-4.8); Lymphocytes % 26.1 %; Mean Corpuscular Hemoglobin 29.4 pg (28.0-34.0); Mean Platelet Volume 9.8 fL (7.4-10.4); Monocytes # 0.3 10^3/uL (0.2-0.9); Monocytes % 9.3 %; Neutrophils # 2.15 10^3/uL (1.8-7.7); Neutrophils % 60.9 %; Nucleated Red Blood Cells % 0.8 %; Platelet Count 182 10^3/cmm (130-400); Red Blood Count 2.99 10^6/uL (4.1-5.3); Red Cell Distribution Width 18.4 % (12.1-15.1); White Blood Count 3.5 10^3/uL (4.0-10.0)
[2021-10-21 14:01] LABS: Alanine Aminotransferase 17 U/L (0-41); Alkaline Phosphatase 146 IU/L (40-130); Anion Gap 15.6 (5-19); Aspartate Amino Transferase 19 U/L (0-40); Blood Urea Nitrogen 13 mg/dL (8-23); Calcium 8.7 mg/dL (8.5-10.5); Carbon Dioxide 19 mmol/L (22-29); Chloride 106 mmol/L (98-107); Ferritin 594 ng/mL (30-400); Globulin 2.3 g/dL (1.3-4.6); Glucose 71 mg/dL (65-115); Iron 137 ug/dL (59-158); Osmolality Calculated 283 mOsm/kg (285-295); Percent Saturation 54.3 % (20-50); Potassium 3.6 mmol/L (3.5-5.1); Sodium 137 mmol/L (136-145); Total Bilirubin 0.5 mg/dL (0.15-1.2); Total Iron Binding Capacity 252 mcg/dl; Total Protein 6.3 g/dL (6.6-8.7); Unsaturated Iron Binding 115 ug/dL (112-347)
[2021-10-21 14:11] LABS: Lactate Dehydrogenase 168 U/L (135-225)
[2021-10-24 08:31] LABS: Basophils % 0.5 %; Eosinophils # 0.1 10^3/uL (0.0-0.8); Eosinophils % 2.2 %; Hematocrit 27.3 % (42.0-52.0); Hemoglobin 8.8 g/dL (11.7-16.6); Lymphocytes # 0.4 10^3/uL (0.8-4.8); Lymphocytes % 10.6 %; Mean Corpuscular HGB Conc 32.2 g/dL (30.0-36.0); Mean Corpuscular Hemoglobin 30.4 pg (28.0-34.0); Mean Corpuscular Volume 94.5 fl (80-94); Mean Platelet Volume 9.4 fL (7.4-10.4); Monocytes # 0.3 10^3/uL (0.2-0.9); Monocytes % 7.6 %; Neutrophils # 2.91 10^3/uL (1.8-7.7); Neutrophils % 78.8 %; Nucleated Red Blood Cells % 0 %; Platelet Count 147 10^3/cmm (130-400); Red Blood Count 2.89 10^6/uL (4.1-5.3); White Blood Count 3.7 10^3/uL (4.0-10.0)
[2021-10-24 09:12] LABS: LAB Peripheral Smear Sent for Review
[2021-10-28 08:53] LABS: Basophils % 0.6 %; Eosinophils # 0.2 10^3/uL (0.0-0.8); Eosinophils % 4.5 %; Hematocrit 32.5 % (42.0-52.0); Hemoglobin 10.1 g/dL (11.7-16.6); Lymphocytes # 0.8 10^3/uL (0.8-4.8); Lymphocytes % 22.9 %; Mean Corpuscular HGB Conc 31.1 g/dL (30.0-36.0); Mean Corpuscular Hemoglobin 30.4 pg (28.0-34.0); Mean Corpuscular Volume 97.9 fl (80-94); Mean Platelet Volume 9.2 fL (7.4-10.4); Monocytes # 0.3 10^3/uL (0.2-0.9); Monocytes % 7.3 %; Neutrophils # 2.28 10^3/uL (1.8-7.7); Neutrophils % 64.4 %; Nucleated Red Blood Cells % 0 %; Platelet Count 169 10^3/cmm (130-400); Red Blood Count 3.32 10^6/uL (4.1-5.3); Red Cell Distribution Width 21.3 % (12.1-15.1); White Blood Count 3.5 10^3/uL (4.0-10.0)
[2021-11-04 11:06] LABS: Basophils % 0.6 %; Eosinophils # 0.1 10^3/uL (0.0-0.8); Eosinophils % 2.8 %; Hematocrit 33.7 % (42.0-52.0); Hemoglobin 10.5 g/dL (11.7-16.6); Lymphocytes # 1.1 10^3/uL (0.8-4.8); Lymphocytes % 22.9 %; Mean Corpuscular HGB Conc 31.2 g/dL (30.0-36.0); Mean Corpuscular Hemoglobin 30.3 pg (28.0-34.0); Mean Corpuscular Volume 97.1 fl (80-94); Mean Platelet Volume 9.2 fL (7.4-10.4); Monocytes # 0.4 10^3/uL (0.2-0.9); Monocytes % 8.4 %; Neutrophils # 3.03 10^3/uL (1.8-7.7); Neutrophils % 64.9 %; Nucleated Red Blood Cells % 0 %; Platelet Count 172 10^3/cmm (130-400); Red Blood Count 3.47 10^6/uL (4.1-5.3); Red Cell Distribution Width 19.8 % (12.1-15.1); White Blood Count 4.7 10^3/uL (4.0-10.0)
[2021-11-04 11:28] LABS: Alanine Aminotransferase 16 U/L (0-41); Alkaline Phosphatase 145 IU/L (40-130); Anion Gap 14.6 (5-19); Aspartate Amino Transferase 21 U/L (0-40); Blood Urea Nitrogen 15 mg/dL (8-23); Calcium 8.7 mg/dL (8.5-10.5); Cancer Antigen 19 9 43.73 U/mL (0-35); Carbon Dioxide 21 mmol/L (22-29); Chloride 104 mmol/L (98-107); Globulin 2.9 g/dL (1.3-4.6); Glucose 106 mg/dL (65-115); Osmolality Calculated 281 mOsm/kg (285-295); Potassium 4.6 mmol/L (3.5-5.1); Sodium 135 mmol/L (136-145); Total Bilirubin 0.7 mg/dL (0.15-1.2); Total Protein 6.9 g/dL (6.6-8.7)
--- NOTE | 2021-11-07 07:34 | ONC FU_ITS ---
Dr. Acosta Patient Follow-Up Note Patient: Misbah Springer Unit #: [id number]: 1945 Dicatated By: Evaristo Acosta M.D.Date of Visit:Nov 04, 2021 Onc Med Follow-up/Prog Note Chief Complaint: Pancreatic cancer. History of Present Illness: This is a 76 year-old man with adenocarcinoma of the head of the pancreas. By clinical evaluation, his disease appeared to be stage IIA (T3, N0, M0) at initial diagnosis in February 2018. He has had subsequent progression to stage IV. 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 His symptoms began in December 2017 with a sensation of fullness in the abdominal area. He then lost appetite and began losing weight. He also got very weak. His CT of the abdomen on 02/15/2018 showed pancreatic ductal dilatation and common bile duct dilatation, the latter measuring up to 22 mm, with abrupt termination secondary to a pancreatic head mass. The mass appeared to measure 3.5 x 3.3 cm. The exam was limited to due lack of IV contrast. He was referred to Dr. Cain Jsoeph at [facility] in [place] where he underwent ERCP with placement of biliary stent on 03/08/2018. The ERCP showed roughly 3 cm stricture of the distal bile duct with dilatation of the extrahepatic biliary tree proximal to that area. Upper EUS at that time showed a 3.6 x 3.7 hypoechoic mass at the level of the head of the pancreas with obstruction of the extrahepatic bile duct. The mass did not appear to involve the visualized portions of the celiac artery or SMA, but it was noted to abut the portal vein. A 12 x 9 mm hyperechoic nodule was noted in the left lobe of the liver. He underwent FNA of both the pancreatic head mass and the hepatic lesion. Pathology on the liver showed benign hepatocytes with no malignant cells identified. The pancreas showed atypical cells, but no definite malignancy. He had surgical oncology consultation with Dr. Trev Marquez at [facility] on 03/29/2018. CT abdomen/pelvis at that time showed mass in the head of the pancreas measuring approximately 3.8 cm. It was noted to infiltrate the surrounding fat in the pancreaticoduodenal groove. The mass was noted to abut the common hepatic artery along its inferior margin, but it did not appear to be encasing it. It was also noted to abut the inferior margin of the portal vein and the right lateral margin of the geno splenic confluence, but it did not appear to encase vascular structures. The superior mesenteric vein, splenic vein, celiac trunk, splenic artery, and superior mesenteric artery were noted to all be distant from the mass. His recommendation was to initiate chemotherapy following confirmation of tissue diagnosis and then reevaluate for possible surgical resection or chemoradiation. Repeat FNA of the pancreatic head mass on 04/05/2018 was positive for adenocarcinoma. I had seen him initially on 04/20/2018. After discussing options for neoadjuvant chemotherapy, he agreed to begin treatment with a modified FOLFIRINOX regimen. It was administered at a reduced dosage of irinotecan and with omission of the 5-FU bolus. He began cycle 1 of FOLFIRINOX on 04/28/2018. His baseline CA-19-9 level was 515 U/mL. He had no acute toxicity with his treatment. However, at day 10 he was admitted to the hospital after presenting to the emergency room with abdominal pain and fever. He was severely neutropenic, ANC 200. He was treated with Neupogen and broad-spectrum antibiotic coverage, with subsequent recovery. However, during that time he also developed pretty severe diarrhea as well as nausea and anorexia. His clinical course also was complicated by urinary retention. He was discharged home on 05/14/2018 with indwelling Kelly catheter. He was seen for a follow-up visit on 05/24/2018. He still had somewhat marginal performance status, but at that point he was improving. His CA-19-9 level had decreased significantly, to 227 U/mL. Given the fact that he did appear to be showing response to the chemotherapy, we did opt to continue his treatment, but with the regimen changed to modified FOLFOX. He developed some increase in neuropathy with the 1st cycle of FOLFOX, but he otherwise tolerated it well. He was able to continue with the 2nd cycle on 06/07/2018. At that point there was further decrease in the CA-19-9 level to 90 U/mL. He then continued with cycle 3 on 06/22/2018. The CA-19-9 had declined to 44 U/mL. He had followup with Dr. Marquez at [facility] on 07/05/2018. As he appeared to have a good response to the neoadjuvant chemotherapy he was offered the option of undergoing surgical resection. He then underwent pancreaticoduodenectomy on 08/18/2018 with complete resection of the tumor. There was no gross evidence of metastatic disease. Pathology showed just a single focus of residual adenocarcinoma measuring less than 0.1 cm, consistent with near-complete response. There was a residual fibrotic tumor bed extending for approximately 2.1 cm, and there was adjacent high-grade dysplasia. There was no lymphovascular or perineural invasion present. All margins were negative for malignancy. A total of 20 regional lymph nodes were negative for metastatic involvement. Final staging was ypT1a, ypN0. Given the excellent response to the neoadjuvant treatment he was recommended to have additional 4 to 8 cycles of postoperative adjuvant chemotherapy and possibly chemoradiation. He began cycle 1 of postoperative adjuvant chemotherapy with modified FOLFOX on 09/28/2018. He had mild neuropathy symptoms, but no other significant toxicity. He continued with his 2nd postoperative cycle on 10/12/2018, with cycle 3 on 10/26/2018, and with cycle 4 on 11/09/2018. At that point his neuropathy symptoms were getting noticeably worse, and it did opt to stop his chemotherapy after that treatment. He was then followed on observation/expectant management, as he opted not to take chemoradiation. At his follow-up visit in June 2020 his CA 19-9 level had increased to 34 U/mL. A surveillance CT abdomen/pelvis on 07/19/2020 showed residual density in the area of the head of the pancreas measuring 2.92 x 5.90 cm. There was air noted in the biliary system and he was noted to have 3 ventral hernias. There was no obvious metastatic disease. At his follow-up visit on 10/11/2020 he appeared stable clinically. His CA 19-9 level was back down to 29.9 U/mL. His repeat CT abdomen/pelvis on 01/11/2021 showed increasing soft tissue mass at the pancreatic head compared to the 07/19/2020 study. Further evaluation with PET/CT on 01/19/2021 showed an FDG avid soft tissue mass in the precaval region of the upper abdomen measuring 2.5 x 2.0 cm, SUV 6.3, consistent with recurrent malingancy. The pancreatic head was noted to be enlarged with diffuse increased uptake, also suspicious for malignancy. Also noted was internval development of left upper quadrant omental soft tissue implants, SUV 4.9, and multiple FDG positive bilateral mediastinal lymph nodes, likely malignant. A lytic lesion with sclerotic rim in the T9 vertebral body had SUV 4.6, consistent with osseous metastatic disease and a similar lesion was noted in the lateral T2 vertebral body. He was seen for follow-up on 02/14/2021. He was not overtly symptomatic, but given the PET/CT findings, I did recommend that he begin systemic therapy pending outcome of next generation sequencing study. That study was performed by liquid biopsy, and it did show evidence of a BRCA1 mutation at an allelic fraction which was suspicious for germline origin (48.7%). On a subsequent genetic screening study he was confirmed to be heterozygous for a pathogenic BRCA1 mutation ([id number]). Given those findings, I had recommended that he restart chemotherapy with a cisplatin/gemcitabine combination for 4 cycles, with the option to then transition to maintenance therapy with a PARP inhibitor depending on the response. He began cycle 1 of cisplatin/gemcitabine on 04/18/2021. It was complicated by weakness/fatigue and by severe neutropenia, but he recovered uneventfully. He proceeded with his cycle 1 day 15 treatment on 05/02/2021. It was administered with a 20% dose reduction. In the meantime, a scheduled carotid Doppler study on 05/08/2021 showed less than 50% ICA stenosis bilaterally. There was an incidental finding, though, of left jugular vein thrombosis. With that finding, he began anticoagulation with rivaroxaban. He then continued with cycle 2 of cisplatin/gemcitabine on 05/16/2021. Subsequent to that treatment he developed acute urinary retention, requiring placement of Kelly catheter. At that point his chemotherapy was put on hold. Restaging PET/CT on 06/29/2021 showed improvement in the precaval soft tissue lesion with SUV decreased to 4.2, though size was unchanged at 2.4 cm. The diffuse increased pancreatic head uptake had normalized to background, consistent with positive response to therapy. Left upper quadrant soft tissue omental implants appeared modestly improved, SUV decreased to 3.7 from 4.9. Retroperitoneal lymph nodes were subcentimeter in size and FDG negative and previously described mediastinal lymph nodes had FDG activity equivalent to baseline physiologic uptake. Osseous metastatic lesions in the T9 vertebral body and a T2 lytic lesion were noted to be FDG negative. With his having significant treatment-related side effects and with his known BRCA mutation, I opted to stop the chemotherapy and transition him to maintenance olaparib. His other medical illnesses include hypertension, dyslipidemia, hypothyroidism, obstructive sleep apnea, and benign prostatic hypertrophy. He also has a history of seizure. He is a nonsmoker. INTERIM HISTORY: In July 2021 he began maintenance olaparib 300 mg twice daily. As of his follow-up visit on 08/19/2021 he had mild anemia and neutropenia, but he was otherwise tolerating it well, and he continued the olaparib at the same dosage. As of 09/24/2021 his hemoglobin had dropped to 7.0 g, and he required PRBC transfusion. A specific cause for the drop in his hemoglobin was not determined. His stool was heme-negative and he did not appear to be hemolyzing. As of 10/14/2021 he again required PRBC transfusion with his hemoglobin dropping to 5.8 g. At that point the olaparib was discontinued. He is seen for a follow-up visit. He is feeling better now. He still has some fatigue, and is energy level has improved. ECOG score is 1. His appetite is also getting better, and he has been eating more. He does not have fever or night sweats. He had a cold or flulike illness last week, but he says it is better now. He has not had sore mouth or throat. He has a little bit of cough. He does not complain of shortness of breath or chest pain. He has no GI complaints now other than mild constipation, which comes and goes. Bladder function has been okay. He has no significant joint or bone pain. He does not complain of headache or dizziness, and he has no focal neurologic symptoms. Medications: Euthyrox 1 Tablet (of 88 mcg) Oral daily, Finasteride 1 Tablet (of 5 mg) Oral daily, Lynparza 2 Tablet (of 150 mg) Oral b.i.d., Metoprolol Succinate ER 1.5 (50 mg) Tablet SR 24 HR Oral daily, Tamsulosin HCl 1 Tablet (of 0.4 mg) Capsule Oral at bedtime Allergies: Amoxicillin and Sulfa. Vital Signs: Performed on Nov 04, 2021 12:35 Height - 68.00 in Weight - 181.8 lbs (LOW) BSA - 1.96 sq.m BMI - 27.64 Temperature - 97.4 F (LOW) Pulse - 73 /min Respiration - 16 /min BP - 117/76 mm(hg) O2 Sat - 98 % Pain - 0 Fatigue - 1 Physical Examination: Constitutional - He appears somewhat weak generally, Eyes - Sclerae nonicteric. Conjunctivae clear, ENMT - No lesions noted in the oral cavity, Hematologic/Lymphatic - No cervical, clavicular, or axillary adenopathy, Respiratory - Lungs are clear with good air movement bilaterally, Cardiovascular - Heart rhythm is regular. There is no murmur, gallop, or rub noted, Abdomen - Mildly distended but soft. There is a ventral hernia. Liver and spleen are not enlarged. There is no abdominal mass or ascites noted and there is no inguinal adenopathy, Extremities - No edema, Neurologic - No focal neurologic deficits noted. Lab/Imaging: Test performed on Nov 04, 2021 10:50 Sodium 135 mmol/L Potassium 4.6 mmol/L Chloride 104 mmol/L CO2 21 mmol/L Anion Gap 14.6 BUN 15 mg/dL Creatinine 0.7 mg/dL Cr Clearance (Est) 106.6800 mL/min Glucose 106 mg/dL Osmolality - Calculated 281 mOsm/kg Calcium 8.7 mg/dL Protein, Total 6.9 g/dL Albumin 4.0 g/dL Globulin 2.9 g/dL Bilirubin, Total 0.7 mg/dL ALT (SGPT) 16 U/L AST (SGOT) 21 U/L Alkaline Phosphatase 145 IU/L WBC 4.7 10 3/uL RBC 3.47 10 6/uL HGB 10.5 g/dL HCT 33.7 % MCV 97.1 fl MCH 30.3 pg MCHC 31.2 g/dL RDW 19.8 % Platelet Count 172 10 3/cmm MPV 9.2 fL Neutrophils 3.03 10 3/uL Lymphocytes 1.1 10 3/uL Monocytes 0.4 10 3/uL Eosinophils 0.1 10 3/uL Basophils 0.0 10 3/uL Neutrophil % 64.9 % Lymphocyte % 22.9 % Monocyte % 8.4 % Eosinophil % 2.8 % Basophils % 0.6 % NRBC % 0 % CA 19-9 43.73 U/mL Problem List: 1. Adenocarcinoma of the head of the pancreas. By clinical evaluation, his disease appears to be stage IIA (T3, N0, M0) at intial diagnosis in February 2018. He has had subsequent progression to stage IV. He also has been found to be a BRCA1 mutation carrier. 2. Hypertension. 3. Hyperlipidemia. 4. Hypothyroidism. 5. Obstructive sleep apnea. 6. Benign prostatic hypertrophy. 7. He has a history of seizure. 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 By clinical evaluation, his disease appears to be stage IIA (T3, N0, M0). He underwent ERCP with placement of biliary stent and upper EUS 03/08/2018. The diagnosis was confirmed by repeat FNA of the pancreatic head mass on 04/07/2018. He had a very good response to neoadjuvant chemotherapy with FOLFIRINOX, though it did cause severe toxicities. He had further neoadjuvant chemotherapy with 3 cycles of modified FOLFOX and he then underwent pancreaticoduodenectomy on 08/18/2018. Pathology showed near complete response to the chemotherapy with one focus of residual tumor measuring less than 0.1 cm. The margins were free and there was no involvement in 20 lymph nodes. Pathologic staging was ypT1a, ypN0. He was then given postoperative adjuvant chemotherapy with an additional 4 cycles of modified FOLFOX, completed in October 2018. He was then followed on observation/expectant management, as he declined chemoradiation. As of his follow-up visit in June 2020 there was an increase in his CA 19-9 level up to 34 U/mL. His surveillance CT abdomen/pelvis on 07/19/2020 showed residual density in the area of the head of the pancreas measuring 2.92 x 5.90 cm. There was air noted in the biliary system, and he was noted to have 3 ventral hernias. There was no obvious metastatic disease. As of his follow-up visit in September 2020 his CA 19-9 level was back down to 29.91 U/mL. He continued observation/expectant management. His repeat CT abdomen/pelvis on 01/11/2021 showed further increase in the lobulated mass in the area of the pancreatic head measuring 3.4 x 6.3 cm. The appearance was suspicious for recurrent neoplasm. With those findings had had further evaluation with PET/CT on 01/19/2021 and that study showed FDG uptake in upper abdominal precaval mass, in the area of the pancreatic head, and bilateral mediastinal lymph nodes and in left upper quadrant omental soft tissue implants consistent with recurrence/metastatic disease. Also noted were suspected metastatic lesions in the T2 and T9 vertebral bodies. A next generation sequencing study by liquid biopsy showed evidence of a BRCA1 mutation. Based on the allelic fraction, it was suspicious for a germline mutation. I subsequent genetic screening study he was confirmed to be heterozygous for a BRCA1 mutation. On 04/18/2021 he restarted chemotherapy with cycle 1 of cisplatin/gemcitabine. Toxicities were relatively mild and included fatigue and constipation. He was significantly neutropenic at day 8 with absolute neutrophil count 1200. He recovered uneventfully and he proceeded with his cycle 1 day 15 treatment on 05/02/2021. It was administered with a 20% dose reduction. Despite the reduction, he again became severely neutropenic, though he did recover uneventfully with Neupogen. In the meantime, he was found on scheduled carotid Doppler study to have an incidental finding of left internal jugular vein thrombosis. This was presumed to be Port-A-Cath related. He began on anticoagulation with rivaroxaban. He continued with cycle 2 of cisplatin/gemcitabine on 05/16/2021. That treatment was complicated by acute urinary retention, requiring temporary placement of Kelly catheter. His bladder function subsequently recovered, but he opted to put his chemotherapy on hold. Restaging PET/CT on 06/29/2021 showed improvement in the areas of FDG uptake, including the pancreatic head area, the aortocaval mass, and the retroperitoneal and mediastinal lymph nodes. The bone lesions were FDG negative. With those findings and with his known BRCA1 mutation, I opted to stop the chemotherapy and transition him to maintenance olaparib 300 mg twice daily. As of his follow-up visit in August 2021 he had a mild anemia and neutropenia, but he is otherwise tolerating the olaparib with no adverse effects. However, by September the anemia had worsened to the point that he required PRBC transfusion on 2 occasions. The anemia was presumed to be treatment related, as he had no evidence of blood loss or hemolysis. He has been off the olaparib since the beginning of October, and he is feeling better. He will now remain off treatment. He will be scheduled for a follow-up visit with restaging CT scans in 1 month. Signed By: Evaristo Acosta M.D. <<Signature on File>>
== END 2021-11-11 23:59 | disposition home or self-care (01) ==
LOC: ONCMED 06:40
PROVIDERS: PCP Internal Medicine; Visit Provider Internal Medicine Medical Oncology
DX: C25.0 Malignant neoplasm of head of pancreas (principal); I10 Essential (primary) hypertension; E78.5 Hyperlipidemia, unspecified; E03.9 Hypothyroidism, unspecified; G47.33 Obstructive sleep apnea (adult) (pediatric); N40.0 Benign prostatic hyperplasia without lower urinary tract symptoms; Z86.69 Personal history of other diseases of the nervous system and sense organs; Z79.899 Other long term (current) drug therapy; Z92.21 Personal history of antineoplastic chemotherapy
CPT/HCPCS: 36591; 80053; 82274; 82728; 83010; 83540; 83550; 83615; 85025; 85045; 86301; 99214

== ENCOUNTER 2021-11-21 09:33 | Outpatient (CLI) | payer MEDICARE, OTHER, SELFPAY ==
--- NOTE | 2021-11-21 09:44 | CT_ITS ---
WS: [id number] CT CHEST, ABDOMEN AND PELVIS WITH CONTRAST HISTORY: MALIGNANT NEOPLASM OF HEAD OF PANCREAS, prior Whipple procedure. TECHNIQUE: Contiguous 5 mm axial imaging performed through the chest, abdomen and pelvis IV contrast, oral contrast has been provided. Coronal and sagittal reformats chest. Coronal and sagittal reformat s through the abdomen and pelvis. All CT scans at [facility] use at least one of these dose o ptimization techniques: automated exposure control; mA and/or kV adjustment per patient size (include s targeted exams where dose is matched to clinical indication); or iterative reconstruction. CONTRAST: Omnipaque 300; 95 mL IV. DLP: 1646.75 mGy.cm COMPARISON: PET CT 06/29/2021 and 01/11/2021. Chest CT: There are several very small, 2 to 4 mm nodules noted bilaterally predominantly in the uppe r lobes. No dedicated prior chest CT is available. Low resolution PET/CT imaging is reviewed. These n odules are not definitely present. These may represent early metastatic sites. No pneumonia. There ar e a few small benign appearing mediastinal and hilar and axillary lymph nodes. No enlarging lymph nod es. Heart size is normal. Mild atherosclerotic changes within the aorta. Normal size pulmonary artery . LEFT subclavian Port-A-Cath. Abdomen CT: Liver is normal size. There is a very small low-attenuation nodule in the in the anterior liver measuring 9 mm, seen on image 15 of series 5. This may have been present on the prior studies but better seen today and slightly increased in size. Portal vein is patent. Pneumobilia is stable. P rior cholecystectomy. Numerous granulomata within the spleen. Patient is status post Whipple's proced ure. Resection of the pancreatic head and body to the midline. Proximal small bowel is closely associ ated with the resection site of the pancreatic head. No recurrent mass is identified. No adrenal mass . Mild atherosclerosis aorta with no aneurysm. Kidneys are normally enhancing. No solid mass. No asci charito or adenopathy is identified. There is a midline ventral abdominal wall hernia. There are 2 hernia sites both supraumbilical which contain nonobstructed loops of small bowel. There is a fat-containin g umbilical hernia. There are small lymph nodes at the GE junction which are not increasing in size. No GI tract obstruction. Mild soft tissue thickening at the GE junction may be related to gastritis o r under distention. Normal appendix. Numerous diverticula. Again noted is the omental implant in the LEFT upper quadrant which was positive on the PET/CT from 01/19/2021. No significant increase in size a nd may be treated implant. Pelvic CT: Moderate enlargement of the prostate gland encroaching into the urinary bladder. Normally distended urinary bladder with mild wall thickening. No free fluid or adenopathy in the pelvis. L5 anterolisthesis by 5 mm. There are several small sclerotic foci within the bones of the pelvis whi ch have been present on prior studies and probably benign bone islands. CT/CT chest abd pel w con* IMPRESSION: 1. There are multiple, 2 to 4 mm indeterminate nodules within both lungs. Thes e have not been identified on the prior PET/CT imaging but may be too small to visualize. Recommend follow-up CT of the chest in 3 months with contrast. 2. Status post resection of the pancreatic head. No recurrent mass at the panc reatic head resection site. 3. 9 mm low-attenuation nodule in the LEFT lobe of the liver. May have been pr esent on prior studies but better seen today. This should also be reevaluated i n 3 months to evaluate for developing metastatic lesion. Follow-up at the same time as a chest CT. 4. Prior cholecystectomy and pneumobilia, stable. 5. LEFT upper abdomen omental implant was positive on a prior PET/CT but not i ncreased in size and may be treated disease. No new omental implants are identi fied. 6. Umbilical and supraumbilical hernias with no obstruction of the small bowel . 7. Prostate gland enlargement. 8. No mediastinal or hilar adenopathy. 9. Mild thickening involving the fundus of the stomach. Could be due to underd istention.
[2021-11-21] MEDS: iohexol 300 mg/mL 50 mL Btl PO (09:56)
[2021-11-21] MEDS: iohexol 300 mg/mL 100 mL Btl IV (11:09)
== END 2021-11-21 09:34 | disposition home or self-care (01) ==
LOC: RAD 09:36
PROVIDERS: PCP Internal Medicine; Visit Provider Internal Medicine Medical Oncology
DX: C25.0 Malignant neoplasm of head of pancreas (principal); R91.8 Other nonspecific abnormal finding of lung field; Z98.890 Other specified postprocedural states; N40.0 Benign prostatic hyperplasia without lower urinary tract symptoms; K42.9 Umbilical hernia without obstruction or gangrene; Z90.49 Acquired absence of other specified parts of digestive tract
CPT/HCPCS: 71260; 74177

== ENCOUNTER 2021-12-03 09:15 | Outpatient (RCR) | payer MEDICARE, OTHER, SELFPAY ==
[2021-12-03 09:42] LABS: Basophils % 0.9 %; Eosinophils # 0.2 10^3/uL (0.0-0.8); Eosinophils % 3.8 %; Hematocrit 37.9 % (42.0-52.0); Hemoglobin 12.4 g/dL (11.7-16.6); Lymphocytes # 1.1 10^3/uL (0.8-4.8); Lymphocytes % 26.8 %; Mean Corpuscular HGB Conc 32.7 g/dL (30.0-36.0); Mean Corpuscular Hemoglobin 31.2 pg (28.0-34.0); Mean Corpuscular Volume 95.2 fl (80-94); Mean Platelet Volume 9.4 fL (7.4-10.4); Monocytes # 0.4 10^3/uL (0.2-0.9); Monocytes % 8.5 %; Neutrophils # 2.52 10^3/uL (1.8-7.7); Neutrophils % 59.8 %; Nucleated Red Blood Cells % 0 %; Platelet Count 151 10^3/cmm (130-400); Red Blood Count 3.98 10^6/uL (4.1-5.3); White Blood Count 4.2 10^3/uL (4.0-10.0)
[2021-12-03 10:10] LABS: Alanine Aminotransferase 18 U/L (0-41); Albumin Level 3.7 g/dL (3.5-5.2); Alkaline Phosphatase 134 IU/L (40-130); Anion Gap 13.1 (5-19); Aspartate Amino Transferase 23 U/L (0-40); Blood Urea Nitrogen 12 mg/dL (8-23); Calcium 9.1 mg/dL (8.5-10.5); Cancer Antigen 19 9 26.94 U/mL (0-35); Carbon Dioxide 23 mmol/L (22-29); Chloride 104 mmol/L (98-107); Globulin 3.3 g/dL (1.3-4.6); Glucose 129 mg/dL (65-115); Osmolality Calculated 283 mOsm/kg (285-295); Potassium 4.1 mmol/L (3.5-5.1); Sodium 136 mmol/L (136-145); Total Bilirubin 0.4 mg/dL (0.15-1.2)
--- NOTE | 2021-12-07 08:50 | ONC FU_ITS ---
Dr. Acosta Patient Follow-Up Note Patient: Misbah Springer Unit #: [id number]: 1945 Dicatated By: Evaristo Acosta M.D.Date of Visit:Dec 03, 2021 Onc Med Follow-up/Prog Note Chief Complaint: Pancreatic cancer. History of Present Illness: This is a 76 year-old man with adenocarcinoma of the head of the pancreas. By clinical evaluation, his disease appeared to be stage IIA (T3, N0, M0) at initial diagnosis in February 2018. He has had subsequent progression to stage IV. 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 His symptoms began in December 2017 with a sensation of fullness in the abdominal area. He then lost appetite and began losing weight. He also got very weak. His CT of the abdomen on 02/15/2018 showed pancreatic ductal dilatation and common bile duct dilatation, the latter measuring up to 22 mm, with abrupt termination secondary to a pancreatic head mass. The mass appeared to measure 3.5 x 3.3 cm. The exam was limited to due lack of IV contrast. He was referred to Dr. Cain Joseph at [facility] in [place] where he underwent ERCP with placement of biliary stent on 03/08/2018. The ERCP showed roughly 3 cm stricture of the distal bile duct with dilatation of the extrahepatic biliary tree proximal to that area. Upper EUS at that time showed a 3.6 x 3.7 hypoechoic mass at the level of the head of the pancreas with obstruction of the extrahepatic bile duct. The mass did not appear to involve the visualized portions of the celiac artery or SMA, but it was noted to abut the portal vein. A 12 x 9 mm hyperechoic nodule was noted in the left lobe of the liver. He underwent FNA of both the pancreatic head mass and the hepatic lesion. Pathology on the liver showed benign hepatocytes with no malignant cells identified. The pancreas showed atypical cells, but no definite malignancy. He had surgical oncology consultation with Dr. Trev Marquez at [facility] on 03/29/2018. CT abdomen/pelvis at that time showed mass in the head of the pancreas measuring approximately 3.8 cm. It was noted to infiltrate the surrounding fat in the pancreaticoduodenal groove. The mass was noted to abut the common hepatic artery along its inferior margin, but it did not appear to be encasing it. It was also noted to abut the inferior margin of the portal vein and the right lateral margin of the geno splenic confluence, but it did not appear to encase vascular structures. The superior mesenteric vein, splenic vein, celiac trunk, splenic artery, and superior mesenteric artery were noted to all be distant from the mass. His recommendation was to initiate chemotherapy following confirmation of tissue diagnosis and then reevaluate for possible surgical resection or chemoradiation. Repeat FNA of the pancreatic head mass on 04/05/2018 was positive for adenocarcinoma. I had seen him initially on 04/20/2018. After discussing options for neoadjuvant chemotherapy, he agreed to begin treatment with a modified FOLFIRINOX regimen. It was administered at a reduced dosage of irinotecan and with omission of the 5-FU bolus. He began cycle 1 of FOLFIRINOX on 04/28/2018. His baseline CA-19-9 level was 515 U/mL. He had no acute toxicity with his treatment. However, at day 10 he was admitted to the hospital after presenting to the emergency room with abdominal pain and fever. He was severely neutropenic, ANC 200. He was treated with Neupogen and broad-spectrum antibiotic coverage, with subsequent recovery. However, during that time he also developed pretty severe diarrhea as well as nausea and anorexia. His clinical course also was complicated by urinary retention. He was discharged home on 05/14/2018 with indwelling Kelly catheter. He was seen for a follow-up visit on 05/24/2018. He still had somewhat marginal performance status, but at that point he was improving. His CA-19-9 level had decreased significantly, to 227 U/mL. Given the fact that he did appear to be showing response to the chemotherapy, we did opt to continue his treatment, but with the regimen changed to modified FOLFOX. He developed some increase in neuropathy with the 1st cycle of FOLFOX, but he otherwise tolerated it well. He was able to continue with the 2nd cycle on 06/07/2018. At that point there was further decrease in the CA-19-9 level to 90 U/mL. He then continued with cycle 3 on 06/22/2018. The CA-19-9 had declined to 44 U/mL. He had followup with Dr. Marquez at [facility] on 07/05/2018. As he appeared to have a good response to the neoadjuvant chemotherapy he was offered the option of undergoing surgical resection. He then underwent pancreaticoduodenectomy on 08/18/2018 with complete resection of the tumor. There was no gross evidence of metastatic disease. Pathology showed just a single focus of residual adenocarcinoma measuring less than 0.1 cm, consistent with near-complete response. There was a residual fibrotic tumor bed extending for approximately 2.1 cm, and there was adjacent high-grade dysplasia. There was no lymphovascular or perineural invasion present. All margins were negative for malignancy. A total of 20 regional lymph nodes were negative for metastatic involvement. Final staging was ypT1a, ypN0. Given the excellent response to the neoadjuvant treatment he was recommended to have additional 4 to 8 cycles of postoperative adjuvant chemotherapy and possibly chemoradiation. He began cycle 1 of postoperative adjuvant chemotherapy with modified FOLFOX on 09/28/2018. He had mild neuropathy symptoms, but no other significant toxicity. He continued with his 2nd postoperative cycle on 10/12/2018, with cycle 3 on 10/26/2018, and with cycle 4 on 11/09/2018. At that point his neuropathy symptoms were getting noticeably worse, and it did opt to stop his chemotherapy after that treatment. He was then followed on observation/expectant management, as he opted not to take chemoradiation. At his follow-up visit in June 2020 his CA 19-9 level had increased to 34 U/mL. A surveillance CT abdomen/pelvis on 07/19/2020 showed residual density in the area of the head of the pancreas measuring 2.92 x 5.90 cm. There was air noted in the biliary system and he was noted to have 3 ventral hernias. There was no obvious metastatic disease. At his follow-up visit on 10/11/2020 he appeared stable clinically. His CA 19-9 level was back down to 29.9 U/mL. His repeat CT abdomen/pelvis on 01/11/2021 showed increasing soft tissue mass at the pancreatic head compared to the 07/19/2020 study. Further evaluation with PET/CT on 01/19/2021 showed an FDG avid soft tissue mass in the precaval region of the upper abdomen measuring 2.5 x 2.0 cm, SUV 6.3, consistent with recurrent malingancy. The pancreatic head was noted to be enlarged with diffuse increased uptake, also suspicious for malignancy. Also noted was internval development of left upper quadrant omental soft tissue implants, SUV 4.9, and multiple FDG positive bilateral mediastinal lymph nodes, likely malignant. A lytic lesion with sclerotic rim in the T9 vertebral body had SUV 4.6, consistent with osseous metastatic disease and a similar lesion was noted in the lateral T2 vertebral body. He was seen for follow-up on 02/14/2021. He was not overtly symptomatic, but given the PET/CT findings, I did recommend that he begin systemic therapy pending outcome of next generation sequencing study. That study was performed by liquid biopsy, and it did show evidence of a BRCA1 mutation at an allelic fraction which was suspicious for germline origin (48.7%). On a subsequent genetic screening study he was confirmed to be heterozygous for a pathogenic BRCA1 mutation ([id number]). Given those findings, I had recommended that he restart chemotherapy with a cisplatin/gemcitabine combination for 4 cycles, with the option to then transition to maintenance therapy with a PARP inhibitor depending on the response. He began cycle 1 of cisplatin/gemcitabine on 04/18/2021. It was complicated by weakness/fatigue and by severe neutropenia, but he recovered uneventfully. He proceeded with his cycle 1 day 15 treatment on 05/02/2021. It was administered with a 20% dose reduction. In the meantime, a scheduled carotid Doppler study on 05/08/2021 showed less than 50% ICA stenosis bilaterally. There was an incidental finding, though, of left jugular vein thrombosis. With that finding, he began anticoagulation with rivaroxaban. He then continued with cycle 2 of cisplatin/gemcitabine on 05/16/2021. Subsequent to that treatment he developed acute urinary retention, requiring placement of Kelly catheter. At that point his chemotherapy was put on hold. Restaging PET/CT on 06/29/2021 showed improvement in the precaval soft tissue lesion with SUV decreased to 4.2, though size was unchanged at 2.4 cm. The diffuse increased pancreatic head uptake had normalized to background, consistent with positive response to therapy. Left upper quadrant soft tissue omental implants appeared modestly improved, SUV decreased to 3.7 from 4.9. Retroperitoneal lymph nodes were subcentimeter in size and FDG negative and previously described mediastinal lymph nodes had FDG activity equivalent to baseline physiologic uptake. Osseous metastatic lesions in the T9 vertebral body and a T2 lytic lesion were noted to be FDG negative. With his having significant treatment-related side effects and with his known BRCA mutation, I opted to stop the chemotherapy and transition him to maintenance olaparib. His other medical illnesses include hypertension, dyslipidemia, hypothyroidism, obstructive sleep apnea, and benign prostatic hypertrophy. He also has a history of seizure. He is a nonsmoker. INTERIM HISTORY: In July 2021 he began maintenance olaparib 300 mg twice daily. As of his follow-up visit on 08/19/2021 he had mild anemia and neutropenia, but he was otherwise tolerating it well, and he continued the olaparib at the same dosage. As of 09/24/2021 his hemoglobin had dropped to 7.0 g, and he required PRBC transfusion. A specific cause for the drop in his hemoglobin was not determined. His stool was heme-negative and he did not appear to be hemolyzing. As of 10/14/2021 he again required PRBC transfusion with his hemoglobin dropping to 5.8 g. At that point the olaparib was discontinued. As of his follow-up visit on 11/04/2021 his hemoglobin was back up to 10.5 g, and he he was feeling much better. His restaging CT scans on 11/21/2021 showed multiple nodules within both lungs in the 2 to 4 mm range, felt to be indeterminate. A 9 mm low-attenuation nodule was noted in the left lobe of the liver, possibly present on prior studies, but developing metastatic lesion was not excluded. The left upper lobe abdomen omental implant had not increased, and there were no new omental implants identified. Overall, there was no definite evidence of disease progression. He is seen for a follow-up visit. He has been feeling good generally. His energy is pretty much back to normal, and he has normal activity. ECOG score is 0. His appetite also is better. He has no fever or night sweats. He has not had sore mouth or throat. He does not complain of cough, and he has not been having shortness of breath or chest pain. His bowel movements are soft, but he does not have diarrhea. He has no other GI complaints. Bladder function remains adequate with tamsulosin. He has no significant joint or bone pain. He does not complain of headache or dizziness, and he has no residual neuropathy symptoms. Medications: Euthyrox 1 Tablet (of 88 mcg) Oral daily, Finasteride 1 Tablet (of 5 mg) Oral daily, Metoprolol Succinate ER 1.5 (50 mg) Tablet SR 24 HR Oral daily, Tamsulosin HCl 1 Tablet (of 0.4 mg) Capsule Oral b.i.d. Allergies: Amoxicillin and Sulfa. Vital Signs: Performed on Dec 03, 2021 10:45 Height - 68.00 in Weight - 185.0 lbs (HIGH) BSA - 1.98 sq.m BMI - 28.13 Temperature - 97.6 F (LOW) Pulse - 60 /min Respiration - 18 /min BP - 119/75 mm(hg) O2 Sat - 99 % Pain - 0 Fatigue - 0 Physical Examination: Constitutional - He appears somewhat weak generally, Eyes - Sclerae nonicteric. Conjunctivae clear, ENMT - No lesions noted in the oral cavity, Hematologic/Lymphatic - No cervical, clavicular, or axillary adenopathy, Respiratory - Lungs are clear with good air movement bilaterally, Cardiovascular - Heart rhythm is regular. There is no murmur, gallop, or rub noted, Abdomen - Soft. There is a ventral hernia. Liver and spleen are not enlarged. There is no abdominal mass or ascites noted and there is no inguinal adenopathy, Extremities - No edema, Neurologic - No focal neurologic deficits noted. Lab/Imaging: Test performed on Dec 03, 2021 09:30 Sodium 136 mmol/L Potassium 4.1 mmol/L Chloride 104 mmol/L CO2 23 mmol/L Anion Gap 13.1 BUN 12 mg/dL Creatinine 0.9 mg/dL Cr Clearance (Est) 82.9700 mL/min Glucose 129 mg/dL Osmolality - Calculated 283 mOsm/kg Calcium 9.1 mg/dL Protein, Total 7.0 g/dL Albumin 3.7 g/dL Globulin 3.3 g/dL Bilirubin, Total 0.4 mg/dL ALT (SGPT) 18 U/L AST (SGOT) 23 U/L Alkaline Phosphatase 134 IU/L WBC 4.2 10 3/uL RBC 3.98 10 6/uL HGB 12.4 g/dL HCT 37.9 % MCV 95.2 fl MCH 31.2 pg MCHC 32.7 g/dL RDW 15.0 % Platelet Count 151 10 3/cmm MPV 9.4 fL Neutrophils 2.52 10 3/uL Lymphocytes 1.1 10 3/uL Monocytes 0.4 10 3/uL Eosinophils 0.2 10 3/uL Basophils 0.0 10 3/uL Neutrophil % 59.8 % Lymphocyte % 26.8 % Monocyte % 8.5 % Eosinophil % 3.8 % Basophils % 0.9 % NRBC % 0 % CA 19-9 26.94 U/mL Problem List: 1. Adenocarcinoma of the head of the pancreas. By clinical evaluation, his disease appears to be stage IIA (T3, N0, M0) at intial diagnosis in February 2018. He has had subsequent progression to stage IV. He also has been found to be a BRCA1 mutation carrier. 2. Hypertension. 3. Hyperlipidemia. 4. Hypothyroidism. 5. Obstructive sleep apnea. 6. Benign prostatic hypertrophy. 7. He has a history of seizure. 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 By clinical evaluation, his disease appears to be stage IIA (T3, N0, M0). He underwent ERCP with placement of biliary stent and upper EUS 03/08/2018. The diagnosis was confirmed by repeat FNA of the pancreatic head mass on 04/07/2018. He had a very good response to neoadjuvant chemotherapy with FOLFIRINOX, though it did cause severe toxicities. He had further neoadjuvant chemotherapy with 3 cycles of modified FOLFOX and he then underwent pancreaticoduodenectomy on 08/18/2018. Pathology showed near complete response to the chemotherapy with one focus of residual tumor measuring less than 0.1 cm. The margins were free and there was no involvement in 20 lymph nodes. Pathologic staging was ypT1a, ypN0. He was then given postoperative adjuvant chemotherapy with an additional 4 cycles of modified FOLFOX, completed in October 2018. He was then followed on observation/expectant management, as he declined chemoradiation. As of his follow-up visit in June 2020 there was an increase in his CA 19-9 level up to 34 U/mL. His surveillance CT abdomen/pelvis on 07/19/2020 showed residual density in the area of the head of the pancreas measuring 2.92 x 5.90 cm. There was air noted in the biliary system, and he was noted to have 3 ventral hernias. There was no obvious metastatic disease. As of his follow-up visit in September 2020 his CA 19-9 level was back down to 29.91 U/mL. He continued observation/expectant management. His repeat CT abdomen/pelvis on 01/11/2021 showed further increase in the lobulated mass in the area of the pancreatic head measuring 3.4 x 6.3 cm. The appearance was suspicious for recurrent neoplasm. With those findings had had further evaluation with PET/CT on 01/19/2021 and that study showed FDG uptake in upper abdominal precaval mass, in the area of the pancreatic head, and bilateral mediastinal lymph nodes and in left upper quadrant omental soft tissue implants consistent with recurrence/metastatic disease. Also noted were suspected metastatic lesions in the T2 and T9 vertebral bodies. A next generation sequencing study by liquid biopsy showed evidence of a BRCA1 mutation. Based on the allelic fraction, it was suspicious for a germline mutation. I subsequent genetic screening study he was confirmed to be heterozygous for a BRCA1 mutation. On 04/18/2021 he restarted chemotherapy with cycle 1 of cisplatin/gemcitabine. Toxicities were relatively mild and included fatigue and constipation. He was significantly neutropenic at day 8 with absolute neutrophil count 1200. He recovered uneventfully and he proceeded with his cycle 1 day 15 treatment on 05/02/2021. It was administered with a 20% dose reduction. Despite the reduction, he again became severely neutropenic, though he did recover uneventfully with Neupogen. In the meantime, he was found on scheduled carotid Doppler study to have an incidental finding of left internal jugular vein thrombosis. This was presumed to be Port-A-Cath related. He began on anticoagulation with rivaroxaban. He continued with cycle 2 of cisplatin/gemcitabine on 05/16/2021. That treatment was complicated by acute urinary retention, requiring temporary placement of Kelly catheter. His bladder function subsequently recovered, but he opted to put his chemotherapy on hold. Restaging PET/CT on 06/29/2021 showed improvement in the areas of FDG uptake, including the pancreatic head area, the aortocaval mass, and the retroperitoneal and mediastinal lymph nodes. The bone lesions were FDG negative. With those findings and with his known BRCA1 mutation, I opted to stop the chemotherapy and transition him to maintenance olaparib 300 mg twice daily. As of his follow-up visit in August 2021 he had a mild anemia and neutropenia, but he is otherwise tolerating the olaparib with no adverse effects. However, by September the anemia had worsened to the point that he required PRBC transfusion on 2 occasions. The anemia was presumed to be treatment related, as he had no evidence of blood loss or hemolysis. The olaparib was put on hold as of early October. He has since then had complete recovery, and there is no evidence of disease progression by restaging CT. As such, he will now continue on expectant management. I will see him again in 3 months. Signed By: Evaristo Acosta M.D. <<Signature on File>>
== END 2021-12-12 23:59 | disposition home or self-care (01) ==
LOC: ONCMED 09:15
PROVIDERS: PCP Internal Medicine; Visit Provider Internal Medicine Medical Oncology
DX: C25.0 Malignant neoplasm of head of pancreas (principal); I10 Essential (primary) hypertension; E78.5 Hyperlipidemia, unspecified; E03.9 Hypothyroidism, unspecified; G47.33 Obstructive sleep apnea (adult) (pediatric); N40.0 Benign prostatic hyperplasia without lower urinary tract symptoms; Z86.69 Personal history of other diseases of the nervous system and sense organs; Z79.899 Other long term (current) drug therapy; Z92.21 Personal history of antineoplastic chemotherapy; Z92.3 Personal history of irradiation
CPT/HCPCS: 36591; 80053; 85025; 86301; 99214

== ENCOUNTER 2022-01-09 10:44 | Outpatient (RCR) | payer MEDICARE, OTHER, SELFPAY | END 2022-01-11 23:59 | disposition home or self-care (01) | LOC: ONCMED 10:44 | PROVIDERS: PCP Internal Medicine; Visit Provider Internal Medicine Medical Oncology | DX: Z45.2 Encounter for adjustment and management of vascular access device (principal) | CPT/HCPCS: 96523 ==

== ENCOUNTER 2022-02-06 13:58 | Oncology outpatient (recurring) (ONCR) | payer MEDICARE, OTHER, SELFPAY ==
[2022-02-06 14:15] VITALS: BP 133/87; PULSE 74; RESP 18; TEMP 36.7; O2SAT 98
== END 2022-02-11 23:59 | disposition home or self-care (01) ==
LOC: ONCMED 13:58
PROVIDERS: PCP Internal Medicine; Visit Provider Internal Medicine Medical Oncology
DX: Z45.2 Encounter for adjustment and management of vascular access device (principal)
CPT/HCPCS: 96523

== ENCOUNTER 2022-03-10 08:48 | Oncology outpatient (recurring) (ONCR) | payer MEDICARE, OTHER, SELFPAY ==
[2022-03-10 08:55] VITALS: BP 148/90; PULSE 63; RESP 16; TEMP 36.4; O2SAT 100
== END 2022-03-13 23:59 | disposition home or self-care (01) ==
PROVIDERS: PCP Internal Medicine; Visit Provider Internal Medicine Medical Oncology
DX: Z45.2 Encounter for adjustment and management of vascular access device (principal)
CPT/HCPCS: 96523

== ENCOUNTER 2022-04-09 11:30 | Oncology outpatient (recurring) (ONCR) | payer MEDICARE, OTHER, SELFPAY ==
--- NOTE | 2022-04-07 08:58 | CT_ITS ---
WS: [id number] CT CHEST, ABDOMEN AND PELVIS HISTORY: PANCREATIC CANCER TECHNIQUE: Contiguous 5 mm axial imaging performed through the chest, abdomen and pelvis with IV cont rast, oral contrast has been provided. Coronal and sagittal reformats chest. Coronal and sagittal ref ormats through the abdomen and pelvis. All CT scans at [facility] use at least one of these d ose optimization techniques: automated exposure control; mA and/or kV adjustment per patient size (in cludes targeted exams where dose is matched to clinical indication); or iterative reconstruction. CONTRAST: Omnipaque 350; 95 mL IV. DLP: 1708.15 mGy.cm COMPARISON: 11/21/2021, 01/11/2021 and 07/19/[address]: Bilateral 3 to 4 mm pulmonary nodules are reidentified. These nodules have not increased in size or number. No new mass. Mediastinal and hilar lymph nodes are stable. Majority of these lymph n odes contain a normal fatty hilum. Atherosclerosis aorta. Normal size pulmonary artery. LEFT subclavi an Mediport remains in good position. Small hiatal hernia. Abdomen CT: No increase in size of the low-attenuation nodule in the LEFT lobe liver near falciform l igament. 8 mm. On the early arterial imaging through the upper abdomen is a vascular lesion in the RI GHT lobe most consistent with a hemangioma. Pneumobilia. Normal portal vein. Very mild duct dilatatio n into the LEFT lobe of the liver. Similar to the prior study. Normal size spleen with granulomata. S urgical resection of the pancreatic head. There is very slight pancreatic duct dilatation which has n ot progressed. No adrenal mass. Normal size kidneys with no obstruction. Atherosclerosis aorta. Ventr al abdominal wall hernia contains nonobstructed loops of bowel. There are supraumbilical and infraumb ilical hernias. No mesenteric or retroperitoneal adenopathy. No ascites. No change in the omental nod ule measuring 10 mm in the LEFT upper abdomen. No GI tract obstruction. Sigmoid diverticulosis. No acute diverticulitis. Normal appendix. Pelvic CT: Prostate gland is markedly enlarged and heterogeneous encroaching into the base of the uri nary bladder. No bladder wall thickening or enhancement. No free fluid or adenopathy. Degenerative changes in the lumbar spine. Disc spaces are narrowed. L5 grade 1 anterolisthesis. No os teoblastic or osteolytic bone disease. CT/CT chest abd pel w con* IMPRESSION: 1. No increase in size of the scattered 3 to 4 mm pulmonary nodules since 11/21. 2. No increase in size of the LEFT hepatic lobe low-attenuation nodule. 3. Prior resection of the pancreatic head. 4. No ascites or recurrent mass or adenopathy. 5. Supraumbilical and infraumbilical abdominal wall hernias. Supraumbilical he rnia contains nondilated small bowel. 6. No change in a 10 mm omental nodule LEFT upper abdomen. 7. Marked prostate enlargement and heterogeneity. 8. Prior cholecystectomy and pneumobilia.
[2022-04-07 11:34] LABS: Blood Urea Nitrogen 14 mg/dL (8-23)
[2022-04-07] MEDS: iohexol 350 mg/mL 100 mL Btl IV (11:47)
[2022-04-07] MEDS: barium sulfate 450 mL Oral Susp PO (11:48)
[2022-04-09 11:40] LABS: Basophils % 0.6 %; Eosinophils # 0.2 10^3/uL (0.0-0.8); Eosinophils % 3.7 %; Hematocrit 41.8 % (42.0-52.0); Hemoglobin 13.9 g/dL (11.7-16.6); Lymphocytes # 1.6 10^3/uL (0.8-4.8); Lymphocytes % 31.5 %; Mean Corpuscular HGB Conc 33.3 g/dL (30.0-36.0); Mean Corpuscular Hemoglobin 30.2 pg (28.0-34.0); Mean Corpuscular Volume 90.9 fl (80-94); Mean Platelet Volume 9.7 fL (7.4-10.4); Monocytes # 0.4 10^3/uL (0.2-0.9); Monocytes % 8.4 %; Neutrophils # 2.84 10^3/uL (1.8-7.7); Neutrophils % 55.2 %; Nucleated Red Blood Cells % 0 %; Platelet Count 153 10^3/cmm (130-400); Red Cell Distribution Width 14.3 % (12.1-15.1); White Blood Count 5.1 10^3/uL (4.0-10.0)
[2022-04-09 12:19] LABS: Alanine Aminotransferase 16 U/L (0-41); Albumin Level 4.2 g/dL (3.5-5.2); Alkaline Phosphatase 113 IU/L (40-130); Anion Gap 12.4 (5-19); Aspartate Amino Transferase 34 U/L (0-40); Blood Urea Nitrogen 13 mg/dL (8-23); Calcium 8.8 mg/dL (8.5-10.5); Cancer Antigen 19 9 34.81 U/mL (0-35); Carbon Dioxide 25 mmol/L (22-29); Chloride 104 mmol/L (98-107); Globulin 2.6 g/dL (1.3-4.6); Glucose 94 mg/dL (65-115); Osmolality Calculated 284 mOsm/kg (285-295); Potassium 4.4 mmol/L (3.5-5.1); Sodium 137 mmol/L (136-145); Total Bilirubin 0.8 mg/dL (0.15-1.2); Total Protein 6.8 g/dL (6.6-8.7)
== END 2022-04-13 23:59 | disposition home or self-care (01) ==
PROVIDERS: PCP Internal Medicine; Visit Provider Internal Medicine Medical Oncology
DX: Z08 Encounter for follow-up examination after completed treatment for malignant neoplasm (principal); Z85.07 Personal history of malignant neoplasm of pancreas; Z92.21 Personal history of antineoplastic chemotherapy
CPT/HCPCS: 36591; 71260; 74177; 80053; 82565; 84520; 85025; 86301; 99214

== ENCOUNTER → 2022-04-11 10:21 | Outpatient (BNVA) | payer MEDICARE, OTHER, SELFPAY | PROVIDERS: PCP Internal Medicine; Visit Provider Surgery | DX: Z95.828 Presence of other vascular implants and grafts (principal); C25.0 Malignant neoplasm of head of pancreas; K43.2 Incisional hernia without obstruction or gangrene | CPT/HCPCS: 99213 ==

== ENCOUNTER 2022-05-12 05:55 | Day surgery (SDC) | payer MEDICARE, OTHER, SELFPAY ==
[2022-05-09 14:21] VITALS: BMI 26.6
[2022-05-12] VITALS (8 sets, daily range): BP systolic 120–139; BP diastolic 75–87; PULSE 55–63; RESP 13–18; TEMP 36.2–36.5; O2SAT 90–99
[2022-05-12] MEDS: sodium chloride 0.9% 1,000 ML 30 ML IV (06:33)
--- NOTE | 2022-05-12 06:46 | PM.HP ---
Providers/Chief Complaint Primary Care Provider: Daly Perez MD Chief Complaint: Incisional hernia, Mediport in place History of Present Illness Misbah Springer is a 76 year old male who presents for Mediport removal and laparoscopic repair of incisional hernia with mesh Medications/Allergies Home Medications Medication Instructions Recorded Confirmed Last Taken Type levothyroxine 88 mcg tablet 88 mcg PO DAILY 03/19/21 05/12/22 05/11/22 History metoprolol succinate 50 mg 50 mg PO DAILY 03/19/21 05/12/22 05/12/22 History tablet,extended release 24 hr finasteride 5 mg tablet 5 mg PO DAILY #90 tabs 10/08/21 05/12/22 05/11/22 Rx tamsulosin 0.4 mg capsule 0.4 mg PO BID #180 caps 10/15/21 05/12/22 05/11/22 Rx Allergies Allergy/AdvReac Type Severity Reaction Status Date / Time amoxicillin Allergy ALGY-Rash Verified 04/11/22 10:33 Sulfa (Sulfonamide Allergy Unknown Verified 04/11/22 10:33 Antibiotics) PFSH Acute PFSH: Medical History Ascending aorta enlargement BPH loc w urin obs/LUTS Carotid stenosis, bilateral CHF (congestive heart failure) CVA (cerebral vascular accident) Dyslipidemia History of seizure History of urinary retention HTN (hypertension) Hypothyroidism MELL (obstructive sleep apnea) Pancreatic cancer Surgical History History of colonoscopy 10+yrs History of pancreatic surgery (08/18/18) Pancreaticoduodenectomy History of removal of Port-a-Cath (04/15/21) previously on right side, removed 2019 S/P cataract extraction Family History Family/Other No problems noted. Brother Cancer LUNG Father , in his 70's Cancer LUNG Mother , at age 84 CAD (coronary artery disease) Diabetes Hypertension Other Stroke Denies family history of Clotting disorder Dementia Hyperlipidemia Psychiatric illness Chronic kidney disease (CKD) Suicide Anesthesia complication Bleeding disorder Lung disease Social History Smoking and tobacco status: never smoked Alcohol intake: never Household members: spouse Marital status: Current occupational status: retired History of recent travel: No Vitals/I&O/Wt Last Vital Signs Temp 97.7 F 05/12/22 06:21 Pulse 62 05/12/22 06:21 Resp 18 05/12/22 06:21 BP 139/83 05/12/22 06:21 Pulse Ox 94 05/12/22 06:21 O2 Del Method 05/12/22 06:21 Physical Exam Narrative: General : Patient is well developed , no acute distress, oriented x3 Head : Normal cephalic, a-traumatic. Ears : Pinnae and external canal are normal. Hearing is normal. Eyes : PERRLA, Sclera and injection are normal. No conjunctival discharge. Nose : Mucous membranes are without erythema. Throat : buccal mucosa is normal, gums are without significant recession or hypertrophy. Lungs : Equal chest rise bilaterally, no use of accessory muscles, trachea is midline. Cor : Rate and rhythm are normal. Abdomen : Soft, ND, NT, no g/R, reducible incisional hernia Extremities : No edema, no cyanosis or clubbing, dorsalis pedis pulses are present bilaterally, non-tender to palpation of calves. Upper extremities are normal bilaterally. Back : non-tender to palpation, no CVA tenderness. Neuro : CN II - XII intact, Upper and lower extremities have equal and full strength A&P Assessment and plan (1) Incisional hernia: Status: Acute (2) Port-A-Cath in place: Status: Acute Plan Mediport removal, laparoscopic repair of incisional hernia with mesh. The risks and benefits of the procedures have been explained and documented. Attestations Medical Necessity Statement*: will go home Coding Level of Care Code Acute Data Security Coordinator for [facility] Diagnoses Incisional hernia K43.2 Port-A-Cath in place Z95.828
[2022-05-12] MEDS: vancomycin 1,000 MG in sodium chloride 0.9% 250 ML 250 MG IV (07:00)
--- NOTE | 2022-05-12 07:01 | ANES.PREANE2 ---
Pre-Anesthetic Assessment Height/Weight: Height 1.73 m Weight 79.379 kg Temp Pulse Resp BP Pulse Ox O2 Del Method 97.7 F 62 18 139/83 94 05/12/22 06:21 05/12/22 06:21 05/12/22 06:21 05/12/22 06:21 05/12/22 06:21 05/12/22 06:21 Preop Diagnosis: Desires mediport removal. Incisional hernia Operation Date: 05/12/22 08:15 Proposed Procedures p lap incisional hernia repair w/mesh,port removal 36154,[id number],K43.2,Z95.828(Not Applicable) - Octavio Lam DO s Portacath Removal(Not Applicable) - Octavio Lam DO Familial anesthetic complications: None Was Beta Swetha taken within 24 hours: Yes Was Clonidine taken within 24 hours: N/A Last intake: > 8hrs Social No alcohol and No tobacco Exam alert, oriented x 3, clear to auscultation bilaterally and regular rate & rhythm Airway Mallampati: Class II Dentition: partials Pulmonary Sleep Apnea CV/HEM Hypertension None reported Hepatic None reported GI Hx whipple procedure Metabolic Thyroid Disease Anesthetic Plan ASA status: 3 Risk of > 500 ml blood loss (7ml/kg in children): No Medications/Allergies Home Medications Medication Instructions Recorded Confirmed Last Taken Type levothyroxine 88 mcg tablet 88 mcg PO DAILY 03/19/21 05/12/22 05/11/22 History metoprolol succinate 50 mg 50 mg PO DAILY 03/19/21 05/12/22 05/12/22 History tablet,extended release 24 hr finasteride 5 mg tablet 5 mg PO DAILY #90 tabs 10/08/21 05/12/22 05/11/22 Rx tamsulosin 0.4 mg capsule 0.4 mg PO BID #180 caps 10/15/21 05/12/22 05/11/22 Rx Allergies Allergy/AdvReac Type Severity Reaction Status Date / Time amoxicillin Allergy ALGY-Rash Verified 04/11/22 10:33 Sulfa (Sulfonamide Allergy Unknown Verified 04/11/22 10:33 Antibiotics) Current Medications Generic Name Dose Route Start Last Admin Trade Name Freq PRN Reason Stop Dose Admin Sodium Chloride 1,000 mls @ 30 mls/hr 05/12/22 06:15 05/12/22 06:33 Sodium Chloride 0.9% IV 05/13/22 06:14 30 mls/hr .Q24H JAMES Administration PFSH Anesthesia Medical History Ascending aorta enlargement BPH loc w urin obs/LUTS Carotid stenosis, bilateral CHF (congestive heart failure) CVA (cerebral vascular accident) Dyslipidemia History of seizure History of urinary retention HTN (hypertension) Hypothyroidism MELL (obstructive sleep apnea) Pancreatic cancer Surgical History History of colonoscopy 10+yrs History of pancreatic surgery (08/18/18) Pancreaticoduodenectomy History of removal of Port-a-Cath (04/15/21) previously on right side, removed 2019 S/P cataract extraction Family History Family/Other No problems noted. Brother Cancer LUNG Father , in his 70's Cancer LUNG Mother , at age 84 CAD (coronary artery disease) Diabetes Hypertension Other Stroke Denies family history of Clotting disorder Dementia Hyperlipidemia Psychiatric illness Chronic kidney disease (CKD) Suicide Anesthesia complication Bleeding disorder Lung disease Social History Smoking and tobacco status: never smoked Alcohol intake: never Household members: spouse Marital status: Current occupational status: retired History of recent travel: No Data Anesthesia Cardiac Studies: Echocardiogram 05/08/21 Sestamibi Stress Test (Cardiology) 03/28/21
--- NOTE | 2022-05-12 08:36 | PM.OP ---
Operative Report Date of procedure: May 12, 2022 Pre-op diagnosis: Preop Diagnosis Desires mediport removal. Incisional hernia Post-op diagnosis: other Post-op diagnosis: Port-A-Cath in place. Incisional hernias x3. Procedure done: Laparoscopic repair of incisional hernias x3. Mediport removal Implants: 8 inch ventral light mesh Specimens removed/disposition: Hernia sacs x3. Mediport-not sent to pathology Surgeon: Dr. Octavio Lam, DO Anesthesia: General Estimated blood loss (mL): 5 Complications: None apparent Brief History: This is a very pleasant 76-year-old gentleman who underwent a Whipple and subsequently got chemotherapy through a Mediport. He is refusing any further chemotherapy and would like his Mediport removed. He also got 3 incisional hernias from his Whipple incision that he would like repaired. The risks and benefits of the procedures were explained and documented Procedure: Patient was wheeled into the operative room and placed on the OR table in a supine position. Abdomen was inspected prepped and draped in usual sterile fashion. Time-out was performed and all present were in agreement. A 15 blade scalp was used to make a 5 millimeter incision left upper quadrant. A Veress needle was placed into the incision and intra-abdominal insufflation was brought to 15 millimeters of mercury. A 5 mm trocar was then placed through this incision under Optiview. A 12 mm trocar was then placed into the left lower quadrant under direct vision. 3 separate incisional hernias were identified in the midline. The energy but device was then used to cut out the 3 hernia sacs. The hernias measured 6 cm, 1 cm and 3 cm each in diameter. An 8 inch ventral light mesh was placed into the abdomen and brought up through the center of the 3 separate hernias. The mesh was then tacked in place in a double crown fashion, requiring 3 secure straps. The skeleton was removed from the mesh. The hernia sacs were then removed from the abdomen via an endobag at the left lower quadrant. The left lower quadrant port site was closed with an 0 Vicryl suture in a Erik-Barbara in a asckzv-zs-vvoru fashion. Incisions were closed with 4 O Vicryl in a subcuticular interrupted fashion. Skin glue was applied. Patient tolerated the procedure well. Drapes were then removed and his left anterior chest was inspected prepped and draped in the usual sterile fashion. 2% lidocaine with epinephrine was used to anesthetize the area over the Mediport. A 15 blade scalpel was then used to make a horizontal incision, through the old incision, over the Mediport. The capsule was cut using Bovie cautery. The Mediport was removed with pressure being held over the catheter tract. The catheter tract was closed with 3-0 Vicryl in a [id number] fashion. Hemostasis was achieved with electrocautery. The dermis was approximated with 3-0 Vicryl. Skin glue was applied. Patient tolerated the procedure well.
[2022-05-12] MEDS: HYDROcodone-acetaminophen 7.5-325 mg Tablet 1 TAB PO (09:30)
--- NOTE | 2022-05-12 13:27 | ANE.PACU2 ---
Inpatient post-anesthesia follow up: Airway intact: Yes Vital signs: Temperature 97.1 F Pulse Rate 55 Respiratory Rate 16 Blood Pressure 124/79 Pulse Oximetry 90 Oxygen Delivery Me thod Room Air Oxygen Flow Rate 6 Fraction of Inspir ed Oxygen Hydration adequate: Yes Nausea and vomiting: No Pain level: 1 Mental status: Baseline
== END 2022-05-12 10:10 | disposition home or self-care (01) ==
PROVIDERS: PCP Internal Medicine; Visit Provider Surgery
PROC: 0WQF4ZZ Repair Abdominal Wall, Percutaneous Endoscopic Approach (ICD-10-PCS; CPT 36590; principal; 2022-05-12 08:05)
PROC: (CPT 36589; 2022-05-12 08:05)
DX: K43.2 Incisional hernia without obstruction or gangrene (principal); I11.0 Hypertensive heart disease with heart failure; I50.9 Heart failure, unspecified; E78.5 Hyperlipidemia, unspecified; E03.9 Hypothyroidism, unspecified; G47.33 Obstructive sleep apnea (adult) (pediatric); C25.9 Malignant neoplasm of pancreas, unspecified; Z92.21 Personal history of antineoplastic chemotherapy; Z86.73 Personal history of transient ischemic attack (TIA), and cerebral infarction without residual deficits; Z88.2 Allergy status to sulfonamides; Z88.0 Allergy status to penicillin
CPT/HCPCS: 36590; 49654; 88302; C1781; J1100; J2405; J2704; J2710; J3010; J3370; J3490; J7030; J7050

== ENCOUNTER → 2022-05-27 08:00 | Outpatient (BNVA) | payer MEDICARE, OTHER, SELFPAY | PROVIDERS: PCP Internal Medicine; Visit Provider Surgery | DX: Z98.890 Other specified postprocedural states (principal); Z87.19 Personal history of other diseases of the digestive system | CPT/HCPCS: 99024 ==

== ENCOUNTER → 2022-07-22 09:49 | Outpatient (BNVA) | payer MEDICARE, OTHER, SELFPAY | PROVIDERS: PCP Internal Medicine; Visit Provider Surgery | DX: Z98.890 Other specified postprocedural states (principal); Z87.19 Personal history of other diseases of the digestive system | CPT/HCPCS: 99024 ==

== ENCOUNTER → 2022-10-09 08:51 | Outpatient (BNVA) | payer MEDICARE, OTHER, SELFPAY | PROVIDERS: PCP Internal Medicine; Visit Provider Urology | DX: N40.1 Benign prostatic hyperplasia with lower urinary tract symptoms (principal); R33.9 Retention of urine, unspecified | CPT/HCPCS: 51741; 51798; 81003; 87077; 87086; 87186; 99213 ==

== ENCOUNTER 2022-11-10 11:32 | Oncology outpatient (recurring) (ONCR) | payer MEDICARE, OTHER, SELFPAY ==
[2022-11-10 12:23] LABS: Basophils % 0.7 %; Eosinophils # 0.2 10^3/uL (0.0-0.8); Eosinophils % 3.8 %; Hematocrit 41.1 % (42.0-52.0); Hemoglobin 13.7 g/dL (11.7-16.6); Lymphocytes # 1.6 10^3/uL (0.8-4.8); Lymphocytes % 28.6 %; Mean Corpuscular HGB Conc 33.3 g/dL (30.0-36.0); Mean Corpuscular Volume 90.1 fl (80-94); Mean Platelet Volume 9.2 fL (7.4-10.4); Monocytes # 0.4 10^3/uL (0.2-0.9); Monocytes % 6.5 %; Neutrophils # 3.32 10^3/uL (1.8-7.7); Neutrophils % 59.9 %; Nucleated Red Blood Cells % 0 %; Platelet Count 180 10^3/cmm (130-400); Red Blood Count 4.56 10^6/uL (4.1-5.3); Red Cell Distribution Width 14.7 % (12.1-15.1); White Blood Count 5.6 10^3/uL (4.0-10.0)
[2022-11-10 12:56] LABS: Alanine Aminotransferase 12 U/L (0-41); Alkaline Phosphatase 110 U/L (40-130); Anion Gap 14.9 (5-19); Aspartate Amino Transferase 22 U/L (0-40); Blood Urea Nitrogen 13 mg/dL (8-23); Calcium 8.9 mg/dL (8.5-10.5); Carbon Dioxide 22 mmol/L (22-29); Chloride 103 mmol/L (98-107); Globulin 3.3 g/dL (1.3-4.6); Glucose 104 mg/dL (65-115); Osmolality Calculated 282 mOsm/kg (285-295); Potassium 3.9 mmol/L (3.5-5.1); Sodium 136 mmol/L (136-145); Total Bilirubin 0.8 mg/dL (0.15-1.2); Total Protein 7.3 g/dL (6.6-8.7)
== END 2022-11-11 23:59 | disposition home or self-care (01) ==
PROVIDERS: Nurse Practitioner; PCP Internal Medicine; Visit Provider Internal Medicine Medical Oncology
DX: Z08 Encounter for follow-up examination after completed treatment for malignant neoplasm (principal); Z85.07 Personal history of malignant neoplasm of pancreas; R97.0 Elevated carcinoembryonic antigen [CEA]; R97.8 Other abnormal tumor markers; Z92.21 Personal history of antineoplastic chemotherapy; Z92.3 Personal history of irradiation
CPT/HCPCS: 36415; 80053; 80061; 84443; 85025; 86301; 99214

== ENCOUNTER → 2023-01-14 12:03 | Outpatient (BNVA) | payer MEDICARE, OTHER, SELFPAY | PROVIDERS: PCP Internal Medicine; Visit Provider Internal Medicine Cardiovascular Disease | DX: E03.9 Hypothyroidism, unspecified (principal); G47.33 Obstructive sleep apnea (adult) (pediatric); I77.89 Other specified disorders of arteries and arterioles; E78.5 Hyperlipidemia, unspecified; I11.0 Hypertensive heart disease with heart failure; I50.32 Chronic diastolic (congestive) heart failure; Z86.73 Personal history of transient ischemic attack (TIA), and cerebral infarction without residual deficits; Z85.07 Personal history of malignant neoplasm of pancreas | CPT/HCPCS: 99213 ==

== ENCOUNTER 2023-02-04 12:27 | Oncology outpatient (recurring) (ONCR) | payer MEDICARE, OTHER, SELFPAY ==
[2023-02-04 13:15] LABS: Basophils # 0.1 10^3/uL (0.0-0.1); Basophils % 0.8 %; Eosinophils # 0.2 10^3/uL (0.0-0.8); Eosinophils % 3.3 %; Hematocrit 41.9 % (42.0-52.0); Hemoglobin 13.9 g/dL (11.7-16.6); Lymphocytes # 1.6 10^3/uL (0.8-4.8); Lymphocytes % 26.8 %; Mean Corpuscular HGB Conc 33.2 g/dL (30.0-36.0); Mean Corpuscular Hemoglobin 29.8 pg (28.0-34.0); Mean Corpuscular Volume 89.9 fl (80-94); Mean Platelet Volume 9.1 fL (7.4-10.4); Monocytes # 0.4 10^3/uL (0.2-0.9); Monocytes % 6.5 %; Neutrophils # 3.82 10^3/uL (1.8-7.7); Neutrophils % 62.3 %; Nucleated Red Blood Cells % 0 %; Platelet Count 193 10^3/cmm (130-400); Red Blood Count 4.66 10^6/uL (4.1-5.3); Red Cell Distribution Width 13.4 % (12.1-15.1); White Blood Count 6.1 10^3/uL (4.0-10.0)
[2023-02-04 13:44] LABS: Alanine Aminotransferase 9 U/L (0-41); Albumin Level 3.9 g/dL (3.5-5.2); Alkaline Phosphatase 121 U/L (40-130); Anion Gap 13.4 (5-19); Aspartate Amino Transferase 22 U/L (0-40); Blood Urea Nitrogen 12 mg/dL (8-23); Calcium 8.6 mg/dL (8.5-10.5); Carbon Dioxide 24 mmol/L (22-29); Chloride 101 mmol/L (98-107); Globulin 3.3 g/dL (1.3-4.6); Glucose 111 mg/dL (65-115); Osmolality Calculated 278 mOsm/kg (285-295); Potassium 4.4 mmol/L (3.5-5.1); Sodium 134 mmol/L (136-145); Total Bilirubin 0.6 mg/dL (0.15-1.2); Total Protein 7.2 g/dL (6.6-8.7)
[2023-02-04 14:07] LABS: Cancer Antigen 19 9 40.46 U/mL (0-35)
== END 2023-02-11 23:59 | disposition home or self-care (01) ==
PROVIDERS: Nurse Practitioner; PCP Internal Medicine; Visit Provider Internal Medicine Medical Oncology
DX: C25.0 Malignant neoplasm of head of pancreas (principal); C77.8 Secondary and unspecified malignant neoplasm of lymph nodes of multiple regions; C78.6 Secondary malignant neoplasm of retroperitoneum and peritoneum; C79.51 Secondary malignant neoplasm of bone; D64.81 Anemia due to antineoplastic chemotherapy; T45.1X5A Adverse effect of antineoplastic and immunosuppressive drugs, initial encounter; R97.8 Other abnormal tumor markers; Z79.899 Other long term (current) drug therapy
CPT/HCPCS: 36415; 80053; 85025; 86301; 99214

== ENCOUNTER 2023-05-06 10:49 | Oncology outpatient (recurring) (ONCR) | payer MEDICARE, OTHER, SELFPAY ==
[2023-05-06 11:05] VITALS: BP 123/81; PULSE 55; RESP 18; TEMP 36.7; O2SAT 97
[2023-05-06 11:20] LABS: Basophils # 0.1 10^3/uL (0.0-0.1); Basophils % 0.9 %; Eosinophils # 0.2 10^3/uL (0.0-0.8); Eosinophils % 3.1 %; Hematocrit 42.3 % (37-53); Lymphocytes # 1.7 10^3/uL (0.8-4.8); Lymphocytes % 28.8 %; Mean Corpuscular HGB Conc 33.8 g/dL (30-55); Mean Corpuscular Hemoglobin 30.6 pg (27-33); Mean Corpuscular Volume 90.4 fl (82-101); Monocytes # 0.4 10^3/uL (0.2-0.9); Monocytes % 6.9 %; Nucleated Red Blood Cells % 0 %; Platelet Count 182 10^3/cmm (157-399); Red Blood Count 4.68 10^6/uL (3.85-5.65); Red Cell Distribution Width 13.6 % (12.1-15.1); White Blood Count 5.83 10^3/uL (3.29-11.43)
[2023-05-06 11:53] LABS: Alanine Aminotransferase 9 U/L (0-41); Albumin Level 3.9 g/dL (3.5-5.2); Alkaline Phosphatase 104 U/L (40-130); Anion Gap 12.3 (5-19); Aspartate Amino Transferase 16 U/L (0-40); Blood Urea Nitrogen 10 mg/dL (8-23); Calcium 8.7 mg/dL (8.5-10.5); Cancer Antigen 19 9 46.37 U/mL (0-35); Carbon Dioxide 24 mmol/L (22-29); Chloride 106 mmol/L (98-107); Globulin 3.2 g/dL (1.3-4.6); Glucose 96 mg/dL (65-115); Osmolality Calculated 285 mOsm/kg (285-295); Potassium 4.3 mmol/L (3.5-5.1); Sodium 138 mmol/L (136-145); Total Bilirubin 0.8 mg/dL (0.15-1.2); Total Protein 7.1 g/dL (6.6-8.7)
== END 2023-05-14 23:59 | disposition home or self-care (01) ==
LOC: ONCMED 10:50
PROVIDERS: Nurse Practitioner; PCP Internal Medicine; Visit Provider Internal Medicine Medical Oncology
DX: C25.9 Malignant neoplasm of pancreas, unspecified (principal)
CPT/HCPCS: 36415; 80053; 85025; 86301

== ENCOUNTER → 2023-06-23 11:29 | Outpatient (BNVA) | payer MEDICARE, OTHER, SELFPAY | PROVIDERS: PCP Internal Medicine; Visit Provider Internal Medicine Cardiovascular Disease | DX: E03.9 Hypothyroidism, unspecified (principal); Z85.07 Personal history of malignant neoplasm of pancreas; I77.89 Other specified disorders of arteries and arterioles; G47.33 Obstructive sleep apnea (adult) (pediatric); E78.5 Hyperlipidemia, unspecified; I65.23 Occlusion and stenosis of bilateral carotid arteries; I11.0 Hypertensive heart disease with heart failure; I50.9 Heart failure, unspecified; Z86.73 Personal history of transient ischemic attack (TIA), and cerebral infarction without residual deficits | CPT/HCPCS: 99213 ==

== ENCOUNTER 2023-08-05 10:56 | Oncology outpatient (recurring) (ONCR) | payer MEDICARE, OTHER, SELFPAY ==
[2023-08-05 11:11] VITALS: BP 138/86; PULSE 50; RESP 16; TEMP 36.5; O2SAT 99
[2023-08-05 11:30] LABS: Basophils % 0.6 %; Eosinophils # 0.2 10^3/uL (0.0-0.8); Hematocrit 42.4 % (37-53); Lymphocytes % 31.4 %; Mean Corpuscular HGB Conc 33.3 g/dL (30-55); Mean Corpuscular Hemoglobin 30.6 pg (27-33); Mean Platelet Volume 9.4 fL (7.4-10.4); Monocytes # 0.4 10^3/uL (0.2-0.9); Monocytes % 6.8 %; Neutrophils # 3.62 10^3/uL (1.8-7.7); Neutrophils % 57.7 %; Nucleated Red Blood Cells % 0 %; Platelet Count 182 10^3/cmm (157-399); Red Blood Count 4.61 10^6/uL (3.85-5.65); Red Cell Distribution Width 13.5 % (12.1-15.1); White Blood Count 6.28 10^3/uL (3.29-11.43)
[2023-08-05 11:58] LABS: Alanine Aminotransferase 10 U/L (0-41); Albumin Level 3.9 g/dL (3.5-5.2); Alkaline Phosphatase 104 U/L (40-130); Anion Gap 14.3 (5-19); Aspartate Amino Transferase 20 U/L (0-40); Blood Urea Nitrogen 13 mg/dL (8-23); Calcium 8.9 mg/dL (8.5-10.5); Cancer Antigen 19 9 38.32 U/mL (0-35); Carbon Dioxide 24 mmol/L (22-29); Chloride 102 mmol/L (98-107); Globulin 3.3 g/dL (1.3-4.6); Glucose 100 mg/dL (65-115); Osmolality Calculated 282 mOsm/kg (285-295); Potassium 4.3 mmol/L (3.5-5.1); Sodium 136 mmol/L (136-145); Total Bilirubin 0.7 mg/dL (0.15-1.2); Total Protein 7.2 g/dL (6.6-8.7)
== END 2023-08-13 23:59 | disposition home or self-care (01) ==
PROVIDERS: PCP Internal Medicine; Visit Provider Internal Medicine Medical Oncology
DX: C25.0 Malignant neoplasm of head of pancreas (principal); Z79.899 Other long term (current) drug therapy
CPT/HCPCS: 36415; 80053; 85025; 86301; 99214

== ENCOUNTER 2023-08-18 09:08 | Outpatient (CLI) | payer MEDICARE, OTHER, SELFPAY ==
--- NOTE | 2023-08-18 10:30 | CT_ITS ---
WS: [id number] CT CHEST, ABDOMEN AND PELVIS WITH CONTRAST HISTORY: Follow-up pancreatic cancer. TECHNIQUE: Contiguous 5 mm axial imaging performed through the chest, abdomen and pelvis IV contrast, oral contrast has been provided. Coronal and sagittal reformats chest. Coronal and sagittal reformat s through the abdomen and pelvis. All CT scans at [facility] use at least one of these dose o ptimization techniques: automated exposure control; mA and/or kV adjustment per patient size (include s targeted exams where dose is matched to clinical indication); or iterative reconstruction. CONTRAST: Omnipaque 350; 100 mL IV. DLP: 999.65 mGy.cm COMPARISON: 04/07/2022 and 11/21/[address]: Pulmonary hyperexpansion. Chronic emphysema. Known stable very small bilateral pulmonary no dules are reidentified. These nodules have been present on prior studies with no increase in size. Th duncan nodules are less than 5 mm. Bronchiectasis at the lung bases and RIGHT middle lobe. No pneumonia. Normal size heart. No pericardial or pleural effusion. Mild atherosclerosis aorta. Normal pulmonary artery. There are small mediastinal and hilar lymph nodes which are not increasing in size or number. Disc spaces are narrowed and desiccated. Abdomen CT: Pneumobilia similar to prior studies. Reidentified is a hypoechoic nodule in the LEFT lob e of the liver near the falciform ligament which appears slightly more prominent in size. No addition al enhancing lesions within the liver. Normal portal vein. Normal spleen with granulomata. Gallbladde r has been removed. Status post Whipple procedure. There is mild atrophy of the remaining distal panc reatic body and tail with very minimal duct dilatation. No recurrent mass is noted at the surgical si te. No adenopathy. No adrenal mass. No renal obstruction. Mild atherosclerosis aorta. Ventral abdomin al wall hernia. Contains fat only. No evidence of adenopathy or ascites. Omental nodule noted on the prior CT is decreased in size. Ther e is mild thickening at the GE junction which has been previously described. Very similar in appearan ce to the most recent of studies. Pelvic CT: Minimally distended urinary bladder. Marked enlargement of the prostate gland. No adenopat hy or ascites. L5 anterolisthesis by 3 mm. IMPRESSION: 1. Status post Whipple procedure. No recurrent mass at the surgical site or in the peripancreatic sof t tissues. 2. Pneumobilia and prior cholecystectomy. 3. Indeterminate nodule along the falciform ligament measures 9 mm. Appears very slightly more promin ent as compared to the most recent examination of 04/07/2022. Minimal change. 4. Reidentified is mild thickening at the GE junction which is unchanged also. 5. Bilateral very small pulmonary nodules are unchanged. 6. No mediastinal, hilar or abdominal adenopathy.
[2023-08-18] MEDS: iohexol 350 mg/mL 500 mL Btl (per mL) PO (10:37)
[2023-08-18] MEDS: iohexol 350 mg/mL 500 mL Btl (per mL) IV (10:54)
== END 2023-08-18 09:09 | disposition home or self-care (01) ==
LOC: RAD 09:08
PROVIDERS: PCP Internal Medicine; Visit Provider Nurse Practitioner Family
DX: C25.9 Malignant neoplasm of pancreas, unspecified (principal); Z98.890 Other specified postprocedural states; Z90.49 Acquired absence of other specified parts of digestive tract; R91.8 Other nonspecific abnormal finding of lung field; K83.8 Other specified diseases of biliary tract
CPT/HCPCS: 71260; 74177; Q9967

== ENCOUNTER → 2024-01-05 14:02 | Outpatient (BNVA) | payer MEDICARE, OTHER, SELFPAY | PROVIDERS: PCP Internal Medicine; Visit Provider Internal Medicine Cardiovascular Disease | DX: I11.0 Hypertensive heart disease with heart failure (principal); I50.32 Chronic diastolic (congestive) heart failure; I65.23 Occlusion and stenosis of bilateral carotid arteries; E78.5 Hyperlipidemia, unspecified; I77.89 Other specified disorders of arteries and arterioles; E03.9 Hypothyroidism, unspecified; G47.33 Obstructive sleep apnea (adult) (pediatric); Z85.07 Personal history of malignant neoplasm of pancreas | CPT/HCPCS: 99213 ==

== ENCOUNTER 2024-03-03 13:12 | Oncology outpatient (recurring) (ONCR) | payer MEDICARE, OTHER, SELFPAY ==
[2024-03-03 14:04] LABS: Basophils % 0.7 %; Eosinophils # 0.3 10^3/uL (0.0-0.8); Eosinophils % 4.4 %; Hematocrit 42.3 % (37-53); Lymphocytes # 1.8 10^3/uL (0.8-4.8); Lymphocytes % 28.6 %; Mean Corpuscular Hemoglobin 30.6 pg (27-33); Mean Platelet Volume 9.3 fL (7.4-10.4); Monocytes # 0.4 10^3/uL (0.2-0.9); Neutrophils # 3.61 10^3/uL (1.8-7.7); Nucleated Red Blood Cells % 0 %; Platelet Count 182 10^3/cmm (157-399); Red Cell Distribution Width 13.2 % (12.1-15.1); White Blood Count 6.12 10^3/uL (3.29-11.43)
[2024-03-03 14:32] LABS: Alanine Aminotransferase 11 U/L (0-41); Albumin Level 4.1 g/dL (3.5-5.2); Alkaline Phosphatase 122 U/L (40-130); Anion Gap 14.2 (5-19); Aspartate Amino Transferase 17 U/L (0-40); Blood Urea Nitrogen 15 mg/dL (8-23); Calcium 8.6 mg/dL (8.5-10.5); Cancer Antigen 19 9 40.49 U/mL (0-35); Carbon Dioxide 23 mmol/L (22-29); Chloride 104 mmol/L (98-107); Globulin 3.3 g/dL (1.3-4.6); Glucose 153 mg/dL (65-115); Osmolality Calculated 288 mOsm/kg (285-295); Potassium 4.2 mmol/L (3.5-5.1); Sodium 137 mmol/L (136-145); Total Bilirubin 0.4 mg/dL (0.15-1.2); Total Protein 7.4 g/dL (6.6-8.7)
== END 2024-03-13 23:59 | disposition home or self-care (01) ==
PROVIDERS: Nurse Practitioner Family; PCP Internal Medicine; Visit Provider Internal Medicine Medical Oncology
DX: C25.0 Malignant neoplasm of head of pancreas (principal); Z79.899 Other long term (current) drug therapy
CPT/HCPCS: 36415; 80053; 85025; 86301; 99213

== ENCOUNTER 2024-05-11 09:54 | Outpatient (CLI) | payer MEDICARE, OTHER, SELFPAY ==
--- NOTE | 2024-05-11 10:04 | CT_ITS ---
WS: [id number] CT CHEST, ABDOMEN, AND PELVIS TECHNIQUE: Contrast-enhanced CT of the chest, abdomen, and pelvis with coronal and sagittal reformatt ed images. CLINICAL INFORMATION: PANCREATIC CANCER COMPARISON: 08/18/2023 DLP: 868.[address] scans at [facility] use at least one of these dose optimization techniques: automated e xposure control; mA and/or kV adjustment per patient size (includes targeted exams where dose is matc hed to clinical indication); or iterative reconstruction. CT CHEST: Hyperinflation. Chronic emphysema. Stable small subcentimeter nodules unchanged compared to previous. No evidence of progression. Stable bronchiectasis RIGHT middle lobe. No new suspicious pulmonary par enchymal abnormalities. No axillary lymphadenopathy. No mediastinal or hilar lymphadenopathy. Aortic calcification. Coronary calcification. Normal caliber thoracic aorta. CT ABDOMEN AND PELVIS: Pneumobilia unchanged compared to previous. Cholecystectomy. Prior Whipple procedure. No evidence of recurrent peripancreatic or pancreatic mass. A few small low-attenuation lesions in the liver. Some o f these are likely hepatic cysts and some are too small to characterize. Marked prostate enlargement with heterogeneous enhancement suspicious for neoplasia. Recommend correl ation PSA. Prostate measures 6 cm. Sigmoid diverticulosis. No evidence of acute diverticulitis. Maria L l appendix in the RIGHT lower quadrant. Splenic granulomas. Soft tissue thickening at the GE junction similar in appearance to previous. Recommend further evalua tion with endoscopy if this is not been performed. Neoplasm not excluded. Previously described omenta l nodule in the LEFT abdomen no longer visualized. Ventral abdominal wall hernia similar to previous. Additional fat-containing infraumbilical hernia. No herniated bowel. CT/CT chest abdpel w/*[id number] IMPRESSION: 1. No adenopathy in the chest abdomen or pelvis. A few small lymph nodes in th e upper abdomen are unchanged. 2. Diffuse soft tissue thickening at the GE junction and gastric fundus. Recom mend further evaluation with endoscopy. Neoplasm not excluded. This is similar to the prior study. 3. A few scattered subcentimeter nodules bilaterally similar in appearance com pared to previous. 4. Prior postoperative changes Whipple procedure. No evidence of recurrent mas s or lesion along the pancreas. 5. Stable pneumobilia. 6. Prior cholecystectomy. 7. Marked prostate enlargement. Recommend correlation PSA. 8. Previously described omental nodule in the LEFT upper abdomen anteriorly crenshaw s resolved.
[2024-05-11] MEDS: iohexol 350 mg/mL 500 mL Btl (per mL) PO (11:36)
[2024-05-11] MEDS: iohexol 350 mg/mL 500 mL Btl (per mL) IV (11:36)
[2024-05-11 11:47] LABS: Blood Urea Nitrogen 9 mg/dL (8-23)
== END 2024-05-11 09:55 | disposition home or self-care (01) ==
LOC: RAD 09:55
PROVIDERS: Radiology Diagnostic Radiology; PCP Internal Medicine; Visit Provider Internal Medicine
DX: C25.9 Malignant neoplasm of pancreas, unspecified (principal); J43.9 Emphysema, unspecified; R91.8 Other nonspecific abnormal finding of lung field; I70.0 Atherosclerosis of aorta; I25.84 Coronary atherosclerosis due to calcified coronary lesion; J47.9 Bronchiectasis, uncomplicated; K83.8 Other specified diseases of biliary tract; Z90.49 Acquired absence of other specified parts of digestive tract; N40.0 Benign prostatic hyperplasia without lower urinary tract symptoms; K57.90 Diverticulosis of intestine, part unspecified, without perforation or abscess without bleeding; K42.9 Umbilical hernia without obstruction or gangrene; D73.89 Other diseases of spleen
CPT/HCPCS: 71260; 74177; 82565; 84520; Q9967

== ENCOUNTER → 2024-05-30 13:22 | Outpatient (BNVA) | payer MEDICARE, OTHER, SELFPAY | PROVIDERS: PCP Internal Medicine; Visit Provider Surgery | DX: K21.9 Gastro-esophageal reflux disease without esophagitis (principal); R93.5 Abnormal findings on diagnostic imaging of other abdominal regions, including retroperitoneum | CPT/HCPCS: 99214 ==

== ENCOUNTER 2024-06-08 11:14 | Day surgery (SDC) | payer MEDICARE, OTHER, SELFPAY ==
[2024-06-08 11:28] VITALS: BP 110/70; PULSE 64; RESP 18; TEMP 36.6; O2SAT 98
[2024-06-08] MEDS: sodium chloride 0.9% 1,000 ML 30 ML IV (11:42)
--- NOTE | 2024-06-08 12:23 | P.ANESASSM_ITS ---
Pre-Anesthetic Assessment Height/Weight: Height 1.73 m Weight 77.111 kg Temp Pulse Resp BP Pulse Ox O2 Del Method 97.9 F 64 18 110/70 98 Room Air 06/08/24 11:28 06/08/24 11:28 06/08/24 11:28 06/08/24 11:28 06/08/24 11:28 06/08/24 11:28 Preop Diagnosis: abnormal CT scan Operation Date: 06/08/24 12:30 Proposed Procedures p EGD [id number], [id number], G0121(Not Applicable) - Octavio Lam DO s Colonoscopy(Not Applicable) - Octavio Lam DO Familial anesthetic complications: none Was Beta Swetha taken within 24 hours: Yes Last intake: Intake Last Liquid Date 06/08/24 Last Liquid Time 07:30 Last Solid Date 06/06/24 Last Solid Time 18:00 Social No alcohol and No tobacco Airway Submandibular: within normal limits Cervical ROM: within normal limits Mallampati: Class II Dentition: partials (removed) Pulmonary Sleep Apnea (cpap non-compliant) CV/HEM Coronary Artery Disease (bilateral carotid artery stenosis), Hypertension and Peripheral Vascular Disease enlarged ascending aorta saw cardiology 01/05 no changes. denies PA or CHF None reported Hepatic None reported previous mass related to pancreatic cancer. GI Gastroesophageal Reflux Disease Metabolic Thyroid Disease [facility] [place] None reported Neuropsych Seizure (chart mentions seizure history patient denies.) and Transient Ischemic Attack (previous stroke with no residual in chart patient and have no recollection of event. ) history of pancreatic cancer 2017 with reoccurrence 2020 states he is currently clear Anesthetic Plan ASA status: 3 Anesthesia: MAC Medications/Allergies Home Medications Medication Instructions Recorded Confirmed Last Taken Type finasteride 5 mg tablet 5 mg PO DAILY #90 tabs 10/09/22 06/06/24 06/07/24 Rx tamsulosin 0.4 mg capsule 0.4 mg PO BID #180 caps 10/09/22 06/06/24 06/08/24 Rx levothyroxine 75 mcg tablet 75 mcg PO DAILY 03/03/24 06/06/24 06/08/24 History triamcinolone acetonide 0.1 % 1 applic topical TID PRN Rash 03/03/24 06/06/24 06/07/24 History topical ointment metoprolol succinate 50 mg 50 mg PO DAILY 06/06/24 06/06/24 06/08/24 History tablet,extended release 24 hr Allergies Allergy/AdvReac Type Severity Reaction Status Date / Time amoxicillin Allergy ALGY-Rash Verified 05/30/24 13:25 Sulfa (Sulfonamide Allergy Unknown Verified 05/30/24 13:25 Antibiotics) Current Medications Generic Name Dose Route Start Last Admin Trade Name Freq PRN Reason Stop Dose Admin Sodium Chloride 1,000 mls @ 30 mls/hr 06/08/24 11:30 06/08/24 11:42 Sodium Chloride 0.9% IV 06/09/24 11:29 30 mls/hr .Q24H JAMES Administration PFSH Anesthesia Medical History History of seizure History of urinary retention BPH loc w urin obs/LUTS Hypothyroidism Ascending aorta enlargement MELL (obstructive sleep apnea) HTN (hypertension) Dyslipidemia CVA (cerebral vascular accident) Carotid stenosis, bilateral CHF (congestive heart failure) Pancreatic cancer Surgical History Hx of hernia repair 05/12/22 lap incisional hernia repair w/mesh,port removal History of colonoscopy 10+yrs History of removal of Port-a-Cath (04/15/21) previously on right side, removed 2019 History of pancreatic surgery (08/18/18) Pancreaticoduodenectomy S/P cataract extraction Family History Family/Other No problems noted. Brother Cancer LUNG Father , in his 70's Cancer LUNG Mother , at age 84 CAD (coronary artery disease) Diabetes Hypertension Other Stroke Denies family history of Clotting disorder Dementia Hyperlipidemia Psychiatric illness Chronic kidney disease (CKD) Suicide Anesthesia complication Bleeding disorder Lung disease Social History Smoking and tobacco/nicotine status: never used tobacco/nicotine Alcohol intake: never Household members: spouse Marital status: Current occupational status: retired Data Anesthesia Cardiac Studies: Echocardiogram 05/08/21 Sestamibi Stress Test (Cardiology) 03/28
--- NOTE | 2024-06-08 12:39 | W.PM.OPSUD ---
Surgery/Procedure H&P Update DATE OF PROCEDURE: June 08, 2024 DATE H&P PERFORMED: 05/30/24 H&P UPDATE INFORMATION: I have reviewed H&P completed within last 30 days, I have examined patient prior to procedure and No changes to prior documentation PREOP DIAGNOSIS: abnormal CT scan PLANNED PROCEDURE: Operation Date: 06/08/24 12:30 Proposed Procedures p EGD [id number], [id number], G0121(Not Applicable) - DO eugenio Navarro Colonoscopy(Not Applicable) - Octavio Lam DO
[2024-06-08 13:18] VITALS: BP 94/65; PULSE 89; RESP 16; TEMP 36.3; O2SAT 96
[2024-06-08 13:30] VITALS: BP 108/84; PULSE 84; RESP 16; O2SAT 96
[2024-06-08 13:40] VITALS: BP 119/80; PULSE 84; RESP 18; O2SAT 95
[2024-06-08 13:50] VITALS: BP 109/84; PULSE 85; RESP 18; O2SAT 93
--- NOTE | 2024-06-08 14:15 | ANE.PACU2 ---
Inpatient post-anesthesia follow up: Airway intact: Yes Vital signs: Temperature 97.3 F Pulse Rate 85 Respiratory Rate 18 Blood Pressure 109/84 Pulse Oximetry 93 Oxygen Delivery Me thod Room Air Oxygen Flow Rate 3 Fraction of Inspir ed Oxygen Hydration adequate: Yes Nausea and vomiting: No Pain level: 1 Mental status: Baseline
== END 2024-06-08 14:15 | disposition home or self-care (01) ==
PROVIDERS: PCP Internal Medicine; Visit Provider Surgery
PROC: 0DJ08ZZ Inspection of Upper Intestinal Tract, Via Natural or Artificial Opening Endoscopic (ICD-10-PCS; CPT 43235; principal; 2024-06-08 12:30)
PROC: 0DJD8ZZ Inspection of Lower Intestinal Tract, Via Natural or Artificial Opening Endoscopic (ICD-10-PCS; CPT 45378; 2024-06-08 12:30)
DX: Z12.11 Encounter for screening for malignant neoplasm of colon (principal); R93.5 Abnormal findings on diagnostic imaging of other abdominal regions, including retroperitoneum; K22.2 Esophageal obstruction; Z85.07 Personal history of malignant neoplasm of pancreas; K21.9 Gastro-esophageal reflux disease without esophagitis; N40.1 Benign prostatic hyperplasia with lower urinary tract symptoms; N13.8 Other obstructive and reflux uropathy; E03.9 Hypothyroidism, unspecified; G47.33 Obstructive sleep apnea (adult) (pediatric); E78.5 Hyperlipidemia, unspecified; Z86.73 Personal history of transient ischemic attack (TIA), and cerebral infarction without residual deficits; I11.0 Hypertensive heart disease with heart failure; I50.9 Heart failure, unspecified
CPT/HCPCS: 43239; 43249; 88305; G0121; J2704; J3490; J7030

== ENCOUNTER → 2024-06-20 09:15 | Outpatient (BNVA) | payer MEDICARE, OTHER, SELFPAY | PROVIDERS: PCP Internal Medicine; Visit Provider Surgery | DX: Z09 Encounter for follow-up examination after completed treatment for conditions other than malignant neoplasm (principal); K21.9 Gastro-esophageal reflux disease without esophagitis; K22.2 Esophageal obstruction | CPT/HCPCS: 99214 ==

== ENCOUNTER → 2024-07-05 10:09 | Outpatient (BNVA) | payer MEDICARE, OTHER, SELFPAY | PROVIDERS: PCP Internal Medicine; Visit Provider Nurse Practitioner Family | DX: I11.0 Hypertensive heart disease with heart failure (principal); I50.32 Chronic diastolic (congestive) heart failure; Z85.07 Personal history of malignant neoplasm of pancreas; I77.819 Aortic ectasia, unspecified site; Z86.73 Personal history of transient ischemic attack (TIA), and cerebral infarction without residual deficits | CPT/HCPCS: 99214 ==

== ENCOUNTER 2024-08-31 11:52 | Oncology outpatient (recurring) (ONCR) | payer MEDICARE, OTHER, SELFPAY ==
[2024-08-31] MEDS: iohexol 350 mg/mL 500 mL Btl (per mL) PO (12:14)
--- NOTE | 2024-08-31 12:15 | CTR_ITS ---
PROCEDURE INFORMATION: Exam: CT Chest With Contrast; Diagnostic Exam date and time: 08/31/2024 1:19 PM Age: 78 years old Clinical indication: Condition or disease; Other: Pancreas cancer; Prior surgery; Surgery date: 1-6 months; Surgery type: Colon, whipple, gb, stomach; Additional info: Surveillance TECHNIQUE: Imaging protocol: Diagnostic computed tomography of the chest with contrast. Radiation optimization: All CT scans at this facility use at least one of these dose optimization techniques: automated exposure control; mA and/or kV adjustment per patient size (includes targeted exams where dose is matched to clinical indication); or iterative reconstruction. Contrast material: OMNI 350; Contrast volume: 100 ml; Contrast route: INTRAVENOUS (IV); COMPARISON: CT chest abdpel w/*[id number] 05/11/2024 11:27 AM RADIATION DOSE METRICS: Total DLP (mGy-cm): 953.57 FINDINGS: Lungs: There is mild bronchial dilatation bilaterally. Linear scarring involves both lower lobes. Several 3 mm lung nodules are noted in both upper lobes. No lung infiltrate noted. Pleural spaces: Unremarkable. No pneumothorax. No pleural effusion. Heart: Unremarkable. No cardiomegaly. No pericardial effusion. Lymph nodes: Unremarkable. No enlarged lymph nodes. Vasculature: Unremarkable. No aortic aneurysm. Bones/joints: Unremarkable. No acute fracture. Soft tissues: Unremarkable. PROCEDURE INFORMATION: Exam: CT Abdomen And Pelvis With Contrast Exam date and time: 08/31/2024 1:19 PM Age: 78 years old Clinical indication: Condition or disease; Other: Pancreas cancer; Prior surgery; Surgery date: 1-6 months; Surgery type: Colon, whipple, gb, stomach; Additional info: Surveillance TECHNIQUE: Imaging protocol: Computed tomography of the abdomen and pelvis with contrast. Radiation optimization: All CT scans at this facility use at least one of these dose optimization techniques: automated exposure control; mA and/or kV adjustment per patient size (includes targeted exams where dose is matched to clinical indication); or iterative reconstruction. Contrast material: OMNI 350; Contrast volume: 100 ml; Contrast route: INTRAVENOUS (IV); COMPARISON: CT chest abdpel w/*[id number] 05/11/2024 11:27 AM RADIATION DOSE METRICS: Total DLP (mGy-cm): 953.57 FINDINGS: Lungs: Lung bases are clear. No pleural effusion. Liver: There is a 1.3 cm diameter hypodense nodule involving the right hepatic lobe. Next lines surgical change is noted in the right upper quadrant related to previous Whipple procedure. The gallbladder has been resected. Pneumobilia is noted. Gallbladder and biliary ducts: See Liver finding. Pancreas: Normal. No ductal dilation. Spleen: Normal. No splenomegaly. Adrenal glands: Normal. No mass. Kidneys and ureters: Normal. No hydronephrosis. Stomach and bowel: Multiple diverticula involve the sigmoid colon. There is no sign of diverticulitis. Appendix: No evidence of appendicitis. Intraperitoneal space: Unremarkable. No free air. No significant fluid collection. Vasculature: Unremarkable. No abdominal aortic aneurysm. Lymph nodes: Unremarkable. No enlarged lymph nodes. Urinary bladder: Unremarkable as visualized. Reproductive: The prostate gland is abnormally enlarged. Bones/joints: Unremarkable. No acute fracture. Soft tissues: A periumbilical hernia contains small bowel. CT/CT chest abdpel w/*[id number] IMPRESSION: 1. There is no evidence of active neoplastic disease. 2. Stable tiny lung nodules noted once again IMPRESSION: 1. There is no evidence of active neoplastic disease. 2. Surgical changes again noted 3. Stable tiny liver nodule 4. Prostate enlargement 5. Periumbilical hernia 6. Sigmoid diverticulosis
[2024-08-31 13:19] LABS: Blood Urea Nitrogen 8 mg/dL (8-23)
[2024-08-31] MEDS: iohexol 350 mg/mL 500 mL Btl (per mL) IV (13:29)
== END 2024-09-13 23:59 | disposition home or self-care (01) ==
PROVIDERS: PCP Internal Medicine; Visit Provider Internal Medicine Medical Oncology
DX: C25.0 Malignant neoplasm of head of pancreas (principal); Z79.899 Other long term (current) drug therapy
CPT/HCPCS: 71260; 74177; 82565; 84520

== ENCOUNTER 2024-09-28 12:31 | Oncology outpatient (recurring) (ONCR) | payer MEDICARE, OTHER, SELFPAY ==
[2024-09-28 12:56] LABS: Basophils # 0.1 10^3/uL (0.0-0.1); Basophils % 1.1 %; Eosinophils # 0.2 10^3/uL (0.0-0.8); Eosinophils % 3.4 %; Lymphocytes # 1.5 10^3/uL (0.8-4.8); Lymphocytes % 28.3 %; Mean Corpuscular HGB Conc 34.2 g/dL (30-55); Mean Corpuscular Hemoglobin 31.3 pg (27-33); Mean Corpuscular Volume 91.5 fl (82-101); Mean Platelet Volume 9.3 fL (7.4-10.4); Monocytes # 0.4 10^3/uL (0.2-0.9); Monocytes % 8.1 %; Neutrophils # 3.13 10^3/uL (1.8-7.7); Neutrophils % 58.5 %; Nucleated Red Blood Cells % 0 %; Platelet Count 185 10^3/cmm (157-399); Red Cell Distribution Width 13.4 % (12.1-15.1); White Blood Count 5.34 10^3/uL (3.29-11.43)
[2024-09-28 13:23] LABS: Alanine Aminotransferase 15 U/L (0-41); Alkaline Phosphatase 145 U/L (40-130); Anion Gap 12.8 (5-19); Aspartate Amino Transferase 22 U/L (0-40); Blood Urea Nitrogen 10 mg/dL (8-23); Calcium 8.7 mg/dL (8.5-10.5); Cancer Antigen 19 9 43.98 U/mL (0-35); Carbon Dioxide 25 mmol/L (22-29); Chloride 102 mmol/L (98-107); Globulin 3.3 g/dL (1.3-4.6); Glucose 130 mg/dL (65-115); Osmolality Calculated 283 mOsm/kg (285-295); Potassium 3.8 mmol/L (3.5-5.1); Sodium 136 mmol/L (136-145); Total Bilirubin 0.7 mg/dL (0.15-1.2); Total Protein 7.3 g/dL (6.6-8.7)
== END 2024-10-14 23:59 | disposition home or self-care (01) ==
PROVIDERS: Nurse Practitioner Family; PCP Internal Medicine; Visit Provider Internal Medicine Medical Oncology
DX: Z08 Encounter for follow-up examination after completed treatment for malignant neoplasm (principal); Z85.07 Personal history of malignant neoplasm of pancreas; Z90.410 Acquired total absence of pancreas; Z15.01 Genetic susceptibility to malignant neoplasm of breast; Z92.21 Personal history of antineoplastic chemotherapy
CPT/HCPCS: 36415; 80053; 85025; 86301; 99214

== ENCOUNTER 2024-12-29 10:19 | Oncology outpatient (recurring) (ONCR) | payer MEDICARE, OTHER, SELFPAY ==
[2024-12-29 10:38] LABS: Basophils % 0.6 %; Eosinophils # 0.2 10^3/uL (0.0-0.8); Eosinophils % 2.2 %; Hematocrit 40.8 % (37-53); Lymphocytes # 1.6 10^3/uL (0.8-4.8); Mean Corpuscular HGB Conc 34.1 g/dL (30-55); Mean Corpuscular Hemoglobin 29.8 pg (27-33); Mean Corpuscular Volume 87.6 fl (82-101); Mean Platelet Volume 8.9 fL (7.4-10.4); Monocytes # 0.5 10^3/uL (0.2-0.9); Monocytes % 7.4 %; Neutrophils # 4.54 10^3/uL (1.8-7.7); Neutrophils % 66.2 %; Nucleated Red Blood Cells % 0 %; Platelet Count 230 10^3/cmm (157-399); Red Blood Count 4.66 10^6/uL (3.85-5.65); Red Cell Distribution Width 12.9 % (12.1-15.1); White Blood Count 6.86 10^3/uL (3.29-11.43)
[2024-12-29 11:04] LABS: Alanine Aminotransferase 9 U/L (0-41); Alkaline Phosphatase 130 U/L (40-130); Anion Gap 16.8 (5-19); Aspartate Amino Transferase 17 U/L (0-40); Blood Urea Nitrogen 11 mg/dL (8-23); Calcium 8.7 mg/dL (8.5-10.5); Carbon Dioxide 20 mmol/L (22-29); Chloride 104 mmol/L (98-107); Creatinine Clr Calc Pharmacy 69.7185; Globulin 3.6 g/dL (1.3-4.6); Glucose 98 mg/dL (65-115); Osmolality Calculated 283 mOsm/kg (285-295); Potassium 3.8 mmol/L (3.5-5.1); Sodium 137 mmol/L (136-145); Total Protein 7.6 g/dL (6.6-8.7)
[2024-12-29 11:29] LABS: Cancer Antigen 19 9 46.59 U/mL (0-35)
== END 2025-01-11 23:59 | disposition home or self-care (01) ==
PROVIDERS: PCP Internal Medicine; Visit Provider Internal Medicine Medical Oncology
DX: Z08 Encounter for follow-up examination after completed treatment for malignant neoplasm (principal); Z85.07 Personal history of malignant neoplasm of pancreas; Z90.410 Acquired total absence of pancreas; Z92.21 Personal history of antineoplastic chemotherapy
CPT/HCPCS: 36415; 80053; 84153; 84403; 85025; 86301; 99214

== ENCOUNTER → 2025-01-06 09:34 | Outpatient (BNVA) | payer MEDICARE, OTHER, SELFPAY | PROVIDERS: PCP Internal Medicine; Visit Provider Internal Medicine Cardiovascular Disease | DX: I77.810 Thoracic aortic ectasia (principal); I11.0 Hypertensive heart disease with heart failure; I50.9 Heart failure, unspecified; Z86.73 Personal history of transient ischemic attack (TIA), and cerebral infarction without residual deficits; Z85.07 Personal history of malignant neoplasm of pancreas | CPT/HCPCS: 99214 ==

== ENCOUNTER 2025-01-17 07:53 | Oncology outpatient (recurring) (ONCR) | payer MEDICARE, OTHER, SELFPAY ==
--- NOTE | 2025-01-17 08:45 | USCV_ITS ---
Misbah Springer Age: 79 Gender: M : 1945 Exam Date: 01/17/2025 08:28 Ordering Phys: Prasanth Pond MD ([email or web address]) Technologist: RICARDO Exam Location: [facility] – [place] Indication: h/o chemo, Aortic root dilation BP: 104 / 60 HR: 53 Rhythm: Sinus Technical Quality: Adequate MEASUREMENTS (Male / Female) Normal Values 2D ECHO LV Diastolic Diameter PLAX 5.5 cm 4.2 - 5.9 / 3.9 - 5.3 cm IVS Diastolic Thickness 0.9 cm 0.6 - 1.0 / 0.6 - 0.9 cm IVS Systolic Thickness 1.5 cm LVPW Diastolic Thickness 1.1 cm 0.6 - 1.0 / 0.6 - 0.9 cm LVPW Systolic Thickness 1.4 cm LVOT Diameter 2.0 cm LV Ejection Fraction 2D Teich 62.6 % LV Ejection Fraction MOD 4C 61.4 % LV Ejection Fraction MOD 2C 61.6 % LV Ejection Fraction 2C AL 66.5 % LA Diameter 3.4 cm RA Systolic Volume 4C AL 44.5 ml RA Systolic Volume 4C MOD 39.2 ml LA Sys Volume AL 26.7 cm cubed LA Sys Volume Index AL 13.3 cm cubed/m squared Aorta at Sinotubular Diameter 3.0 cm M-MODE LA Ao Ratio MM 1.8 AV Cusp Separation MM 1.7 cm DOPPLER AV Peak Velocity 103.0 cm/s LVOT Peak Velocity 73.0 cm/s AV Area Cont Eq vti 2.1 cm squared AV Area Cont Eq pk 2.2 cm squared MV Peak Velocity 74.0 cm/s MV Area PHT 3.1 cm squared Mitral E to A Ratio 0.7 TR Peak Velocity 173.0 cm/s TR Peak Gradient 12.0 mmHg TV Peak E Velocity 61.0 cm/s PV Peak Velocity 89.0 cm/s FINDINGS Left Ventricle Normal left ventricular size, systolic function and wall thickness, with no regional wall motion abnormalities. Left ventricular ejection fraction is estimated at 60 %. Grade I/IV diastolic dysfunction (abnormal relaxation filling pattern), normal to mildly elevated filling pressures. Right Ventricle The right ventricle is normal in size and function. Right Atrium The right atrium is normal in size. Left Atrium The left atrium is normal in size. Mitral Valve Structurally normal mitral valve without significant stenosis or prolapse. There is no mitral regurgitation. Aortic Valve Mild aortic valve calcification. No aortic valve stenosis. Trace aortic valve regurgitation. Tricuspid Valve Structurally normal tricuspid valve without significant stenosis or regurgitation. Pulmonary artery systolic pressure is normal. Pulmonic Valve Structurally normal pulmonic valve without significant stenosis. There is no pulmonic regurgitation. Pericardium Normal pericardium without effusion. Aorta Normal ascending aorta dimension. IVC The inferior vena cava appears normal. CONCLUSIONS Normal left ventricular size, systolic function and wall thickness, with no regional wall motion abnormalities. Left ventricular ejection fraction is estimated at 60 %. Grade I/IV diastolic dysfunction (abnormal relaxation filling pattern), normal to mildly elevated filling pressures. There is no pericardial effusion. Right atrial pressure is around mm of mercury. Prasanth Pond MD (Electronically Signed) Final Date: 29 Jan 2025 22:24 S
== END 2025-02-11 23:59 | disposition home or self-care (01) ==
PROVIDERS: PCP Internal Medicine; Visit Provider Internal Medicine Cardiovascular Disease
DX: I77.810 Thoracic aortic ectasia (principal); I51.89 Other ill-defined heart diseases
CPT/HCPCS: 93306

== ENCOUNTER 2025-02-20 10:00 | Oncology outpatient (recurring) (ONCR) | payer MEDICARE, OTHER, SELFPAY ==
--- NOTE | 2025-02-13 12:00 | CT_ITS ---
WS: [id number] CT CHEST, ABDOMEN, AND PELVIS TECHNIQUE: Contrast-enhanced CT of the chest, abdomen, and pelvis with coronal and sagittal reformatted images. CLINICAL INFORMATION: malignant neoplasm of head of pancreas COMPARISON: None. DLP: 835.[address] scans at [facility] use at least one of these dose optimization techniques: automated exposure control; mA and/or kV adjustment per patient size (includes targeted exams where dose is matched to clinical indication); or iterative reconstruction. CT CHEST: Moderate chronic emphysematous changes. No new suspicious pulmonary parenchymal abnormalities. Bibasilar atelectasis. Slight subsegmental atelectasis in the lung bases. Few tiny micronodules in the LEFT upper lobe are unchanged. New small nodule along the LEFT fissure measuring 6 mm. Recommend 3 to 6-month follow-up. Remainder of the small nodules bilaterally are stable. Normal caliber thoracic aorta. Coronary calcification. No mediastinal or hilar lymphadenopathy. No axillary lymphadenopathy. Proximal main pulmonary arteries are normal. CT ABDOMEN AND PELVIS: Markedly enlarged prostate measuring 6.6 cm. Recommend correlation PSA. Stable small low-attenuation lesions involving the RIGHT hepatic lobe. Postoperative changes RIGHT upper quadrant related to previous Whipple procedure. Cholecystectomy. Pneumobilia. Sigmoid diverticulosis. Normal portal vein and splenic vein. Splenic granulomas. Adrenal glands are normal. Normal renal parenchymal enhancement. No hydronephrosis. Markedly enlarged prostate. This measures 6.6 cm. Recommend correlation PSA. Extensive sigmoid diverticulosis. Adrenal glands are normal. Normal caliber abdominal aorta. Mild aortic calcification. Fat-containing umbilical and infraumbilical hernias. Supraumbilical hernia with abutting and slightly prot ruding bowel unchanged from previous. Grade 1 anterolisthesis L5 on S1. Osteopenia. 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 Fat-containing RIGHT inguinal hernia. CT/CT chest abdpel w/*[id number] IMPRESSION: 1. New LEFT perifissural nodule measuring 6 mm. Recommend 3-month chest CT fol low-up. 2. Remainder of the subcentimeter scattered pulmonary nodules are stable. 3. Prior Whipple procedure with pneumobilia. 4. Stable tiny low-attenuation lesions in the RIGHT hepatic lobe. 5. Markedly enlarged prostate. Recommend correlation PSA. 6. No evidence of metastatic disease in the abdomen or pelvis.
[2025-02-13] MEDS: iohexol 350 mg/mL 500 mL Btl (per mL) PO (13:20)
[2025-02-13] MEDS: iohexol 350 mg/mL 500 mL Btl (per mL) IV (13:20)
[2025-02-13 13:23] LABS: Blood Urea Nitrogen 11 mg/dL (8-23)
[2025-02-20 10:22] LABS: Basophils % 0.8 %; Eosinophils # 0.2 10^3/uL (0.0-0.8); Eosinophils % 3.5 %; Hematocrit 42.6 % (37-53); Lymphocytes # 1.3 10^3/uL (0.8-4.8); Lymphocytes % 25.8 %; Mean Corpuscular HGB Conc 33.3 g/dL (30-55); Mean Corpuscular Hemoglobin 30.1 pg (27-33); Mean Corpuscular Volume 90.4 fl (82-101); Mean Platelet Volume 9.2 fL (7.4-10.4); Monocytes # 0.5 10^3/uL (0.2-0.9); Monocytes % 9.1 %; Neutrophils # 2.98 10^3/uL (1.8-7.7); Neutrophils % 60.6 %; Nucleated Red Blood Cells % 0 %; Platelet Count 169 10^3/cmm (157-399); Red Blood Count 4.71 10^6/uL (3.85-5.65); Red Cell Distribution Width 13.6 % (12.1-15.1); White Blood Count 4.92 10^3/uL (3.29-11.43)
[2025-02-20 10:47] LABS: Alanine Aminotransferase 9 U/L (0-41); Albumin Level 3.8 g/dL (3.5-5.2); Alkaline Phosphatase 130 U/L (40-130); Anion Gap 15.8 (5-19); Aspartate Amino Transferase 15 U/L (0-40); Blood Urea Nitrogen 11 mg/dL (8-23); Calcium 8.9 mg/dL (8.5-10.5); Cancer Antigen 19 9 48.65 U/mL (0-35); Carbon Dioxide 22 mmol/L (22-29); Chloride 104 mmol/L (98-107); Globulin 3.4 g/dL (1.3-4.6); Glucose 104 mg/dL (65-115); Osmolality Calculated 286 mOsm/kg (285-295); Potassium 3.8 mmol/L (3.5-5.1); Sodium 138 mmol/L (136-145); Total Bilirubin 0.5 mg/dL (0.15-1.2); Total Protein 7.2 g/dL (6.6-8.7)
== END 2025-03-13 23:59 | disposition home or self-care (01) ==
PROVIDERS: PCP Internal Medicine; Visit Provider Internal Medicine Medical Oncology
DX: Z53.9 Procedure and treatment not carried out, unspecified reason; Z08 Encounter for follow-up examination after completed treatment for malignant neoplasm; Z85.07 Personal history of malignant neoplasm of pancreas; R91.1 Solitary pulmonary nodule; Z92.21 Personal history of antineoplastic chemotherapy
CPT/HCPCS: 36415; 71260; 74177; 80053; 82565; 84520; 85025; 86301; 99214